=== PATIENT | male | born 1945 | race African-American/Black ===

== ENCOUNTER 2016-12-07 08:31 | Inpatient (IN) | payer MEDICARE ==
[2016-12-07] MEDS ORDERED: NS 0.9% 1000 ML* 1,000 ML IV SCH ×2 (08:45→11:45)
[2016-12-07 08:55] LABS: Hematocrit 43 % (42-52); Mean Corpuscular HGB Conc 32 g/dl (31-36); Mean Corpuscular Hemoglobin 29 pg (27-31); Mean Corpuscular Volume 88 fL (80-94); Mean Platelet Volume 9 um3 (7.4-10.4); Red Blood Count 4.91 10^6/ul (4.0-5.4); Red Cell Distribution Width 16 % (10.5-15); White Blood Count 11.8 10^3/ul (3.5-10.8)
[2016-12-07 09:03] LABS: Add Diff/Slide Review? Slide Review Added; Comments Flag Yes
[2016-12-07 09:13] LABS: Troponin I 0.03 ng/mL (<0.04)
[2016-12-07 09:15] LABS: ALT 171 U/L (7-52); AST 78 U/L (13-39); Albumin 3.6 g/dL (3.2-5.2); Anion Gap 7 mmol/L (2-11); B Type Natriuretic Peptide 39 pg/mL; Blood Urea Nitrogen 41 mg/dL (6-24); CO2 Carbon Dioxide 25 mmol/L (22-32); Calcium 10.5 mg/dL (8.6-10.3); Chloride 121 mmol/L (101-111); Creatine Kinase 606 U/L (10-223); EGFR African American 81.2 (>60); EGFR Non-African American 63.1 (>60); Globulin 4.2 g/dL (2-4); Glucose 166 mg/dL (70-100); Lipase < 10 U/L (11.0-82.0); Magnesium 2.5 mg/dL (1.9-2.7); Potassium 3.7 mmol/L (3.5-5.0); Sodium 153 mmol/L (133-145); Total Protein 7.8 g/dL (6.4-8.9)
--- NOTE | 2016-12-07 09:16 | RAD ---
INDICATION: Altered mental status. COMPARISON: Comparison is made with a prior CT of the brain from March 15, 2016. TECHNIQUE: Contiguous axial sections of the brain were obtained from the skull base to the vertex without contrast. FINDINGS: The ventricles, cisterns and sulci are enlarged consistent with diffuse atrophy. There are multiple focal areas of decreased density in the subcortical and periventricular white matter suggestive of severe chronic small vessel ischemic changes. There is a more focal area of decreased density in the left caudate nucleus most consistent with an old lacunar infarct, unchanged. There is no evidence for hemorrhage. There is an expansile mass present within the left maxillary sinus which is partially visualized on this study. There is mild mucosal thickening within the left ethmoid air cells. The visualized portion of the paranasal sinuses and mastoid air cells otherwise appear unremarkable. IMPRESSION: 1. NO EVIDENCE FOR GROSS ACUTE INFARCT, MASS EFFECT OR HEMORRHAGE. 2. ATROPHY AND SEVERE CHRONIC SMALL VESSEL ISCHEMIC CHANGES, UNCHANGED. 3. SMALL LACUNAR INFARCT, UNCHANGED. 4. EXPANSILE MASS IN THE LEFT MAXILLARY SINUS PARTIALLY VISUALIZED ON THIS STUDY.
--- NOTE | 2016-12-07 09:18 | RAD ---
INDICATION: Altered mental status, weakness. Lives alone. History unclear. COMPARISON: March 03, 2014 TECHNIQUE: Multidetector CT images foramen magnum to lung apices without contrast. Multiplanar reformation. REPORT: Negative for vertebral body or posterior element fracture. Negative for facet subluxation at any level. Negative for paravertebral hematoma. Multilevel mild degenerative spondylosis with predominant anterior vertebral endplate osteophytosis. Mild dorsal disc osteophyte complexes from C2-C3 through C6-C7. At C2-C3 and C3-C4 there is mild resulting impression on the ventral margin of the thecal sac consistent with mild acquired central canal stenosis. IMPRESSION: Negative for traumatic cervical spine injury.
[2016-12-07 09:22] LABS: Acetaminophen < 15 mcg/mL; Alcohol < 10 mg/dL (<10)
[2016-12-07] MEDS ORDERED: cefTRIAXone(*) 1 GM in NS 0.9% 50 ML* 50 ML IVPB ONE (09:32)
--- NOTE | 2016-12-07 09:32 | RAD ---
INDICATION: Altered mental status, facial swelling. Strokelike symptoms. Unclear history. COMPARISON: March 15, 2016 CT. TECHNIQUE: Multidetector CT base of the skull through mandible without contrast. Multiplanar reformation. REPORT: The LEFT mandibular ramus and condylar portion/TMJ joint are incompletely included in the [id number] limiting assessment. The visualized mandible is intact. Normal bilateral TMJ alignment. 6.4 cm AP by 5.8 cm transverse by 6.1 cm cephalocaudal heterogeneous density soft tissue mass centered at the RIGHT maxillary sinus with expansion of the sinus and osteolysis at both the medial, lateral, and inferior sinus narayanan with extension to the oropharyngeal mucosal space, nasal cavity, and laterally with mass impression on the overlying muscles of mastication facial expression. The mass demonstrates interval enlargement and further osteolysis of the anterior, medial, lateral, and inferior narayanan of the LEFT maxillary sinus as well as the base of the maxilla. The remaining paranasal sinuses are grossly clear. No acute traumatic facial fracture evident. No lymphadenopathy evident within the [id number]. No soft tissue hematoma evident. IMPRESSION: 1. No evidence for acute maxillofacial traumatic injury. 2. Interval growth of large mass lesion centered at the LEFT maxillary sinus with surrounding osteolysis of the maxillary sinus narayanan and base of the maxilla as described. Given the aggressive features and interval growth tissue sampling suggested to assess for malignancy if not previously performed.
[2016-12-07 09:33] LABS: TSH (Thyroid Stimulating Horm) 0.76 mcIU/mL (0.34-5.60)
--- NOTE | 2016-12-07 09:50 | RAD ---
Indication: Altered mental status. Strokelike symptoms. Comparison: August 17, 2016 Technique: Sitting AP chest 0905 hours Report: Mild retrocardiac LEFT lower lobe consolidation is new compared with the prior exam. The lungs and pleural spaces are otherwise clear. Rarefaction of the pulmonary markings favoring emphysema. The heart, pulmonary vasculature, and mediastinal contours are unremarkable. IMPRESSION: Consolidation at the LEFT lung base is concerning for potential pneumonia. Correlate with clinical assessment.
[2016-12-07 10:20] LABS: Alkaline Phosphatase 68 U/L (34-104)
--- NOTE | 2016-12-07 10:36 | ED ---
Raúl, DoctorRaquel, scribed for Kaden Padilla MD on 12/07/16 at 0855 . Neurological HPI - HPI Summary HPI Summary: LEVEL 5 CAVEAT secondary to AMS and pt being minimally responsive. This 71 y/o male arrives to [facility] via ambulance for stroke-like symptoms. Pt was last seen at his baseline about 1-2 days ago. Pt was found this morning minimally responsive. He is unable to answer any questions or follow commands at time of initial evaluation. PMHx is significant for CVA, HLD, and DM type II. He is known to be nonverbal at his baseline. - History of Current Complaint Chief Complaint: EDAltMentalStatus Stated Complaint: STROKE-LIKE SYMPTOMS Time Seen by Provider: 12/07/16 08:35 Hx Obtained From: EMS, Medical Records Hx From Patient Unobtainable Due To: Altered Mental Status - Level 5 Caveat Onset/Duration: Still Present Current Severity: Moderate Seizure Severity: Moderate Character: Responsiveness Aggravating: Nothing Alleviating: Nothing Associated Signs and Symptoms: Positive: AMS - Additional Pertinent History Primary Care Physician: ROBERTO - Allergy/Home Medications Allergies/Adverse Reactions: Allergies Allergy/AdvReac Type Severity Reaction Status Date / Time No Known Allergies Allergy Verified 05/15/16 16:01 PMH/Surg Hx/FS Hx/Imm Hx Endocrine/Hematology History: Reports: Hx Diabetes - DM II Denies: Hx Anticoagulant Therapy, Hx Thyroid Disease Cardiovascular History: Reports: Hx Hypertension Denies: Hx Pacemaker/ICD Respiratory History: Denies: Hx Asthma, Hx Chronic Obstructive Pulmonary Disease (COPD) History: Denies: Hx Renal Disease Sensory History: Denies: Hx Deafness, Hx Hearing Aid, Hx Hearing Problem Neurological History: Denies: Hx Dementia, Hx Seizures Psychiatric History: Denies: Hx Eating Disorder, Hx Panic Disorder, Hx of Violent Episodes Against Others, Hx Substance Abuse Infectious Disease History: Denies: Hx Hepatitis, Hx Human Immunodeficiency Virus (HIV) - Family History Known Family History: Positive: Unknown - LEVEL 5 CAVEAT secondary to AMS - Social History Occupation: Retired Alcohol Use: None Hx Substance Use: No Substance Use Type: Reports: None Hx Tobacco Use: Yes Smoking Status (MU): Light Every Day Tobacco Smoker Type: Cigarettes Amount Used/How Often: 1 a day Length of Time of Smoking/Using Tobacco: 30 Have You Smoked in the Last Year: Yes Review of Systems - ROS Summary Review of Systems Summary: ROS limited due to Level 5 Caveat Neurological: Other - Positive for AMS. Minimally responsive All Other Systems Reviewed And Are Negative: No Physical Exam Triage Information Reviewed: Yes Vital Signs On Initial Exam: Initial Vitals BP 133/90 12/07/16 08:46 Vital Signs Reviewed: Yes Skin: Positive: Warm, Skin Color Reflects Adequate Perfusion, Dry Eyes: Positive: EOMI - pupils minimally reactive, ASHLEY - pupils minimally reactive ENT: Positive: Normal ENT inspection Neck: Positive: Supple, Nontender Respiratory/Lung Sounds: Positive: Clear to Auscultation, Breath Sounds Present Cardiovascular: Positive: IRR, Tachycardia Abdomen Description: Positive: Nontender, Soft Bowel Sounds: Positive: Present Musculoskeletal: Negative: Strength/ROM Intact - unable to move legs or right arm Neurological: Positive: Other - Somewhat able to control movement of LUE arm.. Negative: Sensory/Motor Intact - Patient does not move either leg or right arm, minimally responsive Psychiatric: Positive: Other - Patient minimally responsive, Patient Uncooperative for Exam Diagnostics - Vital Signs Vital Signs Temp Pulse Resp BP Pulse Ox 12/07/16 10:00 110 19 100 12/07/16 09:30 115 22 99 12/07/16 09:10 116 20 99 12/07/16 08:49 98.8 F 88 22 133/90 97 12/07/16 08:47 117 21 92 12/07/16 08:46 133/90 - Laboratory Lab Results: Lab Results 12/07/16 12/07/16 12/07/16 Range/Units 08:45 08:45 08:45 WBC 11.8 H (3.5-10.8) 10^3/ul RBC 4.91 (4.0-5.4) 10^6/ul Hgb 14.0 (14.0-18.0) g/dl Hct 43 (42-52) % MCV 88 (80-94) fL MCH 29 (27-31) pg MCHC 32 (31-36) g/dl RDW 16 H (10.5-15) % Plt Count 267 (150-450) 10^3/ul MPV 9 (7.4-10.4) um3 Neut % (Auto) 86.3 H (38-83) % Lymph % (Auto) 6.1 L (25-47) % [place] % (Auto) 7.1 (1-9) % Eos % (Auto) 0.1 (0-6) % Baso % (Auto) 0.4 (0-2) % Absolute Neuts (auto) 10.2 H (1.5-7.7) 10^3/ul Absolute Lymphs (auto) 0.7 L (1.0-4.8) 10^3/ul Absolute Monos (auto) 0.8 (0-0.8) 10^3/ul Absolute Eos (auto) 0 (0-0.6) 10^3/ul Absolute Basos (auto) 0 (0-0.2) 10^3/ul Absolute Nucleated RBC 0 10^3/ul Nucleated RBC % 0 INR (Anticoag Therapy) 1.18 H (0.89-1.11) APTT 29.5 (26.0-36.3) seconds Sodium 153 H (133-145) mmol/L Potassium 3.7 (3.5-5.0) mmol/L Chloride 121 H (101-111) mmol/L Carbon Dioxide 25 (22-32) mmol/L Anion Gap 7 (2-11) mmol/L BUN 41 H (6-24) mg/dL Creatinine 1.14 (0.67-1.17) mg/dL Est GFR ( Amer) 81.2 (>60) Est GFR (Non-Af Amer) 63.1 (>60) BUN/Creatinine Ratio 36.0 H (8-20) Glucose 166 H (70-100) mg/dL Lactic Acid (0.5-2.0) mmol/L Calcium 10.5 H (8.6-10.3) mg/dL Magnesium 2.5 (1.9-2.7) mg/dL Total Bilirubin 0.70 (0.2-1.0) mg/dL AST 78 H (13-39) U/L ALT 171 H (7-52) U/L Alkaline Phosphatase 68 (34-104) U/L Ammonia Total Creatine Kinase 606 H (10-223) U/L CK-MB (CK-2) 2.1 (0.6-6.3) ng/mL Troponin I 0.03 (<0.04) ng/mL C-Reactive Protein 15.70 H (< 5.00) mg/L B-Natriuretic Peptide ( - 100) pg/mL Total Protein 7.8 (6.4-8.9) g/dL Albumin 3.6 (3.2-5.2) g/dL Globulin 4.2 H (2-4) g/dL Albumin/Globulin Ratio 0.9 L (1-3) Lipase < 10 L (11.0-82.0) U/L TSH 0.76 (0.34-5.60) mcIU/mL Acetaminophen < 15 mcg/mL Serum Alcohol < 10 (<10) mg/dL 12/07/16 12/07/16 Range/Units 08:45 08:45 WBC (3.5-10.8) 10^3/ul RBC (4.0-5.4) 10^6/ul Hgb (14.0-18.0) g/dl Hct (42-52) % MCV (80-94) fL MCH (27-31) pg MCHC (31-36) g/dl RDW (10.5-15) % Plt Count (150-450) 10^3/ul MPV (7.4-10.4) um3 Neut % (Auto) (38-83) % Lymph % (Auto) (25-47) % [place] % (Auto) (1-9) % Eos % (Auto) (0-6) % Baso % (Auto) (0-2) % Absolute Neuts (auto) (1.5-7.7) 10^3/ul Absolute Lymphs (auto) (1.0-4.8) 10^3/ul Absolute Monos (auto) (0-0.8) 10^3/ul Absolute Eos (auto) (0-0.6) 10^3/ul Absolute Basos (auto) (0-0.2) 10^3/ul Absolute Nucleated RBC 10^3/ul Nucleated RBC % INR (Anticoag Therapy) (0.89-1.11) APTT (26.0-36.3) seconds Sodium (133-145) mmol/L Potassium (3.5-5.0) mmol/L Chloride (101-111) mmol/L Carbon Dioxide (22-32) mmol/L Anion Gap (2-11) mmol/L BUN (6-24) mg/dL Creatinine (0.67-1.17) mg/dL Est GFR ( Amer) (>60) Est GFR (Non-Af Amer) (>60) BUN/Creatinine Ratio (8-20) Glucose (70-100) mg/dL Lactic Acid 1.7 (0.5-2.0) mmol/L Calcium (8.6-10.3) mg/dL Magnesium (1.9-2.7) mg/dL Total Bilirubin (0.2-1.0) mg/dL AST (13-39) U/L ALT (7-52) U/L Alkaline Phosphatase (34-104) U/L Ammonia Pending Total Creatine Kinase (10-223) U/L CK-MB (CK-2) (0.6-6.3) ng/mL Troponin I (<0.04) ng/mL C-Reactive Protein (< 5.00) mg/L B-Natriuretic Peptide 39 ( - 100) pg/mL Total Protein (6.4-8.9) g/dL Albumin (3.2-5.2) g/dL Globulin (2-4) g/dL Albumin/Globulin Ratio (1-3) Lipase (11.0-82.0) U/L TSH (0.34-5.60) mcIU/mL Acetaminophen mcg/mL Serum Alcohol (<10) mg/dL Result Diagrams: 12/07/16 08:45 12/07/16 08:45 Lab Statement: Any lab studies that have been ordered have been reviewed, and results considered in the medical decision making process. - Radiology Chest X-Ray Radiology Interpretation Completed By: Radiologist - IMPRESSION: Consolidation at the LEFT lung base is concerning for potential pneumonia. Correlate with clinical assessment. - CT Maxillofacial CT CT Interpretation Completed By: Radiologist - IMPRESSION: 1. No evidence for acute maxillofacial traumatic injury. 2. Interval growth of large mass lesion centered at the LEFT maxillary sinus with surrounding osteolysis of the maxillary sinus narayanan and base of the maxilla as described. Given the aggressive features and interval growth tissue sampling suggested to assess for malignancy if not previously performed. Cervical Spine CT CT Interpretation Completed By: Radiologist - IMPRESSION: Negative for traumatic cervical spine injury. Brain CT CT Interpretation Completed By: Radiologist - IMPRESSION: 1. NO EVIDENCE FOR GROSS ACUTE INFARCT, MASS EFFECT OR HEMORRHAGE. 2. ATROPHY AND SEVERE CHRONIC SMALL VESSEL ISCHEMIC CHANGES, UNCHANGED. 3. SMALL LACUNAR INFARCT, UNCHANGED. 4. EXPANSILE MASS IN THE LEFT MAXILLARY SINUS PARTIALLY VISUALIZED ON THIS STUDY. Course/Dx - Course Assessment/Plan: ADMIT HOSPITALIST STABLE. - Diagnoses Provider Diagnoses: Altered mental state, Weakness - Physician Notifications Discussed Care of Patient With: 09:41 - Discussed patient care with Dr. Chavira ( hospitalist). Dr. Chavira agrees to admit him. Discharge - Discharge Plan Condition: Stable Disposition: ADMITTED TO [facility] Referrals: Destiney Can MD [Primary Care Provider] - The documentation as recorded by the Doctor mendoza Tahera accurately reflects the service I personally performed and the decisions made by me, Kaden Padilla MD.
[2016-12-07] MEDS ORDERED: Acetaminophen TAB* 325 MG PO PRN (11:36)
[2016-12-07] MEDS ORDERED: Dextrose 50% Syringe 50 ML* 25 GM/50 ML SYRINGE IV PUSH PRN (11:36)
[2016-12-07] MEDS ORDERED: Ondansetron INJ* 2 MG/ML VIAL IV PRN (11:36)
[2016-12-07 11:48] LABS: Ammonia 57 mol/L (16-53)
[2016-12-07] MEDS: NS 0.9% 1000 ML* 2,000 ML IV ONE ×2 (11:58→12:52)
--- NOTE | 2016-12-07 12:42 | RAD ---
Indication: RIGHT hip through knee pain without preceding injury. Comparison: No relevant prior exams available on the [facility] [place] PACS. Technique: AP pelvis and AP and crosstable lateral views RIGHT hip. AP and crosstable lateral views RIGHT femur. AP and crosstable lateral views RIGHT knee. Report: The RIGHT hip is normally located. No fracture RIGHT proximal femur or pelvis or pelvic joint diastases. Mild superolateral joint space narrowing and osteophytosis at the RIGHT hip. Negative for fracture of the femur or about the knee. Minimal osteophytosis at the knee. Trace suprapatellar joint effusion. Negative for fracture or malalignment at the knee. Diffuse vascular calcifications. Unremarkable soft tissue contours. IMPRESSION: 1. No radiographic evidence for RIGHT hip fracture. As x-rays may be negative with nondisplaced hip fracture if there is persistent clinical concern MRI or in setting of contraindication to MRI or limitation in emergent access to MRI CT would be suggested. 2. Negative for diaphyseal fracture of the RIGHT femur or fracture about the knee. 3. Mild hip and knee osteoarthritis. 4. Peripheral vascular disease.
--- NOTE | 2016-12-07 12:42 | RAD ---
Indication: RIGHT hip through knee pain without preceding injury. Comparison: No relevant prior exams available on the [facility] [place] PACS. Technique: AP pelvis and AP and crosstable lateral views RIGHT hip. AP and crosstable lateral views RIGHT femur. AP and crosstable lateral views RIGHT knee. Report: The RIGHT hip is normally located. No fracture RIGHT proximal femur or pelvis or pelvic joint diastases. Mild superolateral joint space narrowing and osteophytosis at the RIGHT hip. Negative for fracture of the femur or about the knee. Minimal osteophytosis at the knee. Trace suprapatellar joint effusion. Negative for fracture or malalignment at the knee. Diffuse vascular calcifications. Unremarkable soft tissue contours. IMPRESSION: 1. No radiographic evidence for RIGHT hip fracture. As x-rays may be negative with nondisplaced hip fracture if there is persistent clinical concern MRI or in setting of contraindication to MRI or limitation in emergent access to MRI CT would be suggested. 2. Negative for diaphyseal fracture of the RIGHT femur or fracture about the knee. 3. Mild hip and knee osteoarthritis. 4. Peripheral vascular disease.
--- NOTE | 2016-12-07 12:42 | RAD ---
Indication: RIGHT hip through knee pain without preceding injury. Comparison: No relevant prior exams available on the [facility] [place] PACS. Technique: AP pelvis and AP and crosstable lateral views RIGHT hip. AP and crosstable lateral views RIGHT femur. AP and crosstable lateral views RIGHT knee. Report: The RIGHT hip is normally located. No fracture RIGHT proximal femur or pelvis or pelvic joint diastases. Mild superolateral joint space narrowing and osteophytosis at the RIGHT hip. Negative for fracture of the femur or about the knee. Minimal osteophytosis at the knee. Trace suprapatellar joint effusion. Negative for fracture or malalignment at the knee. Diffuse vascular calcifications. Unremarkable soft tissue contours. IMPRESSION: 1. No radiographic evidence for RIGHT hip fracture. As x-rays may be negative with nondisplaced hip fracture if there is persistent clinical concern MRI or in setting of contraindication to MRI or limitation in emergent access to MRI CT would be suggested. 2. Negative for diaphyseal fracture of the RIGHT femur or fracture about the knee. 3. Mild hip and knee osteoarthritis. 4. Peripheral vascular disease.
[2016-12-07] MEDS: cefTRIAXone VIAL(*) 1,000 MG in NS 0.9% 50 ML* 50 ML IVPB SCH (12:53)
[2016-12-07] MEDS: Azithromycin IV(*) 500 MG in NS 0.9% 250 ML* 250 ML IVPB SCH (14:44)
[2016-12-07] MEDS: Aspirin Low Dose CHEW TAB* 81 MG PO SCH (14:46)
--- NOTE | 2016-12-07 14:46 | HP ---
HISTORY AND PHYSICAL: DATE OF ADMISSION: 12/07/16 PRIMARY CARE PROVIDER: Dr. Can. ATTENDING PHYSICIAN WHILE IN THE HOSPITAL: Edgar Chavira MD * (report dictated by Phillip Burton NP). CHIEF COMPLAINT: 1. Weakness. 2. Altered mental status. HISTORY OF PRESENT ILLNESS: I would like to preface this report by stating that the patient has a significant amount of altered mental status. He does not give much history and there is no family member present, but I did touch base with the patient's significant other and the ER physician in charge in the patient's care. The patient carries a history of stroke according to the , with residual left- sided weakness, diabetes, hypertension and hyperlipidemia. He comes in today, he was found by his aide or by the it is unsure, he was not acting himself, he was weak. He apparently was sick on Wednesday and the ambulance was called by the . It was felt that the reason he was not acting himself on Wednesday as his sugars were low and the patient did not come into the ER. The patient has not really been eating or drinking at his baseline over the weekend. The states that he has been coughing and having , in her words, a junky cough for the last couple days. There has been no sick contacts, and she also states that she has noticed the patient has a new open area on his sacrum, a bed sore she states. The patient was brought to the hospital today because he was weak, he was not acting himself, he was essentially nonverbal, and so the called 911 and he was brought in. There was report by Dr. Padilla that the patient was found on the floor, but I asked the if the patient was found on the floor, and she states no, so it is unclear where he was actually found. She states he was in his hospital bed and he had not fallen or had any trauma but the patient is complaining of having right knee pain, particularly with movement. There has been no reported fevers and the denied him having any vomiting or diarrhea or any abdominal discomfort, and the patient currently is denying having any chest pain and he states he does not feel short of breath. There was concern when he came in, it was noted that he appeared to be profoundly dehydrated and he was tachycardic and there was concern for a new left lower lobe infiltrate, so the hospitalist service was asked to evaluate for admission. PAST MEDICAL HISTORY: According to the includes: 1. Diabetes. 2. Hypertension. 3. Hyperlipidemia. 4. CVA. PAST SURGICAL HISTORY: Denied. HOME MEDICATIONS: According to Domitila, I am going to try and get a list if possible, includes: 1. Metformin 500 mg twice a day. 2. Potassium 10 mEq daily. 3. MiraLAX 17 g daily. 4. Lopressor 50 mg p.o. b.i.d. 5. Cozaar 50 mg daily. 6. Tylenol 650 mg p.o. every 4 hours as needed. ALLERGIES TO MEDICATIONS: Include no known drug allergies. FAMILY HISTORY: Unable to be obtained at this point. SOCIAL HISTORY: According to the he does not smoke, he does not drink alcohol. Surrogate decision maker is his girlfriend or , Domitila. REVIEW OF SYSTEMS: There is no documented fever. No significant weight change. There was no double vision. There is no ear discharge. There is no rhinorrhea. There was no sore throat. The patient does admit to having cough. He denies feeling short of breath currently. He denies having any chest pain. There was no nausea, no vomiting. There was no report of dysuria, frequency or any loss of consciousness. Review of 14 systems completed, all others negative. PHYSICAL EXAMINATION GENERAL: At this time, Mr. Ramirez is a 71-year-old male patient. He appears to be chronically ill. He is sitting in the ER stretcher. He does not appear to be in any acute distress. He is awake, he is alert to himself only. He does appear to be cachetic. VITAL SIGNS: There is reporting here of blood pressure of 64/42, but I repeated and it was 110/60. His pulse is 118, respirations 20. O2 sat, there was a reported one here of 64%, but while in the room with him and he was on 2 L , it is at 100%, so I am unclear of the validity of that low reading. His temperature was 99.2, which was repeated in the room. HEENT: Head is atraumatic, normocephalic. Eyes: Sclerae anicteric. Throat: Oral mucosa appears to be dry. No oropharyngeal erythema. LUNGS: He had crackles in left base. Equal diaphragmatic expansion. HEART: Sounds S1, S2. He is tachycardic. ABDOMEN: Soft, flat, nontender. Bowel sounds present. EXTREMITIES: Pulses were 2+ throughout. He has difficulty moving the left side , but according to the this is baseline. He is able to move the right extremity with 3/5 strength. NEUROLOGIC: He does awake and he follows simple commands. Left side the business services administrator is weak, and the left lower extremity was weak, but again this appears to be at baseline per the . His speech was clear. He is confused to time and to place. SKIN: He has a pressure sore noted to the sacrum. LABORATORY DATA: The labs today revealed WBC 11.8, RBC of 4.91, hemoglobin of 14.0, hematocrit of 43, and platelet count of 267. The INR was 1.18, PTT was 29.5 and sodium was 153, the potassium is 3.7, chloride 121, bicarb was 25. BUN 41, creatinine 1.14, glucose was 166, lactic was 1.7, calcium 10.5, total bilirubin 0.7, AST 7, ALT 171. His ammonia was 57. CK was 606, CK-MB was 2.1, troponin 0.03. His albumin was 3.6. Toxicology was negative. IMAGING: He had multiple imaging in the ER starting out with a chest x-ray. My impression is he does appear to have an infiltrate in that left lower lobe. Radiology read it as consolidation in the left lung base concerning for potential pneumonia. Clinical assessment: He had a brain CT obtained today as well, which shows no evidence of gross acute infarct, mass effect or hemorrhage , atrophy and severe chronic small vessel ischemic changes, unchanged small left lacunar infarct, expansile mass in the left maxillary sinus partially visualized in the study. There was a CT of the cervical spine, which showed negative for traumatic cervical spine injury. There was a maxillofacial CT, which revealed no evidence for acute maxillofacial traumatic injury. He had interval growth of a large mass lesion centered at the left maxillary sinus with surrounding osteolysis of the maxillary sinus wall and base of the maxilla as described, given the aggressive features an internal growth tissue sampling, should be performed. He did have an EKG obtained today as well, shows a sinus tachycardia with PAC's. No ST elevations or T-wave inversions were noted. It is reviewed to a previous EKG, it appears to be similar. Old medical records were reviewed. He had an echo in August 2016, which showed an EF of greater than 65%. ASSESSMENT AND PLAN: Mr. Ramirez is a 71-year-old male patient who comes into the ER today with complaints of weakness, altered mental status and on evaluation found that he appears to have pneumonia. He will be admitted under inpatient status for: 1. Weakness, altered mental status: I suspect that this is probably related to an infection versus pneumonia, but I do think we need to get blood cultures, urine, flu swab, Legionella antigen and strep pneumo antigen. For the time being, I am going to put him on ceftriaxone and Rocephin. We will try to get a sputum culture if possible. The patient does appear to be profoundly dehydrated , so I am going to give him 2 L of normal saline, then saline at 125 an hour and see if this helps him and we will continue to follow him, but I think the underlying source of the weakness and altered mental status is probably just pneumonia. 2. Left maxillary mass. The patient had seen Dr. Cesar in the past. The patient was to follow up in [facility] for the mass, which he never had done. 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 I did touch base with Dr. Cesar who has seen the patient. It is felt that the extensive type of surgery that he would need to excise this mass, the patient would not be able to tolerate given his overall medical status and frankly I agree with Dr. Cesar, so at this point he can be followed up outpatient and most likely he is going to be supportive care and possibly palliative care, as this mass is most likely going to erode further at this point. Again, I did touch base with Dr. Cesar who is familiar with the case. 3. Diabetes. He will be on a lispro sliding scale. 4. Hypertension. I am going to continue the beta-rajinder but hold his diuretic , the hydrochlorothiazide. 5. Hypernatremia, probably secondary to dehydration. We are going to repeat his BMP later. 6. Elevated CK, again probably secondary to the fact that the patient was possibly found on the floor. We will trend these and hydrate the patient. 7. Hyperlipidemia. He is not on a statin. 8. History of cerebrovascular accident. Continue secondary prevention. 9. Again dehydration, 2 L normal saline and saline at 125 cc an hour. 10. DVT prophylaxis. He will be placed on heparin subcu. 11. Pressure ulcer. I placed a wound care consult. 12. Fluids, electrolytes and nutrition. He can have a regular diet. 13. Code status: He is full code. We will need to discuss this with his when she is available. TIME SPENT: On admission is 70 minutes, greater than half the time was spent face- to-face with the patient obtaining my history and physical, other half the time spent going over the plan of care with the patient and implementing the plan of care. I did discuss the plan of care my attending, Dr. Chavira; he is in agreement. PHILLIP BURTON NP CC: Dr. Can* [id number]/[facility] #: [id number] ATUL
[2016-12-07] MEDS: Metoprolol Tartrate TAB* 50 mg PO SCH ×2 (14:47→21:36)
[2016-12-07] MEDS: Heparin VIAL(*) 5000 UNITS/ML VIAL (FIVE THOUSAND) SUBCUT SCH ×2 (14:50→21:35)
[2016-12-07 15:28] LABS: BUN/Creatinine Ratio 33.3 (8-20); Calcium 9.5 mg/dL (8.6-10.3); EGFR African American 89.3 (>60); EGFR Non-African American 69.4 (>60)
[2016-12-07] MEDS: Insulin LISPRO* 1 UNITS UNIT SUBCUT SCH ×2 (16:44→21:35)
[2016-12-07] MEDS: D5W 1/2 NS 1000 ML BAG* 1,000 ML IV SCH (17:32)
[2016-12-07 20:12] LABS: BUN/Creatinine Ratio 34.4 (8-20); Calcium 9.2 mg/dL (8.6-10.3); EGFR African American 102.7 (>60); EGFR Non-African American 79.9 (>60); Potassium 3.8 mmol/L (3.5-5.0)
[2016-12-08 03:17] LABS: BUN/Creatinine Ratio 34.5 (8-20); Calcium 9.3 mg/dL (8.6-10.3); EGFR African American 115.5 (>60); EGFR Non-African American 89.8 (>60); Potassium 3.9 mmol/L (3.5-5.0)
[2016-12-08] MEDS: D5W 1/2 NS 1000 ML BAG* 1,000 ML IV SCH (03:25)
[2016-12-08] MEDS: Heparin VIAL(*) 5000 UNITS/ML VIAL (FIVE THOUSAND) SUBCUT SCH ×3 (05:46→20:58)
[2016-12-08 06:03] LABS: Hematocrit 36 % (42-52); Hemoglobin 11.5 g/dl (14.0-18.0); Mean Corpuscular HGB Conc 32 g/dl (31-36); Mean Corpuscular Hemoglobin 28 pg (27-31); Mean Corpuscular Volume 89 fL (80-94); Mean Platelet Volume 9 um3 (7.4-10.4); Red Blood Count 4.08 10^6/ul (4.0-5.4); Red Cell Distribution Width 17 % (10.5-15); White Blood Count 9.6 10^3/ul (3.5-10.8)
[2016-12-08 06:15] LABS: Albumin 2.8 g/dL (3.2-5.2); BUN/Creatinine Ratio 35.4 (8-20); Calcium 9.1 mg/dL (8.6-10.3); Direct Bilirubin 0.1 mg/dL (0.03-0.18); EGFR Non-African American 96.4 (>60); Globulin 3.3 g/dL (2-4); Indirect Bilirubin 0.3 mg/dL (0.3-1.0); Potassium 3.7 mmol/L (3.5-5.0); Total Bilirubin 0.4 mg/dL (0.2-1.0); Total Protein 6.1 g/dL (6.4-8.9)
[2016-12-08] MEDS ORDERED: D5W 1000 ML BAG* 1,000 ML IV SCH (09:00)
[2016-12-08] MEDS: Insulin LISPRO* 1 UNITS UNIT SUBCUT SCH ×3 (10:25→18:10)
[2016-12-08] MEDS: Aspirin Low Dose CHEW TAB* 81 MG PO SCH (10:26)
[2016-12-08] MEDS: Metoprolol Tartrate TAB* 50 mg PO SCH ×2 (10:26→20:58)
[2016-12-08] MEDS: cefTRIAXone VIAL(*) 1,000 MG in NS 0.9% 50 ML* 50 ML IVPB SCH (12:05)
[2016-12-08] MEDS: Azithromycin IV(*) 500 MG in NS 0.9% 250 ML* 250 ML IVPB SCH (13:51)
[2016-12-08 15:46] LABS: BUN/Creatinine Ratio 28.1 (8-20); Calcium 8.7 mg/dL (8.6-10.3); EGFR African American 108.1 (>60); Potassium 3.4 mmol/L (3.5-5.0)
[2016-12-08 16:25] LABS: Urine Bacteria Absent (Absent); Urine Bilirubin Negative (Negative); Urine Glucose Negative (Negative); Urine Nitrite Negative (Negative)
--- NOTE | 2016-12-08 16:38 | PN ---
Subjective Date of Service: 12/08/16 Interval History: HOSPITALIST PROGRESS NOTE Patient seen and examined at bedside. He is awake, follows me with his eyes, but did not talk to me. Family History: Unchanged from Admission Social History: Unchanged from Admission Past Medical History: Unchanged from Admission Objective Active Medications: Acetaminophen (Tylenol Tab*) 650 mg PO Q4H PRN PRN Reason: FEVER/PAIN Aspirin (Aspirin Low Dose Tab*) 81 mg PO DAILY [facility] Last Admin: 12/08/16 10:26 Dose: 81 mg Dextrose (D50w Syringe 50 Ml*) 12.5 gm IV PUSH .FOR FS < 60 - SS PRN PRN Reason: FS < 60 Heparin Sodium (Porcine) (Heparin Vial(*)) 5,000 units SUBCUT Q8HR [facility] Last Admin: 12/08/16 14:43 Dose: 5,000 units Ceftriaxone Sodium 1,000 mg/ (Sodium Chloride) 50 mls @ 200 mls/hr IVPB Q24H [facility] Last Admin: 12/08/16 12:05 Dose: 200 mls/hr Azithromycin 500 mg/ Sodium (Chloride) 250 mls @ 250 mls/hr IVPB Q24H [facility] Last Admin: 12/08/16 13:51 Dose: 250 mls/hr Potassium Chloride (Potassium Chloride 10 Meq/50 Ml Ivpremix*) 10 meq in 50 mls @ 50 mls/hr IV Q1H [facility] Stop: 12/08/16 19:59 Dextrose (D5w 1000 Ml Bag*) 1,000 mls @ 75 mls/hr IV PER RATE [facility] Insulin Human Lispro (Humalog*) 0 units SUBCUT AC [facility] PRN Reason: Protocol Last Admin: 12/08/16 12:05 Dose: 1 units Metoprolol Tartrate (Lopressor Tab*) 50 mg PO BID [facility] Last Admin: 12/08/16 10:26 Dose: 50 mg Ondansetron HCl (Zofran Inj*) 4 mg IV Q6H PRN PRN Reason: NAUSEA Vital Signs 12/08/16 12/08/16 12/08/16 08:00 09:17 11:36 Temperature 98.2 F Pulse Rate 66 Respiratory 16 16 Rate Blood Pressure 93/63 (mmHg) O2 Sat by Pulse 96 100 Oximetry Oxygen Devices in Use Now: Nasal Cannula Appearance: Elderly male sitting up in bed in [facility]. Eyes: No Scleral Icterus Ears/Nose/Mouth/Throat: Mucous Membranes Moist Neck: Trachea Midline Respiratory: Symmetrical Chest Expansion and Respiratory Effort, - - BS+ bilaterally with crackles in the left base Cardiovascular: RRR - Normal S1 and S2 Abdominal: NL Sounds; No Tenderness; No Distention Extremities: No Edema Neurological: - - Alert and awake, doesn't follow commands Lines/Tubes/Other Access: Clean, Dry and Intact Peripheral IV Nutrition: Taking PO's Result Diagrams: 12/08/16 05:12 12/08/16 15:20 Assess/Plan/Problems-Billing Assessment: Mr. Ramirez is a 71yo M with PMH of type 2 DM, HTN, HLD, CVA, left maxilla mass who presented to ED with weakness and altered MS, found to be dehydrated and hypernatremic. - Patient Problems (1) Altered mental status Comment: - He is more awake today. - Suspect secondary to dehydration and hypernatremia. (2) Hypernatremia Comment: - Likely secondary to poor PO intake associated with pneumonia. - Continue D5w IV and monitor Na. (3) Pneumonia Comment: - Although he has no cough or dyspnea, CxR showed consolidation in the left lung base and pneumonia could explain poor PO intake causing dehydration with hypernatremia and altered MS. - Cultures show no growth so far and Influenza was negative. - Check Legionella and pneumococcal Ag. - Continue Ceftriaxone and Zithromax. (4) Urinary retention Comment: - Place Ortiz catheter. 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 - Patient has known pleomoprhic adenoma and admitting provider discussed findings with ENT (Dr. Cesar) - patient was supposed to f/u in [facility], but didn 't. Will d/w family as patient may be a candidate for Palliative care. (6) Diabetes Comment: - Continue Lispro SS. (7) HTN (hypertension) Comment: - BP is on the softer side - continue Metoprolol with holding parameters. (8) Pressure ulcer Comment: - Right buttock pressure ulcer, present on admission, unstageable at this time. - Wound care input appreciated. (9) DVT prophylaxis Comment: - SQ heparin. Status and Disposition: Inpatient.
[2016-12-08] MEDS: KCL 10 MEQ/50 ML IVPREMIX* 10 MEQ/50 ML BAG IV SCH ×3 (17:26→20:35)
[2016-12-08] MEDS: D5W 1000 ML BAG* 1,000 ML IV SCH (19:38)
[2016-12-08 22:58] LABS: BUN/Creatinine Ratio 23.6 (8-20); Calcium 8.4 mg/dL (8.6-10.3); EGFR African American 108.1 (>60); Potassium 4.1 mmol/L (3.5-5.0)
[2016-12-09] MEDS: D5W 1000 ML BAG* 1,000 ML IV SCH (01:50)
[2016-12-09] MEDS: Heparin VIAL(*) 5000 UNITS/ML VIAL (FIVE THOUSAND) SUBCUT SCH ×3 (05:16→21:55)
[2016-12-09 06:01] LABS: BUN/Creatinine Ratio 25.3 (8-20); Calcium 8.4 mg/dL (8.6-10.3); EGFR Non-African American 96.4 (>60); Potassium 4.1 mmol/L (3.5-5.0)
[2016-12-09] MEDS: Metoprolol Tartrate TAB* 50 mg PO SCH ×2 (08:41→21:55)
[2016-12-09] MEDS: Insulin LISPRO* 1 UNITS UNIT SUBCUT SCH ×3 (08:42→16:58)
[2016-12-09] MEDS: Aspirin Low Dose CHEW TAB* 81 MG PO SCH (08:42)
[2016-12-09] MEDS: cefTRIAXone VIAL(*) 1,000 MG in NS 0.9% 50 ML* 50 ML IVPB SCH (11:26)
[2016-12-09] MEDS: Azithromycin IV(*) 500 MG in NS 0.9% 250 ML* 250 ML IVPB SCH (12:14)
--- NOTE | 2016-12-09 14:16 | PN ---
Subjective Date of Service: 12/09/16 Interval History: HOSPITALIST PROGRESS NOTE Patient seen and examined at bedside. He is more awake today, denies pain. Tolerating diet well with good appetite. Family History: Unchanged from Admission Social History: Unchanged from Admission Past Medical History: Unchanged from Admission Objective Active Medications: Acetaminophen (Tylenol Tab*) 650 mg PO Q4H PRN PRN Reason: FEVER/PAIN Last Admin: 12/08/16 17:25 Dose: 650 mg Aspirin (Aspirin Low Dose Tab*) 81 mg PO DAILY [facility] Last Admin: 12/09/16 08:42 Dose: 81 mg Dextrose (D50w Syringe 50 Ml*) 12.5 gm IV PUSH .FOR FS < 60 - SS PRN PRN Reason: FS < 60 Heparin Sodium (Porcine) (Heparin Vial(*)) 5,000 units SUBCUT Q8HR [facility] Last Admin: 12/09/16 05:16 Dose: 5,000 units Ceftriaxone Sodium 1,000 mg/ (Sodium Chloride) 50 mls @ 200 mls/hr IVPB Q24H [facility] Last Admin: 12/09/16 11:26 Dose: 200 mls/hr Azithromycin 500 mg/ Sodium (Chloride) 250 mls @ 250 mls/hr IVPB Q24H [facility] Last Admin: 12/09/16 12:14 Dose: 250 mls/hr Dextrose (D5w 1000 Ml Bag*) 1,000 mls @ 75 mls/hr IV PER RATE [facility] Last Admin: 12/09/16 01:50 Dose: 75 mls/hr Insulin Human Lispro (Humalog*) 0 units SUBCUT AC [facility] PRN Reason: Protocol Last Admin: 12/09/16 12:13 Dose: 2 units Metoprolol Tartrate (Lopressor Tab*) 50 mg PO BID [facility] Last Admin: 12/09/16 08:41 Dose: 50 mg Ondansetron HCl (Zofran Inj*) 4 mg IV Q6H PRN PRN Reason: NAUSEA Vital Signs 12/09/16 11:44 Temperature 98.8 F Pulse Rate 87 Respiratory 20 Rate Blood Pressure 100/54 (mmHg) O2 Sat by Pulse 100 Oximetry Oxygen Devices in Use Now: Nasal Cannula Appearance: Elderly male lying in bed in NAD. Eyes: No Scleral Icterus Ears/Nose/Mouth/Throat: Mucous Membranes Moist Neck: Trachea Midline Respiratory: Symmetrical Chest Expansion and Respiratory Effort, Clear to Auscultation Cardiovascular: RRR - Normal S1 and S2 Abdominal: NL Sounds; No Tenderness; No Distention Extremities: No Edema Neurological: - - Alert and awake, oriented to self, but didn't follow commands Lines/Tubes/Other Access: Clean, Dry and Intact Peripheral IV Nutrition: Taking PO's Result Diagrams: 12/08/16 05:12 12/09/16 05:15 Assess/Plan/Problems-Billing Assessment: Mr. Ramirez is a 71yo M with PMH of type 2 DM, HTN, HLD, CVA, left maxilla mass who presented to ED with weakness and altered MS, found to be dehydrated and hypernatremic. - Patient Problems (1) Altered mental status Comment: - He is more awake today. - Suspect secondary to dehydration and hypernatremia. - Talked to his SO - she thinks his MS is close to his baseline. (2) Hypernatremia Comment: - Likely secondary to poor PO intake associated with pneumonia. - Sodium has normalized and he has good PO intake. - Will d/c/ IVF. (3) Pneumonia Comment: - Although he has no cough or dyspnea, CxR showed consolidation in the left lung base and pneumonia could explain poor PO intake causing dehydration with hypernatremia and altered MS. - Cultures show no growth so far and Influenza was negative. - Legionella and pneumococcal Ag are negative. - Continue Ceftriaxone and Zithromax. (4) Urinary retention Comment: - Place Ortiz catheter. 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 - Patient has known pleomoprhic adenoma and admitting provider discussed findings with ENT (Dr. Cesar) - patient was supposed to f/u in [facility], but didn 't. - D/w SO - plan is to take patient to [place] for evaluation. He actually had an appt this week and missed it because he was admitted. (6) Diabetes Comment: - Continue Lispro SS. (7) HTN (hypertension) Comment: - BP is on the softer side - continue Metoprolol with holding parameters. (8) Pressure ulcer Comment: - Right buttock pressure ulcer, present on admission, unstageable at this time. - Wound care input appreciated. (9) DVT prophylaxis Comment: - SQ heparin. (10) Physical deconditioning Comment: - PT input appreciated - patient may require Scott lift for transfers now. - As per SO, he was able to transfer with her assistance, but spent most of this time in a chair. She is not interested in placement for rehab as she didn' t feel he made any progress at [facility]. She is willing to work with PT and learn how to use a Scott. Status and Disposition: Inpatient.
[2016-12-10] MEDS: Heparin VIAL(*) 5000 UNITS/ML VIAL (FIVE THOUSAND) SUBCUT SCH ×4 (05:38→20:42)
[2016-12-10] MEDS: Insulin LISPRO* 1 UNITS UNIT SUBCUT SCH ×3 (07:43→16:32)
[2016-12-10] MEDS: Metoprolol Tartrate TAB* 50 mg PO SCH ×2 (08:26→20:42)
[2016-12-10] MEDS: Aspirin Low Dose CHEW TAB* 81 MG PO SCH (08:26)
[2016-12-10] MEDS: cefTRIAXone VIAL(*) 1,000 MG in NS 0.9% 50 ML* 50 ML IVPB SCH (11:32)
[2016-12-10] MEDS: Azithromycin IV(*) 500 MG in NS 0.9% 250 ML* 250 ML IVPB SCH (12:07)
--- NOTE | 2016-12-10 15:39 | PN ---
Subjective Date of Service: 12/10/16 Interval History: HOSPITALIST PROGRESS NOTE Patient seen and examined at bedside. Offers no complaints at this time. As per SO, very close to his baseline. Family History: Unchanged from Admission Social History: Unchanged from Admission Past Medical History: Unchanged from Admission Objective Active Medications: Acetaminophen (Tylenol Tab*) 650 mg PO Q4H PRN PRN Reason: FEVER/PAIN Last Admin: 12/08/16 17:25 Dose: 650 mg Aspirin (Aspirin Low Dose Tab*) 81 mg PO DAILY [facility] Last Admin: 12/10/16 08:26 Dose: 81 mg Azithromycin (Zithromax Tab*) 250 mg PO DAILY [facility] Stop: 12/11/16 09:01 Dextrose (D50w Syringe 50 Ml*) 12.5 gm IV PUSH .FOR FS < 60 - SS PRN PRN Reason: FS < 60 Heparin Sodium (Porcine) (Heparin Vial(*)) 5,000 units SUBCUT Q8HR [facility] Last Admin: 12/10/16 14:22 Dose: 5,000 units Ceftriaxone Sodium 1,000 mg/ (Sodium Chloride) 50 mls @ 200 mls/hr IVPB Q24H [facility] Last Admin: 12/10/16 11:32 Dose: 200 mls/hr Insulin Human Lispro (Humalog*) 0 units SUBCUT AC [facility] PRN Reason: Protocol Last Admin: 12/10/16 12:07 Dose: 1 units Metoprolol Tartrate (Lopressor Tab*) 50 mg PO BID [facility] Last Admin: 12/10/16 08:26 Dose: 50 mg Ondansetron HCl (Zofran Inj*) 4 mg IV Q6H PRN PRN Reason: NAUSEA Vital Signs 12/10/16 12/10/16 08:07 14:16 Temperature 98.7 F Pulse Rate 81 Respiratory 24 Rate Blood Pressure 120/75 (mmHg) O2 Sat by Pulse 98 100 Oximetry Oxygen Devices in Use Now: Nasal Cannula Appearance: Elderly male lying in bed in NAD. Eyes: No Scleral Icterus, - - Gaze deivation to the left, unchanged from before Ears/Nose/Mouth/Throat: Mucous Membranes Moist Neck: Trachea Midline Respiratory: Symmetrical Chest Expansion and Respiratory Effort, Clear to Auscultation Cardiovascular: RRR - Normal S1 and S2 Abdominal: NL Sounds; No Tenderness; No Distention Neurological: - - Alert and awake Lines/Tubes/Other Access: Clean, Dry and Intact Peripheral IV Nutrition: Taking PO's Result Diagrams: 12/08/16 05:12 12/09/16 05:15 Assess/Plan/Problems-Billing Assessment: Mr. Ramirez is a 71yo M with PMH of type 2 DM, HTN, HLD, CVA, left maxilla mass who presented to ED with weakness and altered MS, found to be dehydrated and hypernatremic. - Patient Problems (1) Altered mental status Comment: - He is more awake today. - Suspect secondary to dehydration and hypernatremia. - Talked to his SO - she thinks his MS is close to his baseline. (2) Hypernatremia Comment: - Likely secondary to poor PO intake associated with pneumonia. - Sodium has normalized and he has good PO intake. (3) Pneumonia Comment: - Although he has no cough or dyspnea, CxR showed consolidation in the left lung base and pneumonia could explain poor PO intake causing dehydration with hypernatremia and altered MS. - Cultures show no growth so far and Influenza was negative. - Legionella and pneumococcal Ag are negative. - Continue Ceftriaxone and Zithromax. (4) Urinary retention Comment: - Will d/c Ortiz catheter and try spontaneous void. 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 - Patient has known pleomoprhic adenoma and admitting provider discussed findings with ENT (Dr. Cesar) - patient was supposed to f/u in [facility], but didn 't. - D/w SO - plan is to take patient to [place] for evaluation. He actually had an appt this week and missed it because he was admitted. (6) Diabetes Comment: - Continue Lispro SS. (7) HTN (hypertension) Comment: - BP is on the softer side - continue Metoprolol with holding parameters. (8) Pressure ulcer Comment: - Right buttock pressure ulcer, present on admission, unstageable at this time. - Wound care input appreciated. (9) DVT prophylaxis Comment: - SQ heparin. (10) Physical deconditioning Comment: - PT input appreciated - patient may require Scott lift for transfers now. - As per SO, he was able to transfer with her assistance, but spent most of this time in a chair. She is not interested in placement for rehab as she didn' t feel he made any progress at [facility]. She is willing to work with PT and learn how to use a Scott. Status and Disposition: Inpatient.
[2016-12-11] MEDS: Heparin VIAL(*) 5000 UNITS/ML VIAL (FIVE THOUSAND) SUBCUT SCH ×3 (05:36→21:09)
[2016-12-11] MEDS: Insulin LISPRO* 1 UNITS UNIT SUBCUT SCH ×3 (08:45→17:22)
[2016-12-11] MEDS: Aspirin Low Dose CHEW TAB* 81 MG PO SCH (08:52)
[2016-12-11] MEDS: Metoprolol Tartrate TAB* 50 mg PO SCH ×2 (08:52→21:09)
[2016-12-11] MEDS ORDERED: Azithromycin TAB* 250 MG PO ONE (09:00)
[2016-12-11] MEDS: cefTRIAXone VIAL(*) 1,000 MG in NS 0.9% 50 ML* 50 ML IVPB SCH (12:03)
--- NOTE | 2016-12-11 14:17 | PN ---
Subjective Date of Service: 12/11/16 Interval History: pt is not very interactive. Able to answer "I don't know " when asked where his is. Family History: Unchanged from Admission Social History: Unchanged from Admission Past Medical History: Unchanged from Admission Objective Active Medications: Acetaminophen (Tylenol Tab*) 650 mg PO Q4H PRN PRN Reason: FEVER/PAIN Last Admin: 12/08/16 17:25 Dose: 650 mg Aspirin (Aspirin Low Dose Tab*) 81 mg PO DAILY [facility] Last Admin: 12/11/16 08:52 Dose: 81 mg Dextrose (D50w Syringe 50 Ml*) 12.5 gm IV PUSH .FOR FS < 60 - SS PRN PRN Reason: FS < 60 Heparin Sodium (Porcine) (Heparin Vial(*)) 5,000 units SUBCUT Q8HR [facility] Last Admin: 12/11/16 05:36 Dose: 5,000 units Ceftriaxone Sodium 1,000 mg/ (Sodium Chloride) 50 mls @ 200 mls/hr IVPB Q24H [facility] Last Admin: 12/11/16 12:03 Dose: 200 mls/hr Insulin Human Lispro (Humalog*) 0 units SUBCUT AC [facility] PRN Reason: Protocol Last Admin: 12/11/16 12:02 Dose: 2 unit Metoprolol Tartrate (Lopressor Tab*) 50 mg PO BID [facility] Last Admin: 12/11/16 08:52 Dose: 50 mg Ondansetron HCl (Zofran Inj*) 4 mg IV Q6H PRN PRN Reason: NAUSEA Vital Signs 12/10/16 12/10/16 12/10/16 14:16 20:00 20:19 Temperature 98.7 F Pulse Rate 81 100 Respiratory 24 19 Rate Blood Pressure 120/75 153/97 (mmHg) O2 Sat by Pulse 100 Oximetry 12/11/16 12/11/16 12/11/16 00:11 04:38 07:46 Temperature 99.0 F Pulse Rate 77 Respiratory 16 20 Rate Blood Pressure 128/83 (mmHg) O2 Sat by Pulse 100 94 Oximetry 12/11/16 07:51 Temperature 97.0 F Pulse Rate 93 Respiratory 16 Rate Blood Pressure 130/83 (mmHg) O2 Sat by Pulse 100 Oximetry Oxygen Devices in Use Now: None Appearance: 71 yo M in nAd, disoriented, limited verbalization, poor eye contact Eyes: No Scleral Icterus, PERRLA Ears/Nose/Mouth/Throat: NL Teeth, Lips, Gums, Mucous Membranes Moist Neck: NL Appearance and Movements; NL JVP, Trachea Midline Respiratory: Symmetrical Chest Expansion and Respiratory Effort, Clear to Auscultation Cardiovascular: NL Sounds; No Murmurs; No JVD, RRR Abdominal: NL Sounds; No Tenderness; No Distention Lymphatic: No Cervical Adenopathy Extremities: No Edema - R buttock/sacral decub stage 3 healing at 5 x 1 cm, left hip ruptured blister with exposed subcu tissue at 2 cm in diam -stage 2 decub, No Clubbing, Cyanosis Neurological: - - generalized weakness, minimally verbal Result Diagrams: 12/08/16 05:12 12/09/16 05:15 Additional Lab and Data: Lab Results 12/07/16 12/07/16 12/07/16 Range/Units 08:45 08:45 08:45 WBC 11.8 H (3.5-10.8) 10^3/ul RBC 4.91 (4.0-5.4) 10^6/ul Hgb 14.0 (14.0-18.0) g/dl Hct 43 (42-52) % MCV 88 (80-94) fL MCH 29 (27-31) pg MCHC 32 (31-36) g/dl RDW 16 H (10.5-15) % Plt Count 267 (150-450) 10^3/ul MPV 9 (7.4-10.4) um3 Neut % (Auto) 86.3 H (38-83) % Lymph % (Auto) 6.1 L (25-47) % [place] % (Auto) 7.1 (1-9) % Eos % (Auto) 0.1 (0-6) % Baso % (Auto) 0.4 (0-2) % Absolute Neuts (auto) 10.2 H (1.5-7.7) 10^3/ul Absolute Lymphs (auto) 0.7 L (1.0-4.8) 10^3/ul Absolute Monos (auto) 0.8 (0-0.8) 10^3/ul Absolute Eos (auto) 0 (0-0.6) 10^3/ul Absolute Basos (auto) 0 (0-0.2) 10^3/ul Absolute Nucleated RBC 0 10^3/ul Nucleated RBC % 0 INR (Anticoag Therapy) 1.18 H (0.89-1.11) APTT 29.5 (26.0-36.3) seconds Sodium 153 H (133-145) mmol/L Potassium 3.7 (3.5-5.0) mmol/L Chloride 121 H (101-111) mmol/L Carbon Dioxide 25 (22-32) mmol/L Anion Gap 7 (2-11) mmol/L BUN 41 H (6-24) mg/dL Creatinine 1.14 (0.67-1.17) mg/dL Est GFR ( Amer) 81.2 (>60) Est GFR (Non-Af Amer) 63.1 (>60) BUN/Creatinine Ratio 36.0 H (8-20) Glucose 166 H (70-100) mg/dL Lactic Acid (0.5-2.0) mmol/L Calcium 10.5 H (8.6-10.3) mg/dL Magnesium 2.5 (1.9-2.7) mg/dL Total Bilirubin 0.70 (0.2-1.0) mg/dL AST 78 H (13-39) U/L ALT 171 H (7-52) U/L Alkaline Phosphatase 68 (34-104) U/L Ammonia Total Creatine Kinase 606 H (10-223) U/L CK-MB (CK-2) 2.1 (0.6-6.3) ng/mL Troponin I 0.03 (<0.04) ng/mL C-Reactive Protein 15.70 H (< 5.00) mg/L B-Natriuretic Peptide ( - 100) pg/mL Total Protein 7.8 (6.4-8.9) g/dL Albumin 3.6 (3.2-5.2) g/dL Globulin 4.2 H (2-4) g/dL Albumin/Globulin Ratio 0.9 L (1-3) Lipase < 10 L (11.0-82.0) U/L TSH 0.76 (0.34-5.60) mcIU/mL Acetaminophen < 15 mcg/mL Serum Alcohol < 10 (<10) mg/dL 12/07/16 12/07/16 Range/Units 08:45 08:45 WBC (3.5-10.8) 10^3/ul RBC (4.0-5.4) 10^6/ul Hgb (14.0-18.0) g/dl Hct (42-52) % MCV (80-94) fL MCH (27-31) pg MCHC (31-36) g/dl RDW (10.5-15) % Plt Count (150-450) 10^3/ul MPV (7.4-10.4) um3 Neut % (Auto) (38-83) % Lymph % (Auto) (25-47) % [place] % (Auto) (1-9) % Eos % (Auto) (0-6) % Baso % (Auto) (0-2) % Absolute Neuts (auto) (1.5-7.7) 10^3/ul Absolute Lymphs (auto) (1.0-4.8) 10^3/ul Absolute Monos (auto) (0-0.8) 10^3/ul Absolute Eos (auto) (0-0.6) 10^3/ul Absolute Basos (auto) (0-0.2) 10^3/ul Absolute Nucleated RBC 10^3/ul Nucleated RBC % INR (Anticoag Therapy) (0.89-1.11) APTT (26.0-36.3) seconds Sodium (133-145) mmol/L Potassium (3.5-5.0) mmol/L Chloride (101-111) mmol/L Carbon Dioxide (22-32) mmol/L Anion Gap (2-11) mmol/L BUN (6-24) mg/dL Creatinine (0.67-1.17) mg/dL Est GFR ( Amer) (>60) Est GFR (Non-Af Amer) (>60) BUN/Creatinine Ratio (8-20) Glucose (70-100) mg/dL Lactic Acid 1.7 (0.5-2.0) mmol/L Calcium (8.6-10.3) mg/dL Magnesium (1.9-2.7) mg/dL Total Bilirubin (0.2-1.0) mg/dL AST (13-39) U/L ALT (7-52) U/L Alkaline Phosphatase (34-104) U/L Ammonia Pending Total Creatine Kinase (10-223) U/L CK-MB (CK-2) (0.6-6.3) ng/mL Troponin I (<0.04) ng/mL C-Reactive Protein (< 5.00) mg/L B-Natriuretic Peptide 39 ( - 100) pg/mL Total Protein (6.4-8.9) g/dL Albumin (3.2-5.2) g/dL Globulin (2-4) g/dL Albumin/Globulin Ratio (1-3) Lipase (11.0-82.0) U/L TSH (0.34-5.60) mcIU/mL Acetaminophen mcg/mL Serum Alcohol (<10) mg/dL Microbiology and Other Data: Microbiology 12/07/16 14:40 Aerobic Blood Culture - Preliminary Blood Venous No Growth Day 1 Anaerobic Blood Culture - Preliminary No Growth Day 1 12/07/16 14:40 Aerobic Blood Culture - Preliminary Blood Venous No Growth Day 1 Anaerobic Blood Culture - Preliminary No Growth Day 1 12/07/16 12:59 Influenza Types A,B Antigen ([facility]ANCE) - Final Nasal Specimen received for Influenza A/B Molecular testing Assess/Plan/Problems-Billing Assessment: Mr. Ramirez is a 71yo M with PMH of type 2 DM, HTN, HLD, CVA, left maxilla mass who presented to ED with weakness and altered MS, found to be dehydrated and hypernatremic. - Patient Problems (1) Altered mental status Comment: - Suspect secondary to dehydration and hypernatremia. -disoriented, not very interactive - according to SO - she thinks his MS is close to his baseline. (2) Hypernatremia Comment: - Likely secondary to poor PO intake associated with pneumonia. - Sodium has normalized (3) Pneumonia Comment: - Although he has no cough or dyspnea, CxR showed consolidation in the left lung base and pneumonia could explain poor PO intake causing dehydration with hypernatremia and altered MS. - Cultures show no growth so far and Influenza was negative. - Legionella and pneumococcal Ag are negative. - Continue Ceftriaxone and Zithromax. 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 - Patient has known pleomoprhic adenoma and admitting provider discussed findings with ENT (Dr. Cesar) - patient was supposed to f/u in [facility], but didn 't. - D/w SO - plan is to take patient to [place] for evaluation. He actually had an appt this week and missed it because he was admitted. (6) Pressure ulcer Comment: - Right buttock pressure ulcer, present on admission stage 3 - Wound care input appreciated cont Mepilex dressings. (7) Diabetes Comment: - Continue Lispro SS. (8) HTN (hypertension) Comment: - controlled, continue Metoprolol with holding parameters. (9) DVT prophylaxis Comment: - SQ heparin. (10) Physical deconditioning Comment: - PT input appreciated - patient may require Scott lift for transfers now. - As per SO, he was able to transfer with her assistance, but spent most of this time in a chair. She is not interested in placement for rehab as she didn' t feel he made any progress at [facility]. Plan for SO to learn how to use a Scott today. Status and Disposition: Inpatient.
[2016-12-12] MEDS: Heparin VIAL(*) 5000 UNITS/ML VIAL (FIVE THOUSAND) SUBCUT SCH ×3 (05:41→22:26)
[2016-12-12 06:50] LABS: BUN/Creatinine Ratio 18.4 (8-20); Calcium 9.4 mg/dL (8.6-10.3); EGFR African American 129.7 (>60); EGFR Non-African American 100.8 (>60)
[2016-12-12 07:08] LABS: Potassium 4.2 mmol/L (3.5-5.0)
[2016-12-12] MEDS: Aspirin Low Dose CHEW TAB* 81 MG PO SCH (09:53)
[2016-12-12] MEDS: Metoprolol Tartrate TAB* 50 mg PO SCH ×2 (09:53→22:26)
[2016-12-12] MEDS: Insulin LISPRO* 1 UNITS UNIT SUBCUT SCH ×3 (09:54→17:18)
[2016-12-12] MEDS: cefTRIAXone VIAL(*) 1,000 MG in NS 0.9% 50 ML* 50 ML IVPB SCH (12:02)
--- NOTE | 2016-12-12 15:28 | PN ---
Subjective Date of Service: 12/12/16 Interval History: HOSPITALIST PROGRESS NOTE Patient seen and examined at bedside. He offers no complaints. Family History: Unchanged from Admission Social History: Unchanged from Admission Past Medical History: Unchanged from Admission Objective Active Medications: Acetaminophen (Tylenol Tab*) 650 mg PO Q4H PRN PRN Reason: FEVER/PAIN Last Admin: 12/08/16 17:25 Dose: 650 mg Aspirin (Aspirin Low Dose Tab*) 81 mg PO DAILY [facility] Last Admin: 12/12/16 09:53 Dose: 81 mg Dextrose (D50w Syringe 50 Ml*) 12.5 gm IV PUSH .FOR FS < 60 - SS PRN PRN Reason: FS < 60 Heparin Sodium (Porcine) (Heparin Vial(*)) 5,000 units SUBCUT Q8HR [facility] Last Admin: 12/12/16 14:20 Dose: 5,000 units Ceftriaxone Sodium 1,000 mg/ (Sodium Chloride) 50 mls @ 200 mls/hr IVPB Q24H [facility] Last Admin: 12/12/16 12:02 Dose: 200 mls/hr Insulin Human Lispro (Humalog*) 0 units SUBCUT AC [facility] PRN Reason: Protocol Last Admin: 12/12/16 12:02 Dose: 2 unit Metoprolol Tartrate (Lopressor Tab*) 50 mg PO BID [facility] Last Admin: 12/12/16 09:53 Dose: 50 mg Ondansetron HCl (Zofran Inj*) 4 mg IV Q6H PRN PRN Reason: NAUSEA Vital Signs 12/12/16 12/12/16 08:00 09:07 Temperature 98.8 F Pulse Rate 102 Respiratory 18 18 Rate Blood Pressure 154/96 (mmHg) O2 Sat by Pulse 100 Oximetry Oxygen Devices in Use Now: None Appearance: Elderly male lying in bed in [employer]. Eyes: No Scleral Icterus Ears/Nose/Mouth/Throat: Mucous Membranes Moist Neck: Trachea Midline Respiratory: Symmetrical Chest Expansion and Respiratory Effort, Clear to Auscultation Cardiovascular: RRR - Normal S1 and S2 Abdominal: NL Sounds; No Tenderness; No Distention Skin: - - Unstageable pressure ulcer on the right buttock and 1cm skin tear on the left Neurological: - - AAOx1 (self), Lines/Tubes/Other Access: Clean, Dry and Intact Peripheral IV Nutrition: Taking PO's Result Diagrams: 12/08/16 05:12 12/12/16 06:14 Assess/Plan/Problems-Billing Assessment: Mr. Ramirez is a 71yo M with PMH of type 2 DM, HTN, HLD, CVA, left maxilla mass who presented to ED with weakness and altered MS, found to be dehydrated and hypernatremic. - Patient Problems (1) Altered mental status Comment: - Suspect secondary to dehydration and hypernatremia. - According to SO his MS is close to his baseline. (2) Hypernatremia Comment: - Likely secondary to poor PO intake associated with pneumonia. - Sodium has normalized. (3) Pneumonia Comment: - Although he has no cough or dyspnea, CxR showed consolidation in the left lung base and pneumonia could explain poor PO intake causing dehydration with hypernatremia and altered MS. - Cultures show no growth so far and Influenza was negative. - Legionella and pneumococcal Ag are negative. - Completed Zithromax and change Ceftriaxone to PO. (4) Urinary retention Comment: - Failed spontaneous void on 12/10/16. - Continue Ortiz. 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 - Patient has known pleomoprhic adenoma and admitting provider discussed findings with ENT (Dr. Cesar) - patient was supposed to f/u in [facility], but didn 't. - D/w SO - plan is to take patient to [place] for evaluation. He actually had an appt this week and missed it because he was admitted. (6) Diabetes Comment: - Continue Lispro SS. (7) HTN (hypertension) Comment: - controlled, continue Metoprolol with holding parameters. (8) Pressure ulcer Comment: - Right buttock pressure ulcer unstageable. - Wound care input appreciated cont Mepilex dressings. (9) DVT prophylaxis Comment: - SQ heparin. (10) Physical deconditioning Comment: - PT input appreciated - patient may require Scott lift for transfers now. - As per SO, he was able to transfer with her assistance, but spent most of this time in a chair. She is not interested in placement for rehab as she didn' t feel he made any progress at [facility]. SO has learned how to use a Scott. - Anticipate d/c 12/14/16 when all materials will be delivered to her home. Status and Disposition: Inpatient.
[2016-12-12] MEDS: ceFUROXime TAB(*) 250 MG PO SCH ×2 (17:18→22:26)
[2016-12-13] MEDS: Heparin VIAL(*) 5000 UNITS/ML VIAL (FIVE THOUSAND) SUBCUT SCH ×3 (06:37→20:56)
[2016-12-13] MEDS: Insulin LISPRO* 1 UNITS UNIT SUBCUT SCH ×3 (07:25→16:56)
[2016-12-13] MEDS: Aspirin Low Dose CHEW TAB* 81 MG PO SCH (07:30)
[2016-12-13] MEDS: Metoprolol Tartrate TAB* 50 mg PO SCH ×2 (07:30→20:55)
[2016-12-13] MEDS: ceFUROXime TAB(*) 250 MG PO SCH ×2 (07:30→20:56)
--- NOTE | 2016-12-13 14:55 | PN ---
Subjective Date of Service: 12/13/16 Interval History: HOSPITALIST PROGRESS NOTE Patient seen and examined at bedside. He offers no complaints. Family History: Unchanged from Admission Social History: Unchanged from Admission Past Medical History: Unchanged from Admission Objective Active Medications: Acetaminophen (Tylenol Tab*) 650 mg PO Q4H PRN PRN Reason: FEVER/PAIN Last Admin: 12/08/16 17:25 Dose: 650 mg Aspirin (Aspirin Low Dose Tab*) 81 mg PO DAILY [facility] Last Admin: 12/13/16 07:30 Dose: 81 mg Cefuroxime Axetil (Ceftin Tab(*)) 250 mg PO BID [facility] Last Admin: 12/13/16 07:30 Dose: 250 mg Dextrose (D50w Syringe 50 Ml*) 12.5 gm IV PUSH .FOR FS < 60 - SS PRN PRN Reason: FS < 60 Heparin Sodium (Porcine) (Heparin Vial(*)) 5,000 units SUBCUT Q8HR [facility] Last Admin: 12/13/16 12:06 Dose: 5,000 units Insulin Human Lispro (Humalog*) 0 units SUBCUT AC [facility] PRN Reason: Protocol Last Admin: 12/13/16 12:06 Dose: 1 unit Metoprolol Tartrate (Lopressor Tab*) 50 mg PO BID [facility] Last Admin: 12/13/16 07:30 Dose: 50 mg Ondansetron HCl (Zofran Inj*) 4 mg IV Q6H PRN PRN Reason: NAUSEA Vital Signs 12/12/16 12/13/16 12/13/16 23:48 09:07 09:27 Temperature 98.5 F Pulse Rate 92 66 Respiratory 16 20 20 Rate Blood Pressure 125/66 (mmHg) O2 Sat by Pulse 99 100 Oximetry Oxygen Devices in Use Now: None Appearance: Elderly male lying in bed in [employer]. Eyes: No Scleral Icterus Ears/Nose/Mouth/Throat: Mucous Membranes Moist Neck: Trachea Midline Respiratory: Symmetrical Chest Expansion and Respiratory Effort, Clear to Auscultation Cardiovascular: RRR - Normal S1 and S2 Abdominal: NL Sounds; No Tenderness; No Distention Neurological: - - AAOx1 (self), Lines/Tubes/Other Access: Clean, Dry and Intact Peripheral IV Nutrition: Taking PO's Result Diagrams: 12/08/16 05:12 12/12/16 06:14 Assess/Plan/Problems-Billing Assessment: Mr. Ramirez is a 71yo M with PMH of type 2 DM, HTN, HLD, CVA, left maxilla mass who presented to ED with weakness and altered MS, found to be dehydrated and hypernatremic. - Patient Problems (1) Altered mental status Comment: - Suspect secondary to dehydration and hypernatremia. - Back to baseline. (2) Hypernatremia Comment: - Likely secondary to poor PO intake associated with pneumonia. - Sodium has normalized. (3) Pneumonia Comment: - Although he has no cough or dyspnea, CxR showed consolidation in the left lung base and pneumonia could explain poor PO intake causing dehydration with hypernatremia and altered MS. - Cultures show no growth so far and Influenza was negative. - Legionella and pneumococcal Ag are negative. - Completed Zithromax and change Ceftriaxone to PO. (4) Urinary retention Comment: - Failed spontaneous void on 12/10/16. - Continue Ortiz. - Check renal and bladder US as it will be very difficult for him to have it as outpatient. 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 - Patient has known pleomoprhic adenoma and admitting provider discussed findings with ENT (Dr. Cesar) - [facility] but [facility] '[facility]. - D/w SO - plan is to take patient to [place] for evaluation. He actually had an appt this week and missed it because he was admitted. (6) Diabetes Comment: - Continue Lispro SS. (7) HTN (hypertension) Comment: - controlled, continue Metoprolol with holding parameters. (8) Pressure ulcer Comment: - Right buttock pressure ulcer unstageable. - Wound care input appreciated cont Mepilex dressings. (9) DVT prophylaxis Comment: - SQ heparin. (10) Physical deconditioning Comment: - PT input appreciated - patient may require Scott lift for transfers now. - As per SO, he was able to transfer with her assistance, but spent most of this time in a chair. She is not interested in placement for rehab as she didn' t feel he made any progress at [facility]. SO has learned how to use a Scott and take care of Ortiz. - Anticipate d/c 12/14/16 when all materials will be delivered to her home. Status and Disposition: Inpatient.
[2016-12-14] MEDS: Heparin VIAL(*) 5000 UNITS/ML VIAL (FIVE THOUSAND) SUBCUT SCH ×2 (05:52→13:17)
[2016-12-14] MEDS: Metoprolol Tartrate TAB* 50 mg PO SCH (08:13)
[2016-12-14] MEDS: Aspirin Low Dose CHEW TAB* 81 MG PO SCH (08:13)
[2016-12-14] MEDS: Insulin LISPRO* 1 UNITS UNIT SUBCUT SCH ×3 (08:13→17:14)
[2016-12-14] MEDS: ceFUROXime TAB(*) 250 MG PO SCH (08:13)
--- NOTE | 2016-12-14 10:34 | RAD ---
INDICATION: Urinary retention COMPARISON: None TECHNIQUE: Real-time ultrasound examination of the left kidney and urinary bladder including grayscale and Doppler color flow analysis. FINDINGS: The left kidney is normal in size and echogenicity. There are no hypervascular renal masses. There are no renal calculi or hydronephrosis identified. A benign-appearing 1 cm cyst is noted at the mid-level left kidney. The narayanan of the urinary bladder are smooth. A urinary Ortiz balloon catheter is noted in the lumen of the bladder. Normal ureteral jets are identified bilaterally. IMPRESSION: Normal ultrasound of the left kidney and urinary bladder.
--- NOTE | 2016-12-14 15:19 | RAD ---
Indication: Urinary retention, location of left kidney. CT of the abdomen and pelvis was performed without oral or IV contrast administration. Coronal and sagittal reconstructed images were obtained. Lung bases demonstrate some scarring and atelectasis in left base. Heart demonstrates no pericardial effusion. Liver is normal in size. There is a low density lesion in the dome of the right lobe of liver measuring up to 9 mm. This is of uncertain etiology. Correlation with ultrasound is helpful. No other focal lesions are identified. No intrahepatic ductal dilatation is noted. The gallbladder demonstrates no calcified gallstones. No pericholecystic fluid or wall thickening is identified. The spleen is normal in size. The pancreas demonstrates no mass or pancreatic duct dilatation. The common duct is not dilated. The gallbladder demonstrates no calcified gallstones. No pericholecystic fluid or wall thickening is identified. No adrenal masses are noted. Bilateral adrenal hyperplasia is noted. The kidneys demonstrates no hydronephrosis. Atherosclerotic aorta is noted. No retroperitoneal lymphadenopathy is noted. CT of the pelvis demonstrates urinary bladder to be partially collapsed. Diffuse wall thickening with a catheter is in place. No other masses or fluid collections are identified. The left kidney is normal in location. There is bilateral adrenal hyperplasia is noted. IMPRESSION: There is a low density lesion in the dome of the right lobe of liver. This is of uncertain etiology and may represent a hemangioma. Correlation with ultrasound may BE helpful. The left kidney is normal in size and location. It may have been obscured by overlying gas. Atherosclerotic aorta is noted.
[2016-12-14 16:29] VITALS: BP 138/89
--- NOTE | 2016-12-15 12:14 | DS ---
DISCHARGE SUMMARY: DATE OF ADMISSION: 12/07/16 DATE OF DISCHARGE: 12/14/16 PRIMARY CARE PROVIDER: Dr. Can. DISCHARGE DIAGNOSES: 1. Altered mental status secondary to dehydration and severe hypernatremia. 2. Community-acquired pneumonia. 3. Urinary retention, likely secondary to neurogenic bladder. 4. Unstageable right buttock pressure ulcer, present on admission. 5. Mild leukocytosis. 6. Transaminitis. SECONDARY DIAGNOSES: 1. Type 2 diabetes. 2. Hypertension. 3. History of hyperlipidemia. 4. History of cerebrovascular accident. 5. Left maxillary sinus pleomorphic adenoma. MEDICATION LIST: 1. Metformin 500 mg p.o. b.i.d. 2. Potassium chloride 10 mEq p.o. daily. 3. Metoprolol tartrate 50 mg p.o. b.i.d. 4. Losartan 50 mg p.o. daily. 5. MiraLAX 17 g p.o. b.i.d. 6. Acetaminophen 650 mg p.o. q.4 hours p.r.n. pain or fever. 7. Cefuroxime 250 mg p.o. b.i.d. for 2 more days. HOSPITAL COURSE: Mr. Ramirez is a 71-year-old male with a past medical history as stated above who was brought into the emergency room on 12/17/16 by his significant other with complaints of altered mental status. She states that he was not acting himself. He was not really eating or drinking and also had a moist cough. For more details about his presentation, I refer you to his history and physical. In the emergency room, his chest x-ray showed a consolidation at the left lung base concerning for potential pneumonia. CT of the brain without contrast showed no evidence for gross acute infarct, mass effect or hemorrhage. There was a mass in the left maxillary sinus that was partially visualized on this study. A maxillofacial CT was performed and it showed interval growth of the large mass lesion centered to the left maxillary sinus with surrounding osteolysis of the maxillary sinus narayanan and base of the maxilla. Given the aggressive feature, the interval growth tissue sampling suggested to assess for malignancy. This was compared to his prior CT from March 2016. Right femur, hip and knee x-ray showed no radiographic evidence of right hip fracture, negative for diaphyseal fracture of the right femur or fracture above the knee, mild hip and knee osteoarthritis and peripheral vascular disease. The patient was also found to be dehydrated with severe hypernatremia with sodium of 155. Impression was that his altered mental status was secondary to dehydration, severe hypernatremia and pneumonia in the setting of poor oral intake. The patient was admitted to the medical floor, he was started on antibiotics and IV hydration. One bottle of his blood cultures grew Corynebacterium, likely a contaminant. Urine showed no growth. Legionella and pneumococcal antigens were negative as well as influenza. With hydration and antibiotics, the patient had significant improvement and was felt to be close to his baseline. After his prior discharge to [facility], the patient had been discharged to [facility] for rehabilitation but his significant other was under the impression that he made no progress, so she took him home. She states that at baseline he was able to transfer with her assist from bed towards chair where he would spend most of the day. She was not sure how he developed the pressure ulcer, but she was aware that it was present. The patient was found to be deconditioned and at this point he required a Scott lift for transfer. His significant other was very clear that she would not pursue SNF placement for rehab and her intention was to take him home with services. She received teaching about the Scott lift and she is able to use it. They received a referral for visiting nurses and hopefully he will be able to have PT and OT at home. She also received education regarding his pressure ulcer and a pressure relief mattress was already delivered to her home together with Scott. Although his significant other appears to be competent to care for him, I believe this is going to be a difficult situation and the patient was referred to the adult protective services to make sure that his condition at home does not decline. On admission, the patient was found to have urinary retention. He is almost nonverbal and it was very difficult to know from his significant other if he was able to urinate at home or not. He had a Ortiz catheter placed and failed a trial of spontaneous void. As it would be really difficult to have an urological workup as outpatient, we decided to do an abdomen and bladder ultrasound in the hospital, and his right kidney was visualized, but the left kidney was not, although bilateral normal ureteral jets were seen. For that reason, a CT of the abdomen and pelvis was performed without contrast and it showed a low density lesion in the dome of the right lobe of the liver of uncertain etiology but it may represent a hemangioma. Correlation with ultrasound may be helpful. The left kidney was seen in normal size and location on the CT, but it may have been obscured by overlying gas on the ultrasound. His prostate was not enlarged and I discussed the case and the CT with Urology (Dr. Aparicio). He agrees that with this patient's condition, he would be a poor candidate for a cystoscopy, so his recommendation at this time is to continue chronic Ortiz that will be changed by visiting nurses. He agrees that the most likely etiology of his urinary retention is neurogenic bladder that could be associated with his diabetes or with his neurological issues. On admission, the patient was noted to have transaminitis and this was felt to be secondary to his infection. As reported, the CT showed a liver lesion suggestive of hemangioma. His LFTs should be followed as outpatient but if they do not trend down further, a liver workup should be performed. The patient is medically stable for discharge at this time and he will follow up with Dr. Can on 12/17/16 at 11:30 a.m. I also discussed the maxillary findings with his significant other. She is aware of his diagnosis and actually he had an appointment scheduled at [place] for further evaluation on the day of admission. She understands that the patient should follow up at [place] as soon as possible, as the tumor continues to grow. She is not interested in palliative care at this time and her intention is to pursue aggressive therapy at [facility]. PHYSICAL EXAMINATION: Vital Signs: Temperature 98.8, heart rate is 96, respiratory rate is 18, oxygen saturation is 100% on room air, blood pressure is 138/89. General: The patient is an elderly male, lying in bed, in no acute distress. CVS: Normal S1 and S2. Regular rate and rhythm. Chest: Breath sounds bilaterally with no added sounds, decreased in the left base. Abdomen: Soft. Bowel sounds present. Extremities: No edema. Neuro: The patient is alert and awake, oriented to self only with left hemiparesis. DIET: Regular diet to try and encourage better oral intake at home. He did well with a normal consistency and thin liquids with no episodes of choking or cough, I believe aspiration was not an issue. ACTIVITY: As tolerated. DISPOSITION: To home with services including VNS and APS. STATUS DURING THE HOSPITAL: Inpatient. Please keep in mind that this is a summarized version of this patient's prolonged and complex hospital stay. If you need more information, please feel free to call me at [phone] or please obtain the full medical records. TIME SPENT: Approximately 50 minutes was spent to complete this discharge. CC: Dr. Can* [id number]/CPS #: [id number]
== END 2016-12-14 18:25 | disposition home health service (06) | DRG 640 ==
LOC: ED 08:31 → MEDTELE 09:42 → MED 12-11 23:17
PROVIDERS: ADMIT Internal Medicine; ATTEND Internal Medicine
PROC: 0T9B70Z Drainage of Bladder with Drainage Device, Via Natural or Artificial Opening (ICD-10-PCS; principal; 2016-12-09)
DX: E87.0 Hyperosmolality and hypernatremia (principal); J18.9 Pneumonia, unspecified organism; E86.0 Dehydration; L89.310 Pressure ulcer of right buttock, unstageable; E11.51 Type 2 diabetes mellitus with diabetic peripheral angiopathy without gangrene; E11.69 Type 2 diabetes mellitus with other specified complication; I69.354 Hemiplegia and hemiparesis following cerebral infarction affecting left non-dominant side; D72.829 Elevated white blood cell count, unspecified; I10 Essential (primary) hypertension; N31.9 Neuromuscular dysfunction of bladder, unspecified; E78.5 Hyperlipidemia, unspecified; D18.03 Hemangioma of intra-abdominal structures; F17.210 Nicotine dependence, cigarettes, uncomplicated; M89.58 Osteolysis, other site; D14.0 Benign neoplasm of middle ear, nasal cavity and accessory sinuses; M16.11 Unilateral primary osteoarthritis, right hip; M17.11 Unilateral primary osteoarthritis, right knee; Z79.84 Long term (current) use of oral hypoglycemic drugs
CPT/HCPCS: 36415; 70450; 70486; 71010; 72125; 74176; 76770; 80048; 80053; 80076; 80320; 80329; 81003; 81015; 82140; 82550; 82553; 83605; 83690; 83735; 83880; 84443; 84484; 85025; 85610; 85730; 86140; 87040; 87077; 87086; 87205; 87502; 87899; 93005; 94760; A9270-GY; G0480; J0456; J0696; J1644; J3480

== ENCOUNTER 2017-01-22 12:20 | Inpatient (IN) | payer MEDICARE ==
[2017-01-22 13:58] LABS: Hematocrit 40 % (42-52); Hemoglobin 12.6 g/dl (14.0-18.0); Mean Corpuscular HGB Conc 32 g/dl (31-36); Mean Corpuscular Hemoglobin 28 pg (27-31); Mean Corpuscular Volume 88 fL (80-94); Mean Platelet Volume 9 um3 (7.4-10.4); Red Blood Count 4.54 10^6/ul (4.0-5.4); Red Cell Distribution Width 17 % (10.5-15); White Blood Count 17.4 10^3/ul (3.5-10.8)
[2017-01-22 14:07] LABS: Albumin 2.7 g/dL (3.2-5.2); BUN/Creatinine Ratio 29.9 (8-20); Calcium 9.6 mg/dL (8.6-10.3); EGFR African American 49.8 (>60); EGFR Non-African American 38.8 (>60); Globulin 4.4 g/dL (2-4); Potassium 4.6 mmol/L (3.5-5.0); Total Bilirubin 0.4 mg/dL (0.2-1.0); Total Protein 7.1 g/dL (6.4-8.9)
[2017-01-22 14:11] LABS: Troponin I 0.2 ng/mL (<0.04)
--- NOTE | 2017-01-22 14:12 | RAD ---
HISTORY: Hypotension COMPARISONS: December 07, 2016 VIEWS:1: Single frontal portable view of the chest at 1:50 PM FINDINGS: LINES AND TUBES: None. CARDIOMEDIASTINAL SILHOUETTE: The cardiomediastinal silhouette is normal for portable technique. PLEURA: The costophrenic angles are sharp. No pleural abnormalities are noted. LUNG PARENCHYMA: There is linear opacification of the left lung base ABDOMEN: The upper abdomen is clear. There is no subphrenic gas. BONES AND SOFT TISSUES: No bone or soft tissue abnormalities are noted. IMPRESSION: LINEAR ATELECTASIS OF THE LEFT LOWER LUNG
[2017-01-22] MEDS: NS 0.9% 1000 ML* 3,000 ML IV ONE (14:19)
[2017-01-22] MEDS ORDERED: Piperac/Tazob 3.375 gm in NS* 3.375 GM/100 ML BAG IVPB ONE (14:39)
[2017-01-22] MEDS ORDERED: Vancomycin(*) 1,250 MG in NS 0.9% 250 ML* 250 ML IVPB ONE (15:20)
[2017-01-22 15:22] LABS: Urine Bacteria 1+ (Absent); Urine Bilirubin Negative (Negative); Urine Glucose Negative (Negative); Urine Nitrite Negative (Negative)
[2017-01-22] MEDS ORDERED: Vancomycin per Pharmacy* NOTE FOLLOW UP PRN (15:36)
[2017-01-22] MEDS ORDERED: Acetaminophen TAB* 325 MG PO PRN (15:38)
[2017-01-22] MEDS ORDERED: Dextrose 50% Syringe 50 ML* 25 GM/50 ML SYRINGE IV PUSH PRN (15:39)
[2017-01-22] MEDS ORDERED: Aspirin EC TAB* 325 MG PO ONE (15:54)
--- NOTE | 2017-01-22 16:37 | RAD ---
INDICATION: Facial droop COMPARISON: CT brain December 07, 2016; maxillofacial CT December 07, 2016 TECHNIQUE: Noncontrast axial source images were acquired from the skull base to the vertex. FINDINGS: Ventricles/sulci: There is cortical atrophy with compensatory dilatation of the CSF spaces. Brain parenchyma: There is extensive periventricular and subcortical white matter change compatible with chronic ischemia. Intracranial hemorrhage:None. Extra-axial spaces: There are no abnormal extra axial fluid collections or evidence of extra-axial mass. Calvarium: There is no calvarial fracture or other calvarial abnormality. Scalp: There is no evidence of scalp or extracalvarial soft tissue abnormality. Paranasal sinuses/mastoid: There is again an expansile mass in left maxillary antrum. This is imaged only in part but on the caudal most images is probably increase in size. This mass has been described previously. Other: None. IMPRESSION: CORTICAL ATROPHY WITH CHRONIC MICROVASCULAR ISCHEMIC CHANGES. NO ACUTE FINDINGS. EXPANSILE LEFT MAXILLARY ANTRAL MASS REQUIRES CORRELATION WITH CLINICAL HISTORY AND HISTOLOGY IF PRIOR CT HAS BEEN PERFORMED.
[2017-01-22] MEDS: Insulin LISPRO* 1 UNITS UNIT SUBCUT SCH (18:15)
[2017-01-22] MEDS: D5W 1000 ML BAG* 1,000 ML IV SCH (18:16)
[2017-01-22] MEDS: Heparin VIAL(*) 5000 UNITS/ML VIAL (FIVE THOUSAND) SUBCUT SCH (22:32)
[2017-01-22] MEDS: Cefepime(*) 1 GM in NS 0.9% 50 ML* 50 ML IVPB SCH (22:32)
--- NOTE | 2017-01-22 23:05 | HP ---
HISTORY AND PHYSICAL: DATE OF ADMISSION: 01/22/17 PRIMARY CARE PHYSICIAN: Destiney Can MD CHIEF COMPLAINT: Worsening lethargy and weakness. HISTORY OF PRESENT ILLNESS: The patient is not able to give adequate history. History is obtained t hrough the patient's significant other, Domitila Wright, as well as from the chart, and medical staff . Mr. Ramirez is a 71-year-old man with a past medical history of hypertension, hyperlipidemia, CVA, d iabetes, neurogenic bladder with chronic Ortiz, and expanding maxillary tumor, who was recently admi tted to the hospital in December, who presents with worsening weakness and mental status. As per the carrie santos's significant other, he had been doing fairly well at home after the last admission. She say s that he is not particularly active at home and does not talk much. They use a Scott lift to trans sharon the patient from bed to the chair. He is not ambulatory. Domitila states that visiting nurse stephanie e out on Wednesday and said "it looked like he had another stroke," but stated to keep him at home a nd then she came back today and felt that he was weaker and seemed more dehydrated and was worried a bout the wounds on his back, so she told them to bring the patient into the hospital. The patient a pparently was eating and drinking okay up until last night when he did not have much dinner. Domitila states she noted decreased urine output. His catheter was last changed on 01/04/17. The patient h ad similar presentation previously and there was some concern about the patient's safety or inabilit y to apparently take care of the patient at home at that time, although she felt that she could. 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 PAST SURGICAL HISTORY: Unremarkable. MEDICATIONS: 1. Metoprolol tartrate 50 mg by mouth 2 times daily. 2. Losartan 50 mg by mouth daily. 3. Tylenol 650 mg by mouth every 4 hours as needed for pain. 4. Metformin 500 mg by mouth 2 times daily. 5. Potassium chloride 10 mEq by mouth daily. 6. MiraLAX 17 g by mouth 2 times daily. ALLERGIES: No known drug allergies. FAMILY HISTORY: Unable to obtain. SOCIAL HISTORY: The patient does not smoke or drink any alcohol. Surrogate decision maker is his joaquin lowerylfriendDomitila. REVIEW OF SYSTEMS: Unable to obtain. PHYSICAL EXAMINATION GENERAL: The patient is an elderly, frail-appearing man lying in bed, in no appare nt distress; however, he is lethargic, slow to answer questions if at all. VITAL SIGNS: Temperature 98.6, heart rate of 113, respiratory rate of 20, O2 saturation 100% on cielo m air, and initial blood pressure was low at 77/43; however, responded to IV fluids, subsequently wa s 106/59. HEENT: Pupils equal, round, and reactive to light and accommodation. Anicteric sclerae. Dry mucou s membranes. Tongue has a thick white coat on it. No cervical adenopathy. LUNGS: Clear to auscultation bilaterally. No wheezes, rales, or rhonchi. CARDIOVASCULAR: Regular rate and rhythm. S1 and S2 present. No murmurs, gallops, or rubs. ABDOMEN: Soft, nontender, and nondistended. Bowel sounds positive. EXTREMITIES: Skin is dry. No edema. NEUROLOGIC: The patient is alert, makes good eye contact, and able to follow directions. May have slight left-sided facial droop. Do not appreciate significant difference in strength on either side , although it is difficult to get the patient to follow those commands. SKIN: The patient has an unstageable ulcer on the right buttocks that was cultured. This has been longstanding. He also has some additional more superficial ulcers on the buttocks as well as one wi th necrotic center. The patient has multiple necrotic ulcers on the left foot that are also unstage able. DIAGNOSTIC STUDIES/LAB DATA: White blood cell count of 17.4, hematocrit of 40, and platelets of 32 1. INR of 1.30. Sodium of 150, potassium 4.6, chloride of 117, BUN of 52, creatinine 1.74, and glu cose of 192. ALT 118, AST 39, and alk phos 95. Troponin 0.20. UA of 3+ blood, 2+ leuk esterase, 3+ wbc's, 3+ rbc's, and 1+ bacteria. EKG personally reviewed show sinus tachycardia. Chest x-ray shows no acute disease, some atelectasi s. ASSESSMENT AND PLAN: Increasing lethargy, acute kidney injury, urinary tract infection verus wound infection, and elevated troponin in a 71-year-old man with a past medical history of hypertension, h yperlipidemia, cerebrovascular accident, diabetes, neurogenic bladder with chronic Ortiz, and maxill shorty tumor. 1. Sepsis secondary to urinary tract infection versus wound infection: Wound was cultured by Dr. Serge christopher. The patient also was noted to have urinary retention and a large amount of urine output when his Ortiz catheter was changed. We will start the patient on broad-spectrum antibiotics with vanco mycin and cefepime. We will follow culture data. The patient also got blood cultures and lactic ac id pending at this time. We will place a wound care consult. 2. Hypernatremia: Maybe the source of the patient's worsening lethargy. The patient received aggr essive IV fluids in the emergency department. We will continue on D5 water for now and trend his BM Ps. 3. Acute kidney injury: Possible sign of dehydration. The patient's creatinine of 1.74, the basel ine has been around 0.7. Again, he is receiving aggressive fluid resuscitation. We will follow thi s in the morning. There may also be some obstructive affect from Ortiz dislodgement. As above with replacement of Ortiz, the patient had good urine output. If not improving tomorrow, can consider r enal ultrasound. 4. Weakness: Difficult to assess the patient as he is not following commands well. I will order a CT of the head as this was not ordered yet. I will start the patient on aspirin. Of note, though the patient's significant other did not notice that he had particular weakness on side or the other and did not feel that his chronic symptoms from his cerebrovascular disease were changed much. 5. Hypertension: We will hold his home medications for now. 6. Troponin elevation: Likely due to demand mediated from sepsis. We will continue to trend tropo nins for now. No reports of any chest pain. 7. Diabetes: I will hold his home metformin. Continue the patient on insulin sliding scale. 8. DVT prophylaxis: Heparin subcu. 9. Disposition: Seems that the patient may not be safe at home. I will order a social work consul t. The patient was reportedly in the [facility] in the past; however, his significant other ended up taking him home from there. He maybe appropriate for palliative consult, but I do not think that Zaira antoine is prepared for that at this time. She continues to want to push forward with the patient's m axillary tumor resection and which she states they have an upcoming appointment at [facility] for . 10. Code status: The patient is a full code. TIME SPENT: Total time spent on this admission 55 minutes with over half the time spent face-to-fac e with the patient counseling and coordinating care. [id number]/CPS #: [id number]
[2017-01-23] MEDS: Vancomycin(*) 750 MG in NS 0.9% 250 ML* 250 ML IVPB SCH ×3 (00:35→17:08)
[2017-01-23] MEDS: D5W 1000 ML BAG* 1,000 ML IV SCH (04:38)
[2017-01-23] MEDS: Heparin VIAL(*) 5000 UNITS/ML VIAL (FIVE THOUSAND) SUBCUT SCH ×3 (05:30→23:16)
[2017-01-23 07:46] LABS: Hematocrit 30 % (42-52); Hemoglobin 9.3 g/dl (14.0-18.0); Mean Corpuscular HGB Conc 31 g/dl (31-36); Mean Corpuscular Hemoglobin 27 pg (27-31); Mean Corpuscular Volume 89 fL (80-94); Mean Platelet Volume 9 um3 (7.4-10.4); Red Blood Count 3.38 10^6/ul (4.0-5.4); Red Cell Distribution Width 17 % (10.5-15); White Blood Count 13.3 10^3/ul (3.5-10.8)
[2017-01-23] MEDS ORDERED: NS 0.9% 250 ML* 250 ML ONE ×2 (08:25→17:03)
[2017-01-23] MEDS: Aspirin Low Dose CHEW TAB* 81 MG PO SCH (08:30)
[2017-01-23 08:35] LABS: BUN/Creatinine Ratio 38.5 (8-20); Calcium 8.6 mg/dL (8.6-10.3)
[2017-01-23] MEDS: Insulin LISPRO* 1 UNITS UNIT SUBCUT SCH ×3 (08:38→17:09)
[2017-01-23] MEDS: Cefepime(*) 1 GM in NS 0.9% 50 ML* 50 ML IVPB SCH ×2 (11:48→23:39)
[2017-01-23] MEDS: metroNIDAZOLE IV 500 MG/100ML* 500 MG/100 ML BAG IVPB SCH ×2 (12:43→19:15)
[2017-01-23 15:15] LABS: BUN/Creatinine Ratio 41.3 (8-20); Calcium 8.3 mg/dL (8.6-10.3); EGFR African American 122.2 (>60); Potassium 3.2 mmol/L (3.5-5.0)
--- NOTE | 2017-01-23 16:52 | PN ---
Subjective Date of Service: 01/23/17 Interval History: HOSPITALIST PROGRESS NOTE Patient seen and examined at bedside. Opens eyes and helped us turn him in bed, but non-verbal. Family History: Unchanged from Admission Social History: Unchanged from Admission Past Medical History: Unchanged from Admission Objective Active Medications: Acetaminophen (Tylenol Tab*) 650 mg PO Q4H PRN PRN Reason: TEMP GREATER THAN 101.5 F Aspirin (Aspirin Low Dose Tab*) 81 mg PO DAILY [facility] Last Admin: 01/23/17 08:30 Dose: 81 mg Dextrose (D50w Syringe 50 Ml*) 12.5 gm IV PUSH .FOR FS < 60 - SS PRN PRN Reason: FS < 60 Heparin Sodium (Porcine) (Heparin Vial(*)) 5,000 units SUBCUT Q8HR [facility] Last Admin: 01/23/17 14:07 Dose: 5,000 units Cefepime HCl 1 gm/ Sodium (Chloride) 50 mls @ 100 mls/hr IVPB Q12H [facility] Last Admin: 01/23/17 11:48 Dose: 100 mls/hr Vancomycin HCl 750 mg/ Sodium (Chloride) 250 mls @ 166.667 mls/hr IVPB Q8H [facility] Last Admin: 01/23/17 08:29 Dose: 166.667 mls/hr Dextrose (D5w 1000 Ml Bag*) 1,000 mls @ 100 mls/hr IV PER RATE [facility] Last Admin: 01/23/17 04:38 Dose: 100 mls/hr Metronidazole/Sodium Chloride (Flagyl 500 Mg Ivpb*) 500 mg in 100 mls @ 100 mls /hr IVPB Q8H [facility] Last Admin: 01/23/17 12:43 Dose: 100 mls/hr Lactated Ringer's (Lactated Ringers 1000 Ml Bag*) 1,000 mls @ 0 mls/hr IV WIDE OPEN [facility] PRN Reason: Wide Open Stop: 01/23/17 23:59 Last Admin: 01/23/17 12:41 Dose: 999 mls/hr Insulin Human Lispro (Humalog*) 0 - 10 units SUBCUT AC [facility] PRN Reason: Protocol Last Admin: 01/23/17 12:40 Dose: 4 units Pharmacy Consult (Vancomycin Per Pharmacy*) 1 note FOLLOW UP . PRN PRN Reason: PER PROTOCOL Pharmacy Profile Note (Vancomycin Trough Check) 1 note FOLLOW UP 0730 ONE Stop: 01/24/17 07:31 Vital Signs 01/23/17 01/23/17 01/23/17 07:48 08:00 12:15 Temperature 99.0 F 98.7 F Pulse Rate 107 104 Respiratory 22 18 20 Rate Blood Pressure 97/63 86/57 (mmHg) O2 Sat by Pulse 97 92 100 Oximetry 01/23/17 14:12 Temperature Pulse Rate 109 Respiratory Rate Blood Pressure 95/56 (mmHg) O2 Sat by Pulse 98 Oximetry Oxygen Devices in Use Now: Nasal Cannula Appearance: Elderly male lying in bed in NAD. Eyes: No Scleral Icterus Ears/Nose/Mouth/Throat: - - Dry MM Neck: Trachea Midline Respiratory: Symmetrical Chest Expansion and Respiratory Effort, Clear to Auscultation Cardiovascular: RRR - Normal S1 and S2 Abdominal: NL Sounds; No Tenderness; No Distention Skin: - - Stage 2 decubitus on right hip, unstageable decubitus on left and 2 unstageable ones on sacral are, one with dry eschar and another with foul smelling purulent discharge Neurological: - - Opens eyes, non-verbal Lines/Tubes/Other Access: Clean, Dry and Intact Peripheral IV Result Diagrams: 01/23/17 07:27 01/23/17 14:50 Assess/Plan/Problems-Billing Assessment: Mr. Ramirez is a 71yo M with PMH of type 2 DM, HTN, HLD, CVA, left maxilla mass who presented to ED with weakness and altered MS, found to be dehydrated and hypernatremic. - Patient Problems (1) Sepsis Comment: - Patient met sepsis criteria on admission with leukocytosis and tachycardia. - Sources are sacral decubitus infection and UTI. (2) Decubitus ulcer Comment: - Much worse than on his prior admission. - Surgery consult requested for debridment. - Continue Vancomycin and Cefepime, add Metronidazole. (3) UTI (urinary tract infection) Comment: - Patient was diagnosed with urinary retention on his prior admission, likely secondary to neurogenic bladder and he was discharged with a Ortiz. - Unclear when Ortiz was removed or changed. - UA is abnormal - follow cultures. - Continue broad spectrum abx. (4) Hypernatremia Comment: - Similar to his prior admission. (5) Troponin level elevated Comment: - Suspect demand ischemia in the setting of sepsis. (6) BHAVIK (acute kidney injury) Comment: - Secondary to dehydration - resolved. (7) Diabetes Comment: - Continue Lispro SS. (8) DVT prophylaxis Comment: - SQ heparin. (9) Full code status (10) Discharge planning issues Comment: - I suspect this patient is not safe to return home. He was discharge home to the care of his SO on 12/14/16. Recommendation at that time was to d/c to SNF, but SO was adamant she would be able to care for him at home. - He returns a month later with similar presentation of dehydration, hypernatremia, sepsis, with significant worsening of his decubiti. ED notes describe strong odor of urine and unkempt appearance. - SW consult requested. - I believe discharge home this time should not be an option. Status and Disposition: Inpatient.
[2017-01-23 20:55] LABS: BUN/Creatinine Ratio 43.5 (8-20); Calcium 8.3 mg/dL (8.6-10.3); EGFR Non-African American 127.5 (>60); Potassium 3.7 mmol/L (3.5-5.0)
--- NOTE | 2017-01-23 22:03 | CONS ---
CONSULTATION REPORT: DATE OF CONSULT: 01/23/17 REFERRING PROVIDER: Kylah Story MD, from the hospitalist service. LOCATION: The patient was seen in bed 436 on the medical floor. REASON FOR CONSULTATION: Sacral decubiti. HISTORY OF PRESENT ILLNESS: Mr. Dar Ramirez is a 71-year-old gentleman with multiple medical issues. He was not able to give an adequate history and this was obtained from the chart and the primary care provider here at the hospital. He has a history of hypertension, hyperlipidemia, CVA, diabetes, neurogenic bladder with chronic Ortiz, expanding maxillary tumor who presented with worsening weakness and worsening mental status. The patient's significant other states he had been doing well at home, but he has become weaker. He seemed to be dehydrated. He was admitted, felt to have a component of possible urosepsis. He was also noted to have a significant odor from a sacral decubiti and surgical consultation was obtained. PAST MEDICAL HISTORY: 1. Hypertension. 2. Hyperlipidemia. 3. CVA. 4. Diabetes. 5. Neurogenic bladder. 6. Expanding maxillary mass, apparent malignancy. PAST SURGICAL HISTORY: None. MEDICATIONS: Include: 1. Metoprolol. 2. Losartan. 3. Tylenol. 4. Metformin. 5. Potassium. 6. MiraLAX. ALLERGIES: He has no known drug allergies. FAMILY HISTORY: Unable to obtain. SOCIAL HISTORY: Currently, the patient does not smoke or drink alcohol. His girlfriend, Domitila, is the surrogate decision maker. REVIEW OF SYSTEMS: Unable to be obtained at the bedside. PHYSICAL EXAM: In general, the patient is an elderly, frail-appearing - [place] man lying to the right in bed. He is in no apparent distress. He is lethargic, does not answer questions, but does have his eyes open. Skin Exam: The patient has an unstageable ulcer over the left hip trochanter with some dry eschar. No evidence of fluctuance, redness, or odor. Over the sacrum and the sacroiliac joint area are two separate open areas that communicate subcutaneously. There is some necrotic tissue which I debrided at the bedside. There was no obvious bone exposed, but it is very little tissue here. There is no undrained abscess or pus. On the right trochanter is also an eschar with an unstageable ulcer without evidence of abscess, cellulitis, or fluctuance. IMPRESSION: Sacral and lower back pressure ulcers. These are stage 4. No obvious bone exposed. However, this is down to the fascia and there was some necrotic tissue and odor. No undrained pus. Wounds today were packed with moist 4x4, Kerlix, covered with a dry dressing. We will keep Mepilex on both trochanters where I do not believe debridement is necessary. Plan will be to continue with IV antibiotics.We will debride and pack the wound and I will talk with his significant other. I suspect that there is little chance that we will be able to achieve healing of this ulcer but will pursue the usual wound care management and consider a VAC placement. Thank you very much for this consultation. [id number]/[facility] #: [id number] ATUL
[2017-01-24] MEDS: Vancomycin(*) 750 MG in NS 0.9% 250 ML* 250 ML IVPB SCH ×3 (00:53→16:56)
[2017-01-24] MEDS: metroNIDAZOLE IV 500 MG/100ML* 500 MG/100 ML BAG IVPB SCH ×3 (03:01→18:31)
[2017-01-24 05:55] LABS: Hematocrit 27 % (42-52); Hemoglobin 8.7 g/dl (14.0-18.0); Mean Corpuscular HGB Conc 33 g/dl (31-36); Mean Corpuscular Hemoglobin 28 pg (27-31); Mean Corpuscular Volume 87 fL (80-94); Mean Platelet Volume 8 um3 (7.4-10.4); Red Blood Count 3.09 10^6/ul (4.0-5.4); Red Cell Distribution Width 16 % (10.5-15)
[2017-01-24] MEDS: Heparin VIAL(*) 5000 UNITS/ML VIAL (FIVE THOUSAND) SUBCUT SCH ×3 (05:55→22:22)
[2017-01-24 06:14] LABS: C Reactive Protein 39.43 mg/L (< 5.00); Calcium 8.1 mg/dL (8.6-10.3); EGFR African American 192.3 (>60); EGFR Non-African American 149.6 (>60)
[2017-01-24 06:19] LABS: Vancomycin Trough 16.3 mcg/mL
[2017-01-24] MEDS ORDERED: Vancomycin Trough Check NOTE FOLLOW UP ONE (07:30)
[2017-01-24 08:17] LABS: Erythrocyte Sed Rate 91 mm/Hr (0-40)
[2017-01-24] MEDS: Aspirin Low Dose CHEW TAB* 81 MG PO SCH (09:00)
[2017-01-24] MEDS ORDERED: NS 0.9% 250 ML* 250 ML ONE (09:01)
[2017-01-24] MEDS: Insulin LISPRO* 1 UNITS UNIT SUBCUT SCH ×3 (09:19→17:52)
[2017-01-24] MEDS: Cefepime(*) 1 GM in NS 0.9% 50 ML* 50 ML IVPB SCH ×2 (10:31→22:23)
[2017-01-24 11:52] LABS: Calcium 8.1 mg/dL (8.6-10.3); EGFR African American 170.3 (>60); EGFR Non-African American 132.4 (>60); Potassium 4.1 mmol/L (3.5-5.0)
--- NOTE | 2017-01-24 16:04 | PN ---
Subjective Date of Service: 01/24/17 Interval History: HOSPITALIST PROGRESS NOTE Patient seen and examined at bedside. Non-verbal. Family History: Unchanged from Admission Social History: Unchanged from Admission Past Medical History: Unchanged from Admission Objective Active Medications: Acetaminophen (Tylenol Tab*) 650 mg PO Q4H PRN PRN Reason: TEMP GREATER THAN 101.5 F Aspirin (Aspirin Low Dose Tab*) 81 mg PO DAILY [facility] Last Admin: 01/24/17 09:00 Dose: 81 mg Dextrose (D50w Syringe 50 Ml*) 12.5 gm IV PUSH .FOR FS < 60 - SS PRN PRN Reason: FS < 60 Heparin Sodium (Porcine) (Heparin Vial(*)) 5,000 units SUBCUT Q8HR [facility] Last Admin: 01/24/17 13:38 Dose: 5,000 units Cefepime HCl 1 gm/ Sodium (Chloride) 50 mls @ 100 mls/hr IVPB Q12H [facility] Last Admin: 01/24/17 10:31 Dose: 100 mls/hr Vancomycin HCl 750 mg/ Sodium (Chloride) 250 mls @ 166.667 mls/hr IVPB Q8H [facility] Last Admin: 01/24/17 09:03 Dose: 166.667 mls/hr Metronidazole/Sodium Chloride (Flagyl 500 Mg Ivpb*) 500 mg in 100 mls @ 100 mls /hr IVPB Q8H [facility] Last Admin: 01/24/17 10:50 Dose: 100 mls/hr Potassium Chloride 40 meq/ (Lactated Ringer's) 1,020 mls @ 100 mls/hr IVPB Q10H [facility] Last Admin: 01/24/17 04:55 Dose: 100 mls/hr Insulin Human Lispro (Humalog*) 0 - 10 units SUBCUT AC [facility] PRN Reason: Protocol Last Admin: 01/24/17 13:12 Dose: 2 units Pharmacy Consult (Vancomycin Per Pharmacy*) 1 note FOLLOW UP . PRN PRN Reason: PER PROTOCOL Pharmacy Profile Note (Vancomycin Trough Check) 1 note FOLLOW UP 0730 ONE Stop: 01/26/17 07:31 Vital Signs 01/24/17 01/24/17 01/24/17 04:15 07:28 08:00 Temperature 99.4 F 99.9 F Pulse Rate 100 Respiratory 20 16 Rate Blood Pressure 101/61 102/69 (mmHg) O2 Sat by Pulse 100 100 Oximetry 04/23/17 11:55 Temperature 98.7 F Pulse Rate 110 Respiratory 24 Rate Blood Pressure 105/71 (mmHg) O2 Sat by Pulse Oximetry Oxygen Devices in Use Now: Nasal Cannula Appearance: Elderly male lying in bed in NAD. Eyes: No Scleral Icterus Ears/Nose/Mouth/Throat: Mucous Membranes Moist Neck: Trachea Midline Respiratory: Symmetrical Chest Expansion and Respiratory Effort, Clear to Auscultation Cardiovascular: RRR - Normal S1 and S2 Abdominal: NL Sounds; No Tenderness; No Distention Extremities: - - Very dry skin. Right heel discoloration Skin: - - Stage 4 sacral decubitus with packing in place, 2 others sacral deubiti unstageable. Stage 2 decubitus on left hip and unstageable on the right Neurological: - - Alert and awake, eyes opens, follows commands Lines/Tubes/Other Access: Clean, Dry and Intact Peripheral IV Nutrition: Taking PO's Result Diagrams: 01/24/17 05:45 01/24/17 11:31 Assess/Plan/Problems-Billing Assessment: Mr. Ramirez is a 71yo M with PMH of type 2 DM, HTN, HLD, CVA, left maxilla mass who presented to ED with weakness and altered MS, found to be dehydrated and hypernatremic. - Patient Problems (1) Severe sepsis Comment: - Patient met sepsis criteria on admission with leukocytosis and tachycardia, and also had BHAVIK. - Sources are sacral decubitus infection and UTI. (2) Decubitus ulcer Comment: - Much worse than on his prior admission. - Surgery consult appreciated. - Continue Vancomycin, Cefepime, and Metronidazole. (3) Bacteroides fragilis infection Comment: - Blood culture growing B. fragilis. - Continue Metronidazole and repeat blood cultures. - ID consult. (4) UTI (urinary tract infection) Comment: - Patient was diagnosed with urinary retention on his prior admission, likely secondary to neurogenic bladder and he was discharged with a Ortiz. - Unclear when Ortiz was removed or changed. - Culture growing enterococcus. - Continue broad spectrum abx. (5) Hypernatremia Comment: - Similar to his prior admission. - Resolved. (6) Troponin level elevated Comment: - Suspect demand ischemia in the setting of sepsis. (7) BHAVIK (acute kidney injury) Comment: - Secondary to dehydration - resolved. (8) Diabetes Comment: - Continue Lispro SS. (9) DVT prophylaxis Comment: - SQ heparin. (10) Full code status (11) Discharge planning issues Comment: - I suspect this patient is not safe to return home. He was discharge home to the care of his SO on 12/14/16. Recommendation at that time was to d/c to SNF, but SO was adamant she would be able to care for him at home. - He returns a month later with similar presentation of dehydration, hypernatremia, sepsis, with significant worsening of his decubiti. ED notes describe strong odor of urine and unkempt appearance. - SW consult requested. - D/w his SO today - she is in agreement with SNF placement and chooses [facility]. Status and Disposition: Inpatient.
--- NOTE | 2017-01-24 17:07 | RAD ---
Indication: Sacral decubitus. CT of the abdomen and pelvis was performed without oral or IV contrast. Coronal and sagittal reconstructed images were obtained. Comparison is made with previous exam dated December 14, 2016. Lung bases demonstrate no pleural fluid, nodules or masses. Bibasilar atelectasis is noted. The heart is of normal size without evidence of pericardial effusion. Liver is normal in size. Low density lesion is noted in the right lobe of liver which is unchanged from December 14, 2016. No other focal lesions or intrahepatic ductal dilatation is noted. The gallbladder demonstrates no calcified gallstones. No pericholecystic fluid or wall thickening is identified. The pancreas demonstrates no mass or pancreatic ductal dilatation. The spleen is normal in size. Bilateral adrenal hyperplasia is noted. The kidneys demonstrate no definite obstructive uropathy. Aorta and inferior vena cava are unremarkable. Stool is present throughout the colon. CT of the pelvis demonstrates no retroperitoneal or pelvic lymphadenopathy. Mild wall thickening of the colon is noted of uncertain etiology. Ortiz catheter appears in place with a markedly thickened urinary bladder wall. The pelvis is otherwise unremarkable. Sacral decubitus is noted. The subcutaneous air and ulcer appears new since previous exam. Phlegmon extends to the left sacral segment. There may be some erosive changes of the posterior elements however this was present on previous exam of December 14, 2016 and is not significantly changed.. The sacroiliac joints and pelvis are unremarkable. IMPRESSION: MARKEDLY THICKENED URINARY BLADDER WALL IS A COLLAPSED URINARY BLADDER. THICKENED RECTAL WALL IS ALSO NOTED. RIGHT-SIDED SACRAL DECUBITUS WHICH EXTENDS TO THE LAST SACRAL SEGMENT WITH SUGGESTION OF SOME EROSION OF THE POSTERIOR ELEMENTS OF THE FINAL SACRAL SEGMENT AND THE POSSIBILITY OF OSTEOMYELITIS IS NOT EXCLUDED. ALTHOUGH THE SACRAL DECUBITUS IS NEW SINCE DECEMBER 14, 2016 EROSIVE CHANGES ARE NOT SIGNIFICANTLY CHANGED DECEMBER 14, 2016.
[2017-01-25] MEDS: Vancomycin(*) 750 MG in NS 0.9% 250 ML* 250 ML IVPB SCH ×3 (00:19→15:29)
[2017-01-25] MEDS: metroNIDAZOLE IV 500 MG/100ML* 500 MG/100 ML BAG IVPB SCH ×3 (02:54→19:23)
[2017-01-25] MEDS: Heparin VIAL(*) 5000 UNITS/ML VIAL (FIVE THOUSAND) SUBCUT SCH ×3 (05:14→22:17)
[2017-01-25 08:03] LABS: Hematocrit 27 % (42-52); Hemoglobin 8.7 g/dl (14.0-18.0); Mean Corpuscular HGB Conc 32 g/dl (31-36); Mean Corpuscular Hemoglobin 28 pg (27-31); Mean Corpuscular Volume 86 fL (80-94); Mean Platelet Volume 9 um3 (7.4-10.4); Red Blood Count 3.13 10^6/ul (4.0-5.4); Red Cell Distribution Width 16 % (10.5-15); White Blood Count 12.7 10^3/ul (3.5-10.8)
[2017-01-25] MEDS: Insulin LISPRO* 1 UNITS UNIT SUBCUT SCH ×3 (08:09→17:14)
[2017-01-25 08:13] LABS: BUN/Creatinine Ratio 28.3 (8-20); C Reactive Protein 39.34 mg/L (< 5.00); Calcium 8.3 mg/dL (8.6-10.3); EGFR African American 196.5 (>60); EGFR Non-African American 152.8 (>60); Potassium 4.5 mmol/L (3.5-5.0)
[2017-01-25] MEDS: Aspirin Low Dose CHEW TAB* 81 MG PO SCH (09:51)
[2017-01-25] MEDS: Cefepime(*) 1 GM in NS 0.9% 50 ML* 50 ML IVPB SCH (10:21)
--- NOTE | 2017-01-25 16:09 | PN ---
Subjective Date of Service: 01/25/17 Interval History: HOSPITALIST PROGRESS NOTE Patient seen and examined at bedside. Answers "yes" when asked if he's hungry, "no" when asked if he has pain. Family History: Unchanged from Admission Social History: Unchanged from Admission Past Medical History: Unchanged from Admission Objective Active Medications: Acetaminophen (Tylenol Tab*) 650 mg PO Q4H PRN PRN Reason: TEMP GREATER THAN 101.5 F Aspirin (Aspirin Low Dose Tab*) 81 mg PO DAILY [facility] Last Admin: 01/25/17 09:51 Dose: 81 mg Dextrose (D50w Syringe 50 Ml*) 12.5 gm IV PUSH .FOR FS < 60 - SS PRN PRN Reason: FS < 60 Heparin Sodium (Porcine) (Heparin Vial(*)) 5,000 units SUBCUT Q8HR [facility] Last Admin: 01/25/17 12:36 Dose: 5,000 units Vancomycin HCl 750 mg/ Sodium (Chloride) 250 mls @ 166.667 mls/hr IVPB Q8H [facility] Last Admin: 01/25/17 15:29 Dose: 166.667 mls/hr Metronidazole/Sodium Chloride (Flagyl 500 Mg Ivpb*) 500 mg in 100 mls @ 100 mls /hr IVPB Q8H [facility] Last Admin: 01/25/17 12:35 Dose: 100 mls/hr Potassium Chloride 40 meq/ (Lactated Ringer's) 1,020 mls @ 100 mls/hr IVPB Q10H [facility] Last Admin: 01/25/17 12:35 Dose: 100 mls/hr Ceftriaxone Sodium 2 gm/ (Sodium Chloride) 100 mls @ 200 mls/hr IVPB Q24H [facility] Last Admin: 01/25/17 14:08 Dose: 200 mls/hr Insulin Human Lispro (Humalog*) 0 - 10 units SUBCUT AC [facility] PRN Reason: Protocol Last Admin: 01/25/17 12:36 Dose: 1 units Pharmacy Consult (Vancomycin Per Pharmacy*) 1 note FOLLOW UP . PRN PRN Reason: PER PROTOCOL Pharmacy Profile Note (Vancomycin Trough Check) 1 note FOLLOW UP 0730 ONE Stop: 01/26/17 07:31 Vital Signs 01/25/17 01/25/17 01/25/17 04:24 07:45 08:00 Temperature 97.3 F 100.6 F Pulse Rate 100 107 Respiratory 20 18 18 Rate Blood Pressure 113/73 98/63 (mmHg) O2 Sat by Pulse 97 98 99 Oximetry 01/25/17 11:35 Temperature 100.1 F Pulse Rate 110 Respiratory 22 Rate Blood Pressure 115/70 (mmHg) O2 Sat by Pulse 99 Oximetry Oxygen Devices in Use Now: Nasal Cannula Appearance: Elderly male lying in bed in NAD. Eyes: No Scleral Icterus Ears/Nose/Mouth/Throat: Mucous Membranes Moist Neck: Trachea Midline Respiratory: Symmetrical Chest Expansion and Respiratory Effort, Clear to Auscultation Cardiovascular: RRR - Normal S1 and S2 Abdominal: NL Sounds; No Tenderness; No Distention Neurological: - - Alert and awake Lines/Tubes/Other Access: Clean, Dry and Intact Peripheral IV Nutrition: Taking PO's Result Diagrams: 01/25/17 07:40 01/25/17 07:40 Assess/Plan/Problems-Billing Assessment: Mr. Ramirez is a 71yo M with PMH of type 2 DM, HTN, HLD, CVA, left maxilla mass who presented to ED with weakness and altered MS, found to be dehydrated and hypernatremic. - Patient Problems (1) Severe sepsis Comment: - Patient met sepsis criteria on admission with leukocytosis and tachycardia, and also had BHAVIK. - Sources are sacral decubitus infection and UTI. (2) Decubitus ulcer Comment: - Much worse than on his prior admission. - Surgery consult appreciated. - Continue Vancomycin, Cefepime, and Metronidazole. - CT abd/pelvis reviewed - suspect underlying osteomyelitis. (3) Bacteroides fragilis infection Comment: - Blood culture growing B. fragilis. - Continue Metronidazole and repeat blood cultures. - ID consult. (4) UTI (urinary tract infection) Comment: - Patient was diagnosed with urinary retention on his prior admission, likely secondary to neurogenic bladder and he was discharged with a Ortiz. - Unclear when Ortiz was removed or changed. - Culture growing enterococcus. - Continue broad spectrum abx. (5) Hypernatremia Comment: - Similar to his prior admission. - Resolved. (6) Troponin level elevated Comment: - Suspect demand ischemia in the setting of sepsis. (7) BHAVIK (acute kidney injury) Comment: - Secondary to dehydration - resolved. (8) Diabetes Comment: - Continue Lispro SS. (9) DVT prophylaxis Comment: - SQ heparin. (10) Full code status (11) Discharge planning issues Comment: - I suspect this patient is not safe to return home. He was discharge home to the care of his SO on 12/14/16. Recommendation at that time was to d/c to SNF, but SO was adamant she would be able to care for him at home. - He returns a month later with similar presentation of dehydration, hypernatremia, sepsis, with significant worsening of his decubiti. ED notes describe strong odor of urine and unkempt appearance. - SW consult requested. - D/w his SO - she is in agreement with SNF placement and chooses [facility]. Status and Disposition: Inpatient.
--- NOTE | 2017-01-25 16:38 | PN ---
Progress Note - Progress Note Note: Surgery Progress: (patient seen w/ and examined by Dr. Dillon) S: medicine notes reviewed; on Vanco, Rocephin, and Flagyl O: Vital Signs - 8 hr 01/25/17 11:35 Temperature 100.1 F Pulse Rate 110 Respiratory 22 Rate Blood Pressure 115/70 (mmHg) O2 Sat by Pulse 99 Oximetry Sacral wound: two open areas w/ skin bridge (of undetermined viability); two add 'l areas of at least partial thickness necrosis to R side, but w/ intact eschar ; open wounds connect deep to skin bridge; right side wound undermines inferiorly ~ 8cm but w/o evidence of undrained collection; the remainder of the wound has more limited undermining; there are variable areas of necrotic tissue. These could use debridement. Wound repacked w/ NS-moist Kerlix. CT: likely osteomyelitis of sacrum ORDERED: MRSA/SA SSTI, Culture & Stain COMMENTS: Comment: right buttock wound Verbal to [id number] by [email or web address] at 1701 on 01/22/17. Results read back accurately. Procedure Result Reported Site MRSA/S. aureus SSTI PCR Final 01/22/17- 1700 ML Organism 1 MRSA POSITIVE Organism 2 S.AUREUS POSITIVE Wound/Misc Gram Stain Final 01/22/17- 1547 ML 4+ Neutrophils 4+ Gram Negative Bacilli 4+ Gram Positive Cocci 4+ Gram Positive Bacilli Wound/Misc Culture Final 01/24/17- 1338 ML Organism 1 ENTEROCOCCUS FAECALIS Quantity 2+ Organism 2 BACTEROIDES FRAGILIS Quantity 1+ Beta Lactamase Positive Organism 3 NORMAL ANIVAL Quantity 1+ 1. ENTEROCOCCUS FAECALIS M.I.C. RX Ampicillin <=2 S Penicillin 4 S Ciprofloxacin <=0.5 S Erythromycin >=8 R A/P: extensive sacral decubitus; Dr. Dillon spoke w/ his SO who gave consent for debridement of the wound which is planned for 01/26. Med mgmnt and abx per hosp/ID.
--- NOTE | 2017-01-25 20:46 | CONS ---
CONSULTATION REPORT: DATE OF CONSULT: 01/25/17 REQUESTING PHYSICIAN: Dr. Story. CONSULTING SERVICE: Infectious Disease. REASON FOR CONSULT: Sacral osteomyelitis. IMPRESSION: 1. Sacral decubitus ulcer, large, with exposed muscle and on imaging at least was adjacent to the distal sacrum with bony changes present taken together this is osteomyelitis. A wound specimen from the ulcer was PCR positive for MRSA, also grew bacteroides and enterococcus, and he has bacteroides in his blood. 2. Chronic indwelling Ortiz catheter which was obstructed, now growing enterococcus and staph simulans urinary tract infection. 3. History of stroke. 4. Neurogenic bladder and chronic Ortiz catheter. RECOMMENDATIONS: Continue vancomycin goal trough 10 to 15 and will change cefepime to ceftriaxone and will continue Flagyl 500 mg IV every 8 hours. Plan on an initial IV antibiotic course and likely transition to oral therapy eventually. He will need ongoing wound therapy as well. HISTORY OF PRESENT ILLNESS: This is a 71-year-old male with a stroke who is debilitated, cannot get out of bed. He also has a Ortiz catheter since his last admission about a month ago. He was being taken care of at home, and has developed a decubitus ulcer, and for that reason he was referred to the emergency room because of increasing drainage and odor from the wound. Blood cultures were taken on admission and 1 of 4 bottles was growing bacteroides, 1 of 4 has a gram-negative coccobacilli which is not yet speciated. He cannot provide any of the history which was obtained instead from review of the medical record and discussion with Dr. Story. Here he has had no fevers. He has been hemodynamically stable. He has been on vancomycin, cefepime, and Flagyl. His followup blood cultures are pending. A CT of the abdomen and pelvis showed sacral soft tissue defect and erosion of the posterior element of the sacral segment and possible osteomyelitis. The urinary bladder wall is thickened. He denies pain. PAST MEDICAL HISTORY: 1. Stroke. 2. Hypertension. 3. Hyperlipidemia. 4. Diabetes. 5. Neurogenic bladder. 6. Chronic Ortiz. 7. Maxillary mass. MEDICATIONS: 1. Tylenol. 2. Aspirin. 3. Heparin subcutaneous injections. 4. Cefepime 1 g every 12 hours. 5. Vancomycin 750 mg every 8 hours. 6. Flagyl 500 mg every 8 hours. ALLERGIES: No known drug allergies. FAMILY HISTORY: Unable to obtain. SOCIAL HISTORY: He has been living with his significant other. He has no travel or sick contacts. REVIEW OF SYSTEMS: Unobtainable given his mental status. PHYSICAL EXAM: Vital Signs: Temperature 36, heart rate 100, respiratory rate 20, blood pressure 113/70, and O2 sat 97% on room air. General: He is awake, answers some questions, did not follow commands. He does regard. Neurologic: Does not follow commands, but there is no lower extremity clonus bilaterally. HEENT: There is no conjunctival hemorrhage. Oropharynx: No lesions. Neck: Supple without nuchal rigidity. Lymph nodes: There is no cervical or supraclavicular lymphadenopathy. Heart: Regular rate and rhythm without murmurs, rubs, or gallops. Lungs: Clear to auscultation bilaterally. Abdomen is soft, nontender, and nondistended. Skin: There is no rash or splinter hemorrhages. Musculoskeletal: There is a large sacral decubitus defect with underlying fibrin and exposed muscle with foul odor. There is surrounding erythema. DIAGNOSTIC STUDIES/LAB DATA: Creatinine 0.5, CRP 40, white blood cell count 12 , hemoglobin 8, platelets 190. Please see impressions and recommendations outlined above which I have discussed with Dr. Story. Thanks for asking me to see Mr. Ramirez in consultation. [id number]/[facility] #: [id number]
[2017-01-26] MEDS: Vancomycin(*) 750 MG in NS 0.9% 250 ML* 250 ML IVPB SCH ×3 (00:14→21:31)
[2017-01-26] MEDS: metroNIDAZOLE IV 500 MG/100ML* 500 MG/100 ML BAG IVPB SCH ×3 (03:29→19:17)
[2017-01-26] MEDS: Heparin VIAL(*) 5000 UNITS/ML VIAL (FIVE THOUSAND) SUBCUT SCH ×3 (05:48→21:41)
[2017-01-26] MEDS ORDERED: Vancomycin Trough Check NOTE FOLLOW UP ONE ×2 (07:30→09:00)
[2017-01-26 07:40] LABS: Hematocrit 27 % (42-52); Hemoglobin 8.9 g/dl (14.0-18.0); Mean Corpuscular HGB Conc 33 g/dl (31-36); Mean Corpuscular Hemoglobin 28 pg (27-31); Mean Corpuscular Volume 86 fL (80-94); Mean Platelet Volume 9 um3 (7.4-10.4); Red Cell Distribution Width 16 % (10.5-15); White Blood Count 13.5 10^3/ul (3.5-10.8)
[2017-01-26 07:51] LABS: Albumin 2.1 g/dL (3.2-5.2); BUN/Creatinine Ratio 17.9 (8-20); C Reactive Protein 27.69 mg/L (< 5.00); Calcium 8.4 mg/dL (8.6-10.3); EGFR African American 184.4 (>60); EGFR Non-African American 143.4 (>60); Globulin 3.3 g/dL (2-4); Potassium 4.6 mmol/L (3.5-5.0); Total Bilirubin 0.3 mg/dL (0.2-1.0); Total Protein 5.4 g/dL (6.4-8.9)
[2017-01-26] MEDS: Insulin LISPRO* 1 UNITS UNIT SUBCUT SCH ×3 (07:54→17:08)
[2017-01-26 08:14] LABS: Add Diff/Slide Review? Slide Review Added; Comments Flag Yes
[2017-01-26 08:28] LABS: Vancomycin Trough 20.2 mcg/mL
[2017-01-26] MEDS: Aspirin Low Dose CHEW TAB* 81 MG PO SCH (09:01)
[2017-01-26] MEDS: NS 0.9% 1000 ML* 1,000 ML IV SCH (09:01)
[2017-01-26 11:59] LABS: Erythrocyte Sed Rate 105 mm/Hr (0-40)
--- NOTE | 2017-01-26 14:07 | PN ---
Subjective Date of Service: 01/26/17 Interval History: HOSPITALIST PROGRESS NOTE Patient seen and examined at bedside. Offers no complaints, tolerating diet. Family History: Unchanged from Admission Social History: Unchanged from Admission Past Medical History: Unchanged from Admission Objective Active Medications: Acetaminophen (Tylenol Tab*) 650 mg PO Q4H PRN PRN Reason: TEMP GREATER THAN 101.5 F Aspirin (Aspirin Low Dose Tab*) 81 mg PO DAILY [facility] Last Admin: 01/26/17 09:01 Dose: 81 mg Dextrose (D50w Syringe 50 Ml*) 12.5 gm IV PUSH .FOR FS < 60 - SS PRN PRN Reason: FS < 60 Heparin Sodium (Porcine) (Heparin Vial(*)) 5,000 units SUBCUT Q8HR [facility] Last Admin: 01/26/17 05:48 Dose: 5,000 units Metronidazole/Sodium Chloride (Flagyl 500 Mg Ivpb*) 500 mg in 100 mls @ 100 mls /hr IVPB Q8H [facility] Last Admin: 01/26/17 11:31 Dose: 100 mls/hr Ceftriaxone Sodium 2 gm/ (Sodium Chloride) 100 mls @ 200 mls/hr IVPB Q24H [facility] Last Admin: 01/26/17 12:51 Dose: 200 mls/hr Sodium Chloride (Ns 0.9% 1000 Ml*) 1,000 mls @ 100 mls/hr IV PER RATE [facility] Last Admin: 01/26/17 09:01 Dose: 100 mls/hr Vancomycin HCl 750 mg/ Sodium (Chloride) 250 mls @ 166.667 mls/hr IVPB Q12HR [facility] Insulin Human Lispro (Humalog*) 0 - 10 units SUBCUT AC [facility] PRN Reason: Protocol Last Admin: 01/26/17 12:04 Dose: 2 units Pharmacy Consult (Vancomycin Per Pharmacy*) 1 note FOLLOW UP . PRN PRN Reason: PER PROTOCOL Pharmacy Profile Note (Vancomycin Trough Check) 1 note FOLLOW UP 0900 ONE Stop: 01/29/17 09:01 Vital Signs 01/26/17 01/26/17 01/26/17 07:17 07:20 11:36 Temperature 98.9 F Pulse Rate 108 Respiratory 20 20 Rate Blood Pressure 121/79 (mmHg) O2 Sat by Pulse 92 85 92 Oximetry Oxygen Devices in Use Now: Nasal Cannula Appearance: Elderly male lying in bed in NAD. Eyes: No Scleral Icterus Ears/Nose/Mouth/Throat: Mucous Membranes Moist Neck: Trachea Midline Respiratory: Symmetrical Chest Expansion and Respiratory Effort, Clear to Auscultation Cardiovascular: RRR - Normal S1 and S2 Abdominal: NL Sounds; No Tenderness; No Distention Neurological: - - Alert and awake Lines/Tubes/Other Access: Clean, Dry and Intact Peripheral IV Nutrition: Taking PO's Result Diagrams: 01/26/17 07:14 01/26/17 07:28 Assess/Plan/Problems-Billing Assessment: Mr. Ramirez is a 71yo M with PMH of type 2 DM, HTN, HLD, CVA, left maxilla mass who presented to ED with weakness and altered MS, found to be dehydrated and hypernatremic. - Patient Problems (1) Severe sepsis Comment: - Patient met sepsis criteria on admission with leukocytosis and tachycardia, and also had BHAVIK. - Sources are sacral decubitus infection and UTI. (2) Decubitus ulcer Comment: - Much worse than on his prior admission. - Surgery consult appreciated. - Continue Vancomycin, Ceftriaxone, and Metronidazole. - CT abd/pelvis reviewed - suspect underlying osteomyelitis. (3) Bacteroides fragilis infection Comment: - Blood culture growing B. fragilis. - Continue Metronidazole and repeat blood cultures. - ID consult appreciated. (4) UTI (urinary tract infection) Comment: - Patient was diagnosed with urinary retention on his prior admission, likely secondary to neurogenic bladder and he was discharged with a Ortiz. - Unclear when Ortiz was changed. - Culture growing enterococcus. - Continue broad spectrum abx. (5) Troponin level elevated Comment: - Suspect demand ischemia in the setting of sepsis. (6) BHAVIK (acute kidney injury) Comment: - Secondary to dehydration - resolved. (7) Diabetes Comment: - Continue Lispro SS. (8) DVT prophylaxis Comment: - SQ heparin. (9) Full code status (10) Discharge planning issues Comment: - I suspect this patient is not safe to return home. He was discharge home to the care of his SO on 12/14/16. Recommendation at that time was to d/c to SNF, but SO was adamant she would be able to care for him at home. - He returns a month later with similar presentation of dehydration, hypernatremia, sepsis, with significant worsening of his decubiti. ED notes describe strong odor of urine and unkempt appearance. - SW consult requested. - D/w his SO - she is in agreement with SNF placement and chooses [facility]. Status and Disposition: Inpatient.
[2017-01-27] MEDS: NS 0.9% 1000 ML* 1,000 ML IV SCH ×2 (01:03→15:37)
[2017-01-27] MEDS: metroNIDAZOLE IV 500 MG/100ML* 500 MG/100 ML BAG IVPB SCH ×3 (02:56→19:15)
[2017-01-27] MEDS: Heparin VIAL(*) 5000 UNITS/ML VIAL (FIVE THOUSAND) SUBCUT SCH ×3 (06:12→21:03)
[2017-01-27] MEDS: Vancomycin(*) 750 MG in NS 0.9% 250 ML* 250 ML IVPB SCH ×2 (08:29→21:03)
[2017-01-27] MEDS: Insulin LISPRO* 1 UNITS UNIT SUBCUT SCH ×3 (08:29→17:25)
[2017-01-27] MEDS: Aspirin Low Dose CHEW TAB* 81 MG PO SCH (08:31)
--- NOTE | 2017-01-27 12:55 | SURGPN ---
Brief Operative Note - Surgery Procedures: Procedures OPERATIVE REPORT PRE-OP:Sacral Decubitus POST-OP: Same PROCEDURE: Debridement at bedside of sacral decubitus SURGEON: MD Wilma ANESTHESIA: None ASST: None IVF: none EBL:min SPECIMEN: none DRAIN: none WOUND CLASS: 4 COMPLICATIONS: none
--- NOTE | 2017-01-27 14:02 | PN ---
Subjective Date of Service: 01/27/17 Interval History: HOSPITALIST PROGRESS NOTE Patient seen and examined at bedside. Denies pain at this time. Family History: Unchanged from Admission Social History: Unchanged from Admission Past Medical History: Unchanged from Admission Objective Active Medications: Acetaminophen (Tylenol Tab*) 650 mg PO Q4H PRN PRN Reason: TEMP GREATER THAN 101.5 F Aspirin (Aspirin Low Dose Tab*) 81 mg PO DAILY [facility] Last Admin: 01/27/17 08:31 Dose: 81 mg Dextrose (D50w Syringe 50 Ml*) 12.5 gm IV PUSH .FOR FS < 60 - SS PRN PRN Reason: FS < 60 Heparin Sodium (Porcine) (Heparin Vial(*)) 5,000 units SUBCUT Q8HR [facility] Last Admin: 01/27/17 06:12 Dose: 5,000 units Metronidazole/Sodium Chloride (Flagyl 500 Mg Ivpb*) 500 mg in 100 mls @ 100 mls /hr IVPB Q8H [facility] Last Admin: 01/27/17 10:43 Dose: 100 mls/hr Ceftriaxone Sodium 2 gm/ (Sodium Chloride) 100 mls @ 200 mls/hr IVPB Q24H [facility] Last Admin: 01/27/17 12:21 Dose: 200 mls/hr Sodium Chloride (Ns 0.9% 1000 Ml*) 1,000 mls @ 100 mls/hr IV PER RATE [facility] Last Admin: 01/27/17 01:03 Dose: 100 mls/hr Vancomycin HCl 750 mg/ Sodium (Chloride) 250 mls @ 166.667 mls/hr IVPB Q12HR [facility] Last Admin: 01/27/17 08:29 Dose: 166.667 mls/hr Insulin Human Lispro (Humalog*) 0 - 10 units SUBCUT AC [facility] PRN Reason: Protocol Last Admin: 01/27/17 12:20 Dose: 2 units Pharmacy Consult (Vancomycin Per Pharmacy*) 1 note FOLLOW UP . PRN PRN Reason: PER PROTOCOL Pharmacy Profile Note (Vancomycin Trough Check) 1 note FOLLOW UP 0900 ONE Stop: 01/28/17 08:31 Vital Signs 01/26/17 01/26/17 01/26/17 15:36 15:52 20:00 Temperature 99.5 F Pulse Rate 104 Respiratory 20 20 Rate Blood Pressure 95/63 (mmHg) O2 Sat by Pulse 100 100 Oximetry 01/27/17 01/27/17 01/27/17 01:12 07:16 07:50 Temperature 98.9 F 99.0 F Pulse Rate 94 100 Respiratory 16 16 18 Rate Blood Pressure 113/74 103/72 (mmHg) O2 Sat by Pulse 98 100 100 Oximetry Oxygen Devices in Use Now: Nasal Cannula Appearance: Elderly male lying in bed in NAD. Eyes: No Scleral Icterus Ears/Nose/Mouth/Throat: Mucous Membranes Moist Neck: Trachea Midline Respiratory: Symmetrical Chest Expansion and Respiratory Effort, Clear to Auscultation Cardiovascular: RRR - Normal S1 and S2 Abdominal: NL Sounds; No Tenderness; No Distention Neurological: - - Alert and awake Lines/Tubes/Other Access: Clean, Dry and Intact Peripheral IV Nutrition: Taking PO's Result Diagrams: 01/26/17 07:14 01/26/17 07:28 Assess/Plan/Problems-Billing Assessment: Mr. Ramirez is a 71yo M with PMH of type 2 DM, HTN, HLD, CVA, left maxilla mass who presented to ED with weakness and altered MS, found to be dehydrated and hypernatremic. - Patient Problems (1) Severe sepsis Comment: - Patient met sepsis criteria on admission with leukocytosis and tachycardia, and also had BHAVIK. - Sources are sacral decubitus infection and UTI. (2) Decubitus ulcer Comment: - Much worse than on his prior admission. - Surgery consult appreciated. - Continue Vancomycin, Ceftriaxone, and Metronidazole. - CT abd/pelvis reviewed - suspect underlying osteomyelitis. - Surgery input appreciated - another bedside debridment performed. No plans to go to OR at this time. (3) Bacteroides fragilis infection Comment: - Blood culture growing B. fragilis. - Continue Metronidazole. Repeat blood cultures show no growth. - ID consult appreciated. (4) UTI (urinary tract infection) Comment: - Patient was diagnosed with urinary retention on his prior admission, likely secondary to neurogenic bladder and he was discharged with a Ortiz. - Unclear when Ortiz was changed. - Culture growing enterococcus. - Continue broad spectrum abx. (5) Troponin level elevated Comment: - Suspect demand ischemia in the setting of sepsis. (6) BHAVIK (acute kidney injury) Comment: - Secondary to dehydration - resolved. (7) Diabetes Comment: - Continue Lispro SS. (8) DVT prophylaxis Comment: - SQ heparin. (9) Full code status Status and Disposition: Inpatient. Plan is to discharge to [facility] when stable.
[2017-01-28] MEDS: metroNIDAZOLE IV 500 MG/100ML* 500 MG/100 ML BAG IVPB SCH ×3 (03:30→20:56)
--- NOTE | 2017-01-28 05:24 | OP ---
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 ANESTHESIA: None. PRE-OP DIAGNOSIS: Sacral decubiti. POST-OP DIAGNOSIS: Sacral decubiti. OPERATIVE PROCEDURE: Bedside debridement of sacral decubiti. ESTIMATED BLOOD LOSS: Minimal. SPECIMEN: None. WOUND CLASSIFICATION: 4. COMPLICATIONS: None. BRIEF HISTORY: Mr. Dar Ramirez is a 71-year-old gentleman with multiple medical issues who will be admitted to a nursing facility after he had been admitted with apparent urosepsis and noted to have a large sacral decubiti with drainage and concern for an infection. On exam, he had a rather large open decubiti extending down to bone and fascia at the midline with the skin bridge extending to the left with several ulcers overlying the sacroiliac prominence as well as the ischium; however, these were noted only to be dry eschar and unstageable. A CT scan of the pelvis was obtained, which should concern for probable osteomyelitis, but no other extension of the ulcers significantly inferiorly nor were there undrained abscesses. There is a skin bridge of the necrotic skin as well as underlying necrotic subcutaneous fat and needs to be debrided to improve on the wound care. The procedure was discussed with the patient's caregiver who is his healthcare proxy, Domitila, and consent was obtained. DESCRIPTION OF PROCEDURE: The patient was placed in the left lateral decubitus position at the bedside. Time-out verification was completed and the check list was marked off. This was signed. The skin bridge at the midline was excised sharply with minimal bleeding as this was dry, hard, and necrotic skin. There was some undermining of some necrotic fat, which was excised sharply using both scissors and a 15 blade knife. There appeared to be no extension inferiorly, but some undermining laterally to the right where there was necrotic skin overlying sacroiliac prominence, and this was excised to connect 2 of the tunnel. The areas of the necrotic fat and subcutaneous tissue were excised. Bleeding was controlled with pressure. The wound was then packed with a moist 4-inch Kerlix and covered with a dry occlusive dressing. The plan will be to start dressing care daily and follow up in the [facility]ound [facility] after the patient is discharged and for consideration of a VAC device. He has already been placed on antibiotics. [id number]/[facility] #: [id number] MTDD
[2017-01-28] MEDS: Heparin VIAL(*) 5000 UNITS/ML VIAL (FIVE THOUSAND) SUBCUT SCH ×3 (06:14→20:56)
[2017-01-28] MEDS: NS 0.9% 1000 ML* 1,000 ML IV SCH (06:47)
[2017-01-28 08:21] LABS: Hematocrit 27 % (42-52); Hemoglobin 8.7 g/dl (14.0-18.0); Mean Corpuscular HGB Conc 32 g/dl (31-36); Mean Corpuscular Hemoglobin 28 pg (27-31); Mean Corpuscular Volume 86 fL (80-94); Mean Platelet Volume 8 um3 (7.4-10.4); Red Blood Count 3.18 10^6/ul (4.0-5.4); Red Cell Distribution Width 16 % (10.5-15); White Blood Count 9.6 10^3/ul (3.5-10.8)
[2017-01-28] MEDS ORDERED: Vancomycin Trough Check NOTE FOLLOW UP ONE (08:30)
[2017-01-28 08:45] LABS: BUN/Creatinine Ratio 16.7 (8-20); C Reactive Protein 13.95 mg/L (< 5.00); Calcium 8.2 mg/dL (8.6-10.3); EGFR African American 192.3 (>60); EGFR Non-African American 149.6 (>60)
[2017-01-28] MEDS: Insulin LISPRO* 1 UNITS UNIT SUBCUT SCH ×3 (09:02→18:10)
[2017-01-28] MEDS: Aspirin Low Dose CHEW TAB* 81 MG PO SCH (09:02)
[2017-01-28 09:22] LABS: Erythrocyte Sed Rate 95 mm/Hr (0-40)
[2017-01-28] MEDS: Vancomycin(*) 750 MG in NS 0.9% 250 ML* 250 ML IVPB SCH ×2 (10:00→20:55)
--- NOTE | 2017-01-28 10:03 | PN ---
Progress Note - Progress Note SOAP: Subjective: DOS: 01/28/17 CC: decubitus ulcer HPI: 71 yo man with immobility now with large decubitus ulcer with foul drainage. Drainage has resolved with antibiotics and debridement. He denies pain but cannot otherwise participate in the history. RN notes no rash or diarrhea. Objective: [] Vital Signs Temp 37.3 C 01/27/17 23:15 Pulse 100 01/27/17 23:15 Resp 20 01/27/17 23:15 BP 99/60 01/27/17 23:15 Pulse Ox 100 01/27/17 23:15 Intake & Output 01/27/17 01/28/17 01/28/17 18:59 06:59 18:59 Intake Total 2340 1669 Output Total 1100 2300 Balance 1240 -631 Intake: IV Fluids 10 1204 ABX - CEFTRIAXONE 10 NS (0.9%) 1204 IVPB 860 465 ABX - CEFTRIAXONE 100 ABX - FLAGYL 100 215 ABX - VANCOMYCIN 250 250 NS (0.9%) 410 Oral 1470 0 Output: Urine 225 Ortiz 875 2300 Other: Date of Last Bowel 01/27/17 Movement # Bowel Movements 1 0 Estimated Stool Amount Medium Gen:awake, no distress Neuro: follows some commands, answers yes or no HEENT:PERRL, MMM Neck:Supple Heart:RRR no murmur Lungs:CTA BL Abd:+BS NTND soft Skin: no rash MSK: large soft tissue defect, sacral area with no surrounding erythema Laboratory Results - last 24 hr 01/27/17 01/27/17 01/28/17 11:25 16:35 07:53 WBC RBC Hgb Hct MCV MCH MCHC RDW Plt Count MPV Neut % (Auto) Lymph % (Auto) [place] % (Auto) Eos % (Auto) Baso % (Auto) Absolute Neuts (auto) Absolute Lymphs (auto) Absolute Monos (auto) Absolute Eos (auto) Absolute Basos (auto) Absolute Nucleated RBC Nucleated RBC % ESR Sodium Potassium Chloride Carbon Dioxide Anion Gap BUN Creatinine Est GFR ( Amer) Est GFR (Non-Af Amer) BUN/Creatinine Ratio Glucose POC Glucose (mg/dL) 152 H 137 H 144 H Calcium C-Reactive Protein Vancomycin Trough 01/28/17 01/28/17 01/28/17 08:09 08:09 08:09 WBC 9.6 RBC 3.18 L Hgb 8.7 L Hct 27 L MCV 86 MCH 28 MCHC 32 RDW 16 H Plt Count 263 MPV 8 Neut % (Auto) 79.8 Lymph % (Auto) 12.8 L [place] % (Auto) 5.8 Eos % (Auto) 1.3 Baso % (Auto) 0.3 Absolute Neuts (auto) 7.6 Absolute Lymphs (auto) 1.2 Absolute Monos (auto) 0.6 Absolute Eos (auto) 0.1 Absolute Basos (auto) 0 Absolute Nucleated RBC 0.01 Nucleated RBC % 0.1 ESR 95 H Sodium 140 Potassium 4.0 Chloride 108 Carbon Dioxide 28 Anion Gap 4 BUN 9 Creatinine 0.54 L Est GFR ( Amer) 192.3 Est GFR (Non-Af Amer) 149.6 BUN/Creatinine Ratio 16.7 Glucose 116 H POC Glucose (mg/dL) Calcium 8.2 L C-Reactive Protein 13.95 H Vancomycin Trough 11.7 Microbiology 01/22/17 19:50 Aerobic Blood Culture - Final Blood Venous No Growth Day 5 Anaerobic Blood Culture - Final Bacteroides Fragilis Blood Culture - Final 01/25/17 07:43 Aerobic Blood Culture - Preliminary Blood Venous No Growth Day 3 Anaerobic Blood Culture - Preliminary No Growth Day 3 Blood Culture - Final 01/25/17 07:39 Aerobic Blood Culture - Preliminary Blood Venous No Growth Day 3 Anaerobic Blood Culture - Preliminary No Growth Day 3 Blood Culture - Final 01/22/17 12:35 Aerobic Blood Culture - Final Blood Venous No Growth Day 5 Anaerobic Blood Culture - Final Eubacterium Species Blood Culture - Final Assessment: 1. 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 Immobility and low serum albumin 3. Insulin dependent diabetes 4. Fever, resolved, due to wound infection and resolved catheter related UTI Plan: 1. DC IV antibiotics, for discharge: flagyl 500 mg po bid x 2 weeks, doxycycline 100 mg po bid for [address] Dinh
--- NOTE | 2017-01-28 18:18 | PN ---
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 Very poor historian. C /o pain in his back decub when repositioned Family History: Unchanged from Admission Social History: Unchanged from Admission Past Medical History: Unchanged from Admission Objective Active Medications: Acetaminophen (Tylenol Tab*) 650 mg PO Q4H PRN PRN Reason: TEMP GREATER THAN 101.5 F Aspirin (Aspirin Low Dose Tab*) 81 mg PO DAILY [facility] 234 BEDS AT [facility] Last Admin: 01/28/17 09:02 Dose: 81 mg Dextrose (D50w Syringe 50 Ml*) 12.5 gm IV PUSH .FOR FS < 60 - SS PRN PRN Reason: FS < 60 Heparin Sodium (Porcine) (Heparin Vial(*)) 5,000 units SUBCUT Q8HR [facility] 234 BEDS AT THE [facility] Last Admin: 01/28/17 14:31 Dose: 5,000 units Metronidazole/Sodium Chloride (Flagyl 500 Mg Ivpb*) 500 mg in 100 mls @ 100 mls /hr IVPB Q8H [facility] 234 BEDS AT THE [facility] Last Admin: 01/28/17 12:32 Dose: 100 mls/hr Ceftriaxone Sodium 2 gm/ (Sodium Chloride) 100 mls @ 200 mls/hr IVPB Q24H [facility]S [facility]CLUDE 234 BEDS AT THE [facility] Last Admin: 01/28/17 12:32 Dose: 200 mls/hr Sodium Chloride (Ns 0.9% 1000 Ml*) 1,000 mls @ 100 mls/hr IV PER RATE [facility]CLUDE 234 BEDS AT THE [facility] Last Admin: 01/28/17 06:47 Dose: 100 mls/hr Vancomycin HCl 750 mg/ Sodium (Chloride) 250 mls @ 166.667 mls/hr IVPB Q12HR [facility]S [facility]CLUDE 234 BEDS AT THE [facility] Last Admin: 01/28/17 10:00 Dose: 166.667 mls/hr Insulin Human Lispro (Humalog*) 0 - 10 units SUBCUT AC [facility]S [facility]CLUDE 234 BEDS AT THE [facility] PRN Reason: Protocol Last Admin: 01/28/17 18:10 Dose: 2 units Pharmacy Consult (Vancomycin Per Pharmacy*) 1 note FOLLOW UP . PRN PRN Reason: PER PROTOCOL Vital Signs 01/27/17 01/27/17 01/28/17 20:00 23:15 07:36 Temperature 99.1 F Pulse Rate 100 117 Respiratory 18 20 Rate Blood Pressure 99/60 111/61 (mmHg) O2 Sat by Pulse 100 98 Oximetry 01/28/17 01/28/17 01/28/17 08:00 13:45 15:50 Temperature 98.2 F 98.5 F Pulse Rate 114 112 Respiratory 22 20 20 Rate Blood Pressure 114/86 114/73 (mmHg) O2 Sat by Pulse 98 100 100 Oximetry Oxygen Devices in Use Now: Nasal Cannula - 2 L Appearance: 71 yo M in nAd, oriented to location, self Eyes: No Scleral Icterus, PERRLA Ears/Nose/Mouth/Throat: NL Teeth, Lips, Gums, Mucous Membranes Moist Neck: NL Appearance and Movements; NL JVP, Trachea Midline Respiratory: Symmetrical Chest Expansion and Respiratory Effort, Clear to Auscultation Cardiovascular: NL Sounds; No Murmurs; No JVD, RRR Abdominal: NL Sounds; No Tenderness; No Distention, No Hepatosplenomegaly Lymphatic: No Cervical Adenopathy Extremities: No Clubbing, Cyanosis Skin: No Nodules or Sclerosis, - - extensive sacral decub at 12 cm in diam, 5 cm deep, unstageable. B/l hip decubs-unsteageable at 5 cm in diam each, covered with necrotic skin. Necrotic, black, foul smelling decubs on b/l heels and left foot-plantar aspect Result Diagrams: 01/28/17 08:09 01/28/17 08:09 Additional Lab and Data: Lab Results 01/22/17 01/22/17 01/22/17 Range/Units 12:35 12:35 12:35 WBC 17.4 H (3.5-10.8) 10^3/ul RBC 4.54 (4.0-5.4) 10^6/ul Hgb 12.6 L (14.0-18.0) g/dl Hct 40 L (42-52) % MCV 88 (80-94) fL MCH 28 (27-31) pg MCHC 32 (31-36) g/dl RDW 17 H (10.5-15) % Plt Count 321 (150-450) 10^3/ul MPV 9 (7.4-10.4) um3 Neut % (Auto) 88.8 H (38-83) % Lymph % (Auto) 7.5 L (25-47) % [place] % (Auto) 3.6 (1-9) % Eos % (Auto) 0 (0-6) % Baso % (Auto) 0.1 (0-2) % Absolute Neuts (auto) 15.4 H (1.5-7.7) 10^3/ul Absolute Lymphs (auto) 1.3 (1.0-4.8) 10^3/ul Absolute Monos (auto) 0.6 (0-0.8) 10^3/ul Absolute Eos (auto) 0 (0-0.6) 10^3/ul Absolute Basos (auto) 0 (0-0.2) 10^3/ul Absolute Nucleated RBC 0.03 10^3/ul Nucleated RBC % 0.2 INR (Anticoag Therapy) 1.30 H (0.89-1.11) APTT 29.6 (26.0-36.3) seconds Sodium 150 H (133-145) mmol/L Potassium 4.6 (3.5-5.0) mmol/L Chloride 117 H (101-111) mmol/L Carbon Dioxide 20 L (22-32) mmol/L Anion Gap 13 H (2-11) mmol/L BUN 52 H (6-24) mg/dL Creatinine 1.74 H (0.67-1.17) mg/dL Est GFR ( Amer) 49.8 (>60) Est GFR (Non-Af Amer) 38.8 (>60) BUN/Creatinine Ratio 29.9 H (8-20) Glucose 192 H (70-100) mg/dL Calcium 9.6 (8.6-10.3) mg/dL Total Bilirubin 0.40 (0.2-1.0) mg/dL AST 39 (13-39) U/L ALT 118 H (7-52) U/L Alkaline Phosphatase 95 (34-104) U/L Troponin I 0.20 H* (<0.04) ng/mL Total Protein 7.1 (6.4-8.9) g/dL Albumin 2.7 L (3.2-5.2) g/dL Globulin 4.4 H (2-4) g/dL Albumin/Globulin Ratio 0.6 L (1-3) Microbiology and Other Data: Microbiology 01/22/17 15:20 Skin and Soft Tissue MRSA/MSSA (PCR - Final Buttock Mrsa Positive S.aureus Positive Gram Stain - Final Wound Culture - Preliminary Bacteroides Fragilis Assess/Plan/Problems-Billing Assessment: Mr. Ramirez is a 71yo M with PMH of type 2 DM, HTN, HLD, CVA, left maxilla mass who presented to ED with weakness and altered MS, found to be dehydrated and hypernatremic. - Patient Problems (1) Severe sepsis Comment: - Patient met sepsis criteria on admission with leukocytosis and tachycardia, and also had BHAVIK. - Sources are sacral decubitus infection and UTI. (2) Decubitus ulcer Comment: - Much worse than on his prior admission. - Surgery consult appreciated.Dbrided by Dr. Dillon on 01/27/17 - Continue Vancomycin, Ceftriaxone, and Metronidazole. - CT abd/pelvis reviewed - suspect underlying osteomyelitis. - once discharged can go home on PO antibiotics. (3) Bacteroides fragilis infection Comment: - Blood culture growing B. fragilis. - Continue Metronidazole. Repeat blood cultures show no growth. - ID consult appreciated. (4) UTI (urinary tract infection) Comment: - Patient was diagnosed with urinary retention on his prior admission, likely secondary to neurogenic bladder and he was discharged with a Ortiz. - Unclear when Ortiz was changed. - Culture growing enterococcus. - Continue broad spectrum abx. (5) Troponin level elevated Comment: - Suspect demand ischemia in the setting of sepsis. (6) BHAVIK (acute kidney injury) Comment: - Secondary to dehydration - resolved. (7) Diabetes Comment: - Continue Lispro SS. (8) DVT prophylaxis Comment: - SQ heparin. (9) Full code status Comment: Palliative care consult ordered. Pt has a in [facility]. Spoke with daughter: Dr. Ramirez from [place]([phone]) who will come to [facility] tomorrow. KHARI asked to assist to determine HCP/surrogate. SO- Domitila made aware of hospice consult and agrees, but very anxious and almost histerical on the phone. Status and Disposition: Inpatient. Plan is to discharge to [facility] when surrogacy/palliative care consult completed
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
[2017-01-29] MEDS: metroNIDAZOLE IV 500 MG/100ML* 500 MG/100 ML BAG IVPB SCH ×2 (02:57→11:29)
[2017-01-29] MEDS: Heparin VIAL(*) 5000 UNITS/ML VIAL (FIVE THOUSAND) SUBCUT SCH ×3 (05:02→21:26)
[2017-01-29] MEDS: Aspirin Low Dose CHEW TAB* 81 MG PO SCH (08:42)
[2017-01-29] MEDS: Vancomycin(*) 750 MG in NS 0.9% 250 ML* 250 ML IVPB SCH (08:42)
[2017-01-29] MEDS: Insulin LISPRO* 1 UNITS UNIT SUBCUT SCH ×3 (08:42→17:46)
[2017-01-29 18:01] LABS: Folate 15.76 ng/mL (>3.99)
[2017-01-29] MEDS ORDERED: oxyCODONE/Acetamin 5/325 MG* TAB PO PRN (18:39)
[2017-01-29] MEDS: DOXYcycline CAP(*) 100 MG PO SCH (21:26)
[2017-01-29] MEDS: metroNIDAZOLE TAB* 250 MG PO SCH (21:27)
[2017-01-30] MEDS: Heparin VIAL(*) 5000 UNITS/ML VIAL (FIVE THOUSAND) SUBCUT SCH (05:40)
[2017-01-30] MEDS ORDERED: Ferrous Sulfate TAB* 325 MG PO SCH (09:00)
[2017-01-30] MEDS: Aspirin Low Dose CHEW TAB* 81 MG PO SCH (09:50)
[2017-01-30] MEDS: metroNIDAZOLE TAB* 250 MG PO SCH (09:50)
[2017-01-30] MEDS: DOXYcycline CAP(*) 100 MG PO SCH (09:50)
[2017-01-30] MEDS: Insulin LISPRO* 1 UNITS UNIT SUBCUT SCH (09:51)
[2017-01-30 12:01] VITALS: BP 122/71
--- NOTE | 2017-01-30 14:27 | DS ---
DISCHARGE SUMMARY: DATE OF ADMISSION: 01/22/17 DATE OF DISCHARGE: 01/30/17 DISPOSITION: [facility]. PRIMARY CARE PROVIDER: Destiney Can MD. DISCHARGE DIAGNOSES: 1. Severe sepsis with infected decubitus ulcer in the sacrum that was MRSA positive as well as Bacteroides fragilis UTI infection. 2. Acute kidney injury due to the above. 3. Hypernatremia due to dehydration. 4. Ortiz associated UTI with Bacteroides fragilis 5. Dehydration, resolved. 6. Malnutrition with prealbumin of 7 on 01/22/17 which is severe and chronic. 7. Sacral decubitus ulcer, status post debridement by Dr. Dillon during the hospital stay. 8. Mild elevated troponin level, likely due to demand ischemia in the setting of severe sepsis. 9. Anemia of chronic disease. SECONDARY DIAGNOSES: 1. Debility and deconditioning with underlying dementia. 2. Hypertension. 3. Hyperlipidemia. 4. Diabetes, type 2. 5. History of chronic Ortiz for urinary retention. This started in December 2015. 6. 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 Cesar. MEDICATIONS AT DISCHARGE: Include: 1. Doxycycline 100 mg p.o. b.i.d. for a total of 8 weeks, which is 56 days. 2. Metronidazole 500 mg b.i.d. p.o. for 14 days total. 3. Acetaminophen 650 mg every 6 hours p.r.n. 4. Ferrous sulfate 325 mg daily. 5. Insulin Lispro sliding scale. 6. MiraLax 17 g b.i.d., hold for loose stools. 7. Metformin 500 mg b.i.d. 8. Percocet 1 tablet every 4 hours p.r.n. LABORATORY DATA AND STUDIES PERFORMED DURING THE HOSPITAL STAY: Included: On 01/28/2017, white cell count of 9.6, hemoglobin of 8.7, hematocrit of 27, platelets of 263. Sodium was 140, potassium 4.0, chloride 108, carbon dioxide 28, BUN 9, creatinine 0.54. C-reactive protein of 13 on that day. Patient's folate level was 15 and vitamin B12 level was 1000. Prealbumin level of 7, iron level of 30, TIBC level of 130, percent iron saturation 23. ESR of 95 on 01/28/17. Urinalysis grossly normal with microbiology studies positive for Bacteroides fragilis. Wound culture from the buttock, positive for MRSA, Enterococcus faecalis, Bacteroides fragilis. Urine culture on 01/22/17 positive for Staphylococcus simulans and Enterococcus faecalis. Abdomen and pelvic CT of 01/24/17: Impression: "Markedly thickened urinary bladder wall with collapsed urinary bladder. Thickening of the wall was also noted. Right-sided sacral decubitus which extends to the last sacral segment with suggestion of erosion of the posterior elements of the spinal sacral segment and the possibility of osteomyelitis has been included, although the sacral decubitus , however are not significantly changed since December 2016. Brain CT on 01/22/17: Impression: "Cortical atrophy with chronic microvascular ischemic changes. No acute findings. Expansile left maxillary antral mass requires correlation with clinical etiology and history. A prior CT head not been performed." Chest x-ray obtained on 01/22/17. Impression "Linear atelectasis of the left lower lung." Patient's troponin peaked at admission to the level of 0.2. The patient's sodium level at admission was 150. The patient's creatinine at admission was 1.74. CONSULTATIONS DURING THE HOSPITAL STAY: Included, 1. Dr. Castro of Palliative Care. 2. Dr. Dasilva of Infectious Diseases. 3. Dr. Dillon, Surgery. HOSPITALIZATION COURSE: Dar Ramirez is a 71-year-old male with a history of chronic deconditioning and debilitation. Patient is not ambulatory and having been for several months. He was diagnosed with urinary retention and Ortiz was placed in December 2016. In December 2016, patient was in rehab and was admitted briefly. After his admission, his girlfriend decided to take him home. After the patient was home for approximately a month, came into the hospital with the girlfriend complaining the patient is not acting right. The patient was noted to be markedly hypernatremic and dehydrated with acute renal failure, marked leukocytosis. He was noted to have abnormal urinalysis and multiple decubitus including a large decubitus ulcer in the sacrum. Patient was diagnosed with severe sepsis and treated with broad-spectrum antibiotics. Wound cultures were positive for MRSA and other bacteria as mentioned above. His initial urine culture showed 2 bacteria, but after the Ortiz was exchanged, the remaining culture was positive for Bacteroides fragilis. Please note the patient's Ortiz was exchanged on 01/22/17 in the ID. Due to extensive sacral decubitus as well as bilateral feet wounds and hip wounds, Surgery was contacted and asked to see the patient for evaluation. On 01/27/17 Dr. Dillon performed a bedside debridement of the sacral wound. Wound dressings were recommended afterwards as per Dr. Dillon and were included in the discharge package. They include wet to dry 4 inch Kerlix gauze packing to entire ulcer daily, cover with 4 x 4 gauze and the Mepilex dressing. Mepilex dressing is also recommended to be placed daily to the remaining decubitus in patient's feet and bilateral hips. In regard to patient's UTI and MRA and sacral wound infection, Dr. Dasilva saw the patient in consultation. Patient was placed on broad-spectrum antibiotics and continued until the day prior to his discharge to halfway, at which point after Dr. Dasilva's recommendation, patient was placed on metronidazole and doxycycline. He is to continue metronidazole for 2 weeks and doxycycline for a total of [address] of the abdomen and pelvis and also of sacrum revealed mostly likely osteomyelitis, which at this point is chronic of the sacrum. The patient also diagnosed with catheter related UTI with Bacteroides fragilis as mentioned above. Patient was also diagnosed with anemia of chronic disease and placed iron supplement. He had acute kidney injury at admission due to severe sepsis that resolved after initial rehydration. Hyponatremia also resolved after initial rehydration. He was noted to be malnourished with prealbumin of 7 and Nutrition consult was ordered. He also was noted to have dysphagia and passed swallow eval for thin liquid diet and pureed diet, which was continued during this hospital stay. His troponin was mildly elevated, but he complained of no chest pain and it was most likely related to demand ischemia. From the records from 2013, the patient requested that his girlfriend be his surrogate. Nevertheless, after I spoke with patient's girlfriend during the hospital stay, I recommended Palliative Care consult. Patient's girlfriend apparently contacted the patient's family, which the attending physicians were not aware of. Patient has 2 daughters and 3 sons and they were up in [place]. In addition to that, his girlfriend, Domitila lives locally. After family discussion with the attending and social media specialist involvement, the Palliative care doctor, Dr. Castro involvement, the patient is continued to be full code. Nevertheless, patient' girlfriend, Domitila rescinded the rights to surrogacy and asked the family to "take care of it." At this point, the family will proceed with formal legal request for surrogacy and guardianship, but for the time being they are persons to notify about the patient's health issues and further legal matters. The two daughters who are to be persons of contact is Dr. Iman Ramirez who lives in [place], her phone number is [phone] and Gi Villegas from [place], [place], the phone number is [phone]. PHYSICAL EXAM AT THE TIME OF DISCHARGE: Blood pressure 111/63, heart rate of 88 and regular, respiratory rate of 20, oxygen saturation 91% on 2 L of oxygen nasal cannula, temperature 99.4. General: Patient is a pleasant 71-year-old male who has very limited understanding and very limited verbalization. He has trouble following simple commands. He responds yes to most of the questions and appears not to understand most of the questions. I suspect this is due to moderate to severe dementia. He is alert to his name. He is able to give me his daughters names. He does not know his age, but he is aware he is in the hospital. HEENT: Head is atraumatic, normocephalic. Eyes: Pupils are equal and reactive to light and accommodation. Mucosa moist. Neck: Supple. No JVD. No bruits bilaterally. Cardiovascular: Regular rate and rhythm. No murmur, no click. Respiratory: Clear to auscultation. Abdomen: Soft, nontender. Bowel sounds present in all 4 quadrants. Extremities: There is trace pedal edema bilaterally. Pulses are present 2+ bilaterally. There is no clubbing or cyanosis. Neuro Evaluation: The patient has no aphasia. Limited orientation as mentioned above. Upper extremities are symmetrically weak at 4/ 5. He has what appears to be mild flattening of the left nasolabial fold which is chronic. Bilateral lower extremities, patient is able to move his toes somewhat, but otherwise his motor strength is 3/5 bilateral legs. Skin: Extensive sacral decubitus of approximately 12 cm in diameter, 5 cm deep that had been packed. The decubitus is unstageable at this point. There are unstageable bilateral hip decubitus at 5 cm diameter each covered with slough. There is also some necrotic, black, foul smelling decubitus on bilateral heels and left foot plantar aspect. There are multiple decubitus there left foot as well as the right. There is also small pretibial decubitus on the left leg at approximately 1 cm deep at 1 cm. DISCHARGE INSTRUCTIONS: At discharge, patient is recommended to, 1. Repeat CMP, CRP, and CBCs drawn while on p.o. antibiotics. 2. Follow up with halfway physician in approximately 3 to 4 days. 3. Follow up with Dr. Dasilva in approximately 2 weeks. 4. Follow up with [facility] within the next week. 5. To have a scheduled new appointment with the Urology in regards to patient' s urinary retention and Ortiz catheter for the past month. Please note this is a short summary of the patient's long and complicated hospitalization. Please refer to further medical records for details. TIME SPENT: Approximately 60 minutes was spent on the patient's discharge. CC: Destiney Can MD; Murali Cesar MD/ENT; Narendra Dasilva MD/Infectious diseases; Alia Castro DO/Palliative care; Maninder Dillon MD/Surgery; [facility]; [facility]. [id number]/[facility] #: [id number] MTDD
== END 2017-01-30 12:10 | disposition home health service (06) | DRG 853 ==
LOC: ED 12:20 → MEDTELE 15:05
PROVIDERS: ADMIT Hospitalist; ATTEND Internal Medicine
PROC: 0T2BX0Z Change Drainage Device in Bladder, External Approach (ICD-10-PCS; 2017-01-22)
PROC: 0JB70ZZ Excision of Back Subcutaneous Tissue and Fascia, Open Approach (ICD-10-PCS; principal; 2017-01-27)
DX: A41.9 Sepsis, unspecified organism (principal); E43 Unspecified severe protein-calorie malnutrition; N17.9 Acute kidney failure, unspecified; L89.154 Pressure ulcer of sacral region, stage 4; E87.0 Hyperosmolality and hypernatremia; L89.624 Pressure ulcer of left heel, stage 4; L89.614 Pressure ulcer of right heel, stage 4; L89.212 Pressure ulcer of right hip, stage 2; I24.8 Other forms of acute ischemic heart disease; R13.10 Dysphagia, unspecified; D49.2 Neoplasm of unspecified behavior of bone, soft tissue, and skin; T83.511A Infection and inflammatory reaction due to indwelling urethral catheter, initial encounter; M46.28 Osteomyelitis of vertebra, sacral and sacrococcygeal region; N39.0 Urinary tract infection, site not specified; R65.20 Severe sepsis without septic shock; E78.5 Hyperlipidemia, unspecified; I10 Essential (primary) hypertension; N31.9 Neuromuscular dysfunction of bladder, unspecified; R54 Age-related physical debility; E11.622 Type 2 diabetes mellitus with other skin ulcer; E86.0 Dehydration; B95.2 Enterococcus as the cause of diseases classified elsewhere; E11.69 Type 2 diabetes mellitus with other specified complication; B95.62 Methicillin resistant Staphylococcus aureus infection as the cause of diseases classified elsewhere; B95.7 Other staphylococcus as the cause of diseases classified elsewhere; Y73.1 Therapeutic (nonsurgical) and rehabilitative gastroenterology and urology devices associated with adverse incidents; D63.8 Anemia in other chronic diseases classified elsewhere; L89.310 Pressure ulcer of right buttock, unstageable; L89.220 Pressure ulcer of left hip, unstageable; Z68.28 Body mass index [BMI] 28.0-28.9, adult; I69.920 Aphasia following unspecified cerebrovascular disease; Y92.9 Unspecified place or not applicable; Z79.4 Long term (current) use of insulin
CPT/HCPCS: 36415; 70450; 71010; 74176; 80048; 80053; 80202; 81003; 81015; 82607; 82746; 83540; 83550; 83605; 84134; 84484; 85025; 85610; 85652; 85730; 86140; 87040; 87070; 87076; 87077; 87086; 87181; 87185; 87186; 87205; 87640; 87641; 93005; A9270-GY; J0692; J0696; J1644; J2543; J3370; J3480

== ENCOUNTER 2017-02-04 16:37 | Inpatient (IN) | payer MEDICARE ==
[2017-02-04 17:31] LABS: Hematocrit 33 % (42-52); Hemoglobin 10.5 g/dl (14.0-18.0); Mean Corpuscular HGB Conc 32 g/dl (31-36); Mean Corpuscular Hemoglobin 28 pg (27-31); Mean Corpuscular Volume 88 fL (80-94); Mean Platelet Volume 7 um3 (7.4-10.4); Red Blood Count 3.75 10^6/ul (4.0-5.4); Red Cell Distribution Width 19 % (10.5-15); White Blood Count 10.7 10^3/ul (3.5-10.8)
--- NOTE | 2017-02-04 17:46 | RAD ---
HISTORY: Altered mental status COMPARISONS: January 22, 2017 VIEWS:1: Single frontal portable view of the chest at 5:30 PM FINDINGS: LINES AND TUBES: None. CARDIOMEDIASTINAL SILHOUETTE: The aorta is tortuous. The cardiomediastinal silhouette is otherwise normal for portable technique. PLEURA: The costophrenic angles are sharp. No pleural abnormalities are noted. LUNG PARENCHYMA: There is hyperinflation. ABDOMEN: The upper abdomen is clear. There is no subphrenic gas. BONES AND SOFT TISSUES: No bone or soft tissue abnormalities are noted. IMPRESSION: NO ACTIVE CARDIOPULMONARY DISEASE.
[2017-02-04 17:47] LABS: Albumin 2.9 g/dL (3.2-5.2); BUN/Creatinine Ratio 17.3 (8-20); Calcium 9.3 mg/dL (8.6-10.3); EGFR African American 131.7 (>60); EGFR Non-African American 102.4 (>60); Globulin 3.7 g/dL (2-4); Potassium 4.6 mmol/L (3.5-5.0); Total Bilirubin 0.3 mg/dL (0.2-1.0); Total Protein 6.6 g/dL (6.4-8.9)
[2017-02-04 17:49] LABS: Troponin I 0.01 ng/mL (<0.04)
[2017-02-04] MEDS ORDERED: NS 0.9% 1000 ML* 2,000 ML IV ONE (18:05)
[2017-02-04] MEDS ORDERED: cefTRIAXone(*) 1 GM in NS 0.9% 50 ML* 50 ML IVPB ONE (18:05)
[2017-02-04] MEDS ORDERED: Vancomycin(*) 1,000 MG in NS 0.9% 250 ML* 250 ML IVPB ONE (18:15)
[2017-02-04 18:23] LABS: Urine Bacteria Absent (Absent); Urine Bilirubin Negative (Negative); Urine Glucose Negative (Negative); Urine Nitrite Negative (Negative)
[2017-02-04] MEDS ORDERED: NS 0.9% 250 ML* 250 ML ONE (18:42)
[2017-02-04] MEDS ORDERED: Ondansetron INJ* 2 MG/ML VIAL IV PRN (18:51)
[2017-02-04] MEDS ORDERED: NS 0.9% 1000 ML* 1,000 ML IV ONE (18:51)
[2017-02-04] MEDS ORDERED: Dextrose 50% Syringe 50 ML* 25 GM/50 ML SYRINGE IV PUSH PRN (18:51)
[2017-02-04] MEDS: NS 0.9% 1000 ML* 1,000 ML IV SCH (22:14)
[2017-02-04] MEDS ORDERED: Vancomycin per Pharmacy* NOTE FOLLOW UP PRN (22:15)
--- NOTE | 2017-02-04 22:15 | HP ---
HISTORY AND PHYSICAL: DATE OF ADMISSION: 02/04/17 PRIMARY CARE PROVIDER: Mallorie Roth. ATTENDING PHYSICIAN WHILE IN THE HOSPITAL: Dr. Kylah Story * (report dictated by Phillip Burton NP). CHIEF COMPLAINT: Altered mental status. HISTORY OF PRESENT ILLNESS: I would preface this report by saying that the patient has a significant amount of underlying dementia. He is essentially nonverbal at baseline, most of the H and P is obtained from discussion with the nurses and review of [facility] staff notes. The patient re-presents today. He was recently just here for prolonged hospitalization for sepsis of unclear etiology, who was sent back to [facility] on p.o. antibiotics; however, it was noted that over the last 24 hours, the patient has progressive change in mental status. He has become more nonverbal. He was more lethargic and he was noted to have a fever. There was concern and he was sent to the hospital. He carries a history of chronic osteomyelitis with the deep sacral wound, history of hypertension, hyperlipidemia, CVA, diabetes, he has a neurogenic bladder, he has a maxillary mass that is quite extensive and is inoperable given his overall state of health. There have been no reports of vomiting or diarrhea. There have been no reports of any change in medications, but there was concern that he was becoming septic again because he was noted to be febrile, he was tachycardic, and he was sent to the emergency department today to be evaluated. PAST MEDICAL HISTORY: Significant for: 1. Hypertension. 2. Hyperlipidemia. 3. CVA. 4. Diabetes. 5. Neurogenic bladder. 6. Maxillary mass. PAST SURGICAL HISTORY: Unable to be obtained. MEDICATIONS: Home meds according to the list that we are able to obtain include : 1. Oxycodone 1 tablet p.o. four times a day as needed. 2. Flagyl 500 mg p.o. b.i.d. 3. Metformin 500 mg p.o. b.i.d. 4. MiraLAX 17 g p.o. daily. 5. Lispro 4 units subcu t.i.d. with meals. 6. Ferrous sulfate 325 p.o. daily. 7. Doxycycline 100 mg p.o. b.i.d. 8. Tylenol 650 mg p.o. every 4 hours as needed. ALLERGIES TO MEDICATIONS: Include no known drug allergies. FAMILY HISTORY: Unable to be obtained, currently with the patient. SOCIAL HISTORY: There are no reports of alcohol use or smoking. Surrogate decision making is his significant other, Domitila. He lives at the [facility]. REVIEW OF SYSTEMS: Unable to be obtained. PHYSICAL EXAMINATION GENERAL: At this time, Mr. Ramirez is a 71-year-old male patient. He is a chronically ill-appearing male patient. He does not appear to be in any acute distress. He is sitting in the ER stretcher. He is awake, but he is alert to himself only. VITAL SIGNS: Reveal blood pressure 104/64, pulse of 120, respirations 18, O2 sat 98%, temperature here was 98.4. There was a reported fever, but I do not see it documented in the reports. HEENT: Head is atraumatic, normocephalic. Eyes: Sclerae were anicteric and not pale. Pupils are equal and reactive to light. Throat: Oral mucosa appears to be moist. No oropharyngeal erythema. NECK: Supple. LUNGS: Clear to auscultation bilaterally. No wheezes, rales, or rhonchi. HEART: Sounds S1, S2. He is tachycardic. ABDOMEN: Soft, flat, nontender. Bowel sounds present. EXTREMITIES: Pulses 2+ throughout. He has no peripheral edema. NEUROLOGIC: He is essentially nonverbal. He will open his eyes, he will say yes to his name only. He has no gross obvious focal deficits. SKIN: He has multiple decubital ulcers. He has 2 unstageable ulcers on the bilateral heels. He has a rather large 2 sacral ulcers, one is stage IV and then has a second one on the right buttocks, which appears to be larger and appears to be possibly communicating with the other sacral wound as well. They are covered with Mepilex. There is no obvious discharge or drainage. DIAGNOSTIC STUDIES/LAB DATA: His labs today revealed WBC of 10.7, RBC of 3.75 , hemoglobin 10.5, hematocrit of 33, platelet count 416. INR 1.10, PTT of 33. Sodium 136, potassium is 4.6, chloride of 104, bicarb 24, BUN 13, creatinine 0.75, glucose 126, his lactate was 3.6, calcium 9.3. ALT 58, alk phos 105. Troponin 0. Urine showed 2+ leukocyte esterase, 2+ wbc's, 3+ rbc's. He had an EKG obtained today, which revealed to be sinus tachycardia, with a rate of 124. No ST elevation or T-wave inversions. It was reviewed to the EKG from January, it appears to be similar. He had a chest x-ray obtained today, which revealed no active cardiopulmonary disease. Old medical records were reviewed. ASSESSMENT AND PLAN: Mr. Ramirez is a 71-year-old male patient with multiple medical problems coming into the ER today with complaints of altered mental status. On evaluation, there was concern for sepsis as there was documented reported fever from [facility]. He will be admitted under inpatient status for: 1. Sepsis. Etiology is unclear, it certainly could be from his wound, it does not appear to be from his urine at this time, but I think at this point we will go ahead and put him on vanco, cefepime, and Flagyl. In addition to this, we will get a Wound Care consult. I also think that given his overall decline in health, Palliative Care consult is appropriate. We will go ahead and get this. We will give him 3 L of fluid upfront, panculture him, I will repeat the lactic acid after the 3 L to make sure it is trending down. If it is trending up, we may need to consider transfer to the ICU, but at this point, again we will follow this closely. He does not appear to be in septic shock at this point. 2. Hypertension. We will hold his meds as prescribed. 3. Hyperlipidemia. Continue his current medical regimen. 4. History of cerebrovascular accident. Continue with secondary prevention. 5. Diabetes. Continue with his lispro sliding scale. 6. Neurogenic bladder. He has a chronic catheter. 7. Maxillary mass. Follow with the primary. 8. DVT prophylaxis. He is high risk, he will be placed on heparin subcu. 9. Code status. Full code. 10. Fluids, electrolytes, and nutrition. He can have a consistent carb diet. TIME SPENT: On the admission approximately 70 minutes, greater than half the time was spent [id number] with the patient obtaining my history and physical; other half the time was spent going over the plan of care with the patient and implementing the plan of care. I did discuss the plan of care with my attending, Dr. Story; she is in agreement. PHILLIP BURTON NP CC: Mallorie Roth * [id number]/[facility] #: [id number] ATUL
[2017-02-04] MEDS: Cefepime(*) 2 GM in NS 0.9% 50 ML* 50 ML IVPB SCH (22:34)
[2017-02-04] MEDS: Heparin VIAL(*) 5000 UNITS/ML VIAL (FIVE THOUSAND) SUBCUT SCH (22:55)
[2017-02-04] MEDS: metroNIDAZOLE IV 500 MG/100ML* 500 MG/100 ML BAG IVPB SCH (23:43)
--- NOTE | 2017-02-04 23:45 | ED ---
Denice Olsen Anna, scribed for Kaden Padilla MD on 02/04/17 at 1753 . Altered Mental Status - HPI Summary HPI Summary: Patient is a 71 y/o male coming to [facility] presenting with AMS that began at 1600 this afternoon. Per the staff at his living facility, the patient was reported to have increased lethargy, rapid HR, and AMS. He was discharged from [facility] three days ago after sepsis of unknown origin. LEVEL 5 CAVEAT UNABLE TO OBTAIN FULL HISTORY DUE TO ALTERED MENTAL STATUS. Patient medications have been reviewed this visit. - History Of Current Complaint Chief Complaint: EDAltMentalStatus Stated Complaint: AMS Time Seen by Provider: 02/04/17 17:07 Hx Obtained From: Other: - Staff from [facility] Hx From Patient Unobtainable Due To: Altered Mental Status - LEVEL 5 CAVEAT UNABLE TO OBTAIN FULL HISTORY DUE TO ALTERED MENTAL STATUS. Onset/Duration: Unknown Character: Lethargy - Allergies/Home Medications Allergies/Adverse Reactions: Allergies Allergy/AdvReac Type Severity Reaction Status Date / Time No Known Allergies Allergy Verified 05/15/16 16:01 Home Medications: Home Medications Insulin Lispro [Humalog] 4 unit SC TID WITH MEALS 02/04/17 [History Confirmed ] Polyethylene Glycol 3350* [Miralax*] 17 gm PO DAILY 02/04/17 [History Confirmed 02/04/17] oxyCODONE/Acetamin 5/325 MG* [Percocet 5/325 TAB*] 1 tab PO QID PRN MDD 6 tabs 02/04/17 [History Confirmed 02/04/17] PMH/Surg Hx/FS Hx/Imm Hx Endocrine/Hematology History: Reports: Hx Diabetes Denies: Hx Anticoagulant Therapy, Hx Thyroid Disease Cardiovascular History: Reports: Hx Hypercholesterolemia, Hx Hypertension Denies: Hx Pacemaker/ICD Respiratory History: Denies: Hx Asthma, Hx Chronic Obstructive Pulmonary Disease (COPD) History: Reports: Other Problems/Disorders - chronic ocasio Denies: Hx Renal Disease Sensory History: Denies: Hx Contacts or Glasses, Hx Deafness, Hx Hearing Aid, Hx Hearing Problem Opthamlomology History: Denies: Hx Contacts or Glasses Neurological History: Denies: Hx Dementia, Hx Seizures Psychiatric History: Denies: Hx Eating Disorder, Hx Panic Disorder, Hx of Violent Episodes Against Others, Hx Substance Abuse - Cancer History Cancer Type, Location and Year: 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 Infectious Disease History: No Infectious Disease History: Denies: Hx Hepatitis, Hx Human Immunodeficiency Virus (HIV), Traveled Outside the [place] in Last 30 Days - Family History Known Family History: Positive: Unknown - LEVEL 5 CAVEAT secondary to AMS - Social History Lives: At [facility] Alcohol Use: None Hx Substance Use: No Substance Use Type: Reports: None Hx Tobacco Use: Yes Smoking Status (MU): Former Smoker Type: Cigarettes Amount Used/How Often: 1 a day Length of Time of Smoking/Using Tobacco: 30 Have You Smoked in the Last Year: Yes Review of Systems - ROS Summary Review of Systems Summary: LEVEL 5 CAVEAT UNABLE TO OBTAIN FULL HISTORY DUE TO ALTERED MENTAL STATUS. Constitutional: Other - lethargy Cardiovascular: Other - tachycardia Neurological: Other - AMS All Other Systems Reviewed And Are Negative: No Physical Exam Triage Information Reviewed: Yes Vital Signs On Initial Exam: Initial Vitals Temp Pulse Resp BP Pulse Ox 98.4 F 131 22 108/66 99 02/04/17 16:38 02/04/17 16:38 02/04/17 16:38 02/04/17 16:38 02/04/17 16:38 Vital Signs Reviewed: Yes Appearance: Positive: Well-Appearing, No Pain Distress Skin: Positive: Warm, Skin Color Reflects Adequate Perfusion, Dry Head/Face: Positive: Normal Head/Face Inspection Eyes: Positive: EOMI, Other: - Pupils 2mm ENT: Positive: Other - oral mucosa dry Neck: Positive: Supple, Nontender Respiratory/Lung Sounds: Positive: Breath Sounds Present, Rhonchi - on the left side Cardiovascular: Positive: Tachycardia Abdomen Description: Positive: Nontender, Soft Bowel Sounds: Positive: Present Musculoskeletal: Positive: Normal, Strength/ROM Intact Neurological: Positive: Normal, Sensory/Motor Intact Psychiatric: Positive: Affect/Mood Appropriate - Pat Coma Scale Coma Scale Total: 13 Diagnostics - Vital Signs Vital Signs Temp Pulse Resp BP Pulse Ox 02/04/17 17:22 97 02/04/17 17:00 20 104/74 02/04/17 16:49 131 20 97 02/04/17 16:47 103/71 02/04/17 16:39 98.4 F 130 22 108/66 98 02/04/17 16:38 98.4 F 131 22 108/66 99 - Laboratory Lab Results: Lab Results 02/04/17 02/04/17 02/04/17 Range/Units 17:18 17:18 17:18 WBC 10.7 (3.5-10.8) 10^3/ul RBC 3.75 L (4.0-5.4) 10^6/ul Hgb 10.5 L (14.0-18.0) g/dl Hct 33 L (42-52) % MCV 88 (80-94) fL MCH 28 (27-31) pg MCHC 32 (31-36) g/dl RDW 19 H (10.5-15) % Plt Count 416 (150-450) 10^3/ul MPV 7 L (7.4-10.4) um3 Neut % (Auto) 79.3 (38-83) % Lymph % (Auto) 13.4 L (25-47) % [place] % (Auto) 6.4 (1-9) % Eos % (Auto) 0.7 (0-6) % Baso % (Auto) 0.2 (0-2) % Absolute Neuts (auto) 8.5 H (1.5-7.7) 10^3/ul Absolute Lymphs (auto) 1.4 (1.0-4.8) 10^3/ul Absolute Monos (auto) 0.7 (0-0.8) 10^3/ul Absolute Eos (auto) 0.1 (0-0.6) 10^3/ul Absolute Basos (auto) 0 (0-0.2) 10^3/ul Absolute Nucleated RBC 0.01 10^3/ul Nucleated RBC % 0.1 INR (Anticoag Therapy) 1.10 (0.89-1.11) APTT 33.0 (26.0-36.3) seconds Sodium 136 (133-145) mmol/L Potassium 4.6 (3.5-5.0) mmol/L Chloride 104 (101-111) mmol/L Carbon Dioxide 24 (22-32) mmol/L Anion Gap 8 (2-11) mmol/L BUN 13 (6-24) mg/dL Creatinine 0.75 (0.67-1.17) mg/dL Est GFR ( Amer) 131.7 (>60) Est GFR (Non-Af Amer) 102.4 (>60) BUN/Creatinine Ratio 17.3 (8-20) Glucose 126 H (70-100) mg/dL Calcium 9.3 (8.6-10.3) mg/dL Total Bilirubin 0.30 (0.2-1.0) mg/dL AST 28 (13-39) U/L ALT 58 H (7-52) U/L Alkaline Phosphatase 105 H (34-104) U/L Troponin I 0.01 (<0.04) ng/mL Total Protein 6.6 (6.4-8.9) g/dL Albumin 2.9 L (3.2-5.2) g/dL Globulin 3.7 (2-4) g/dL Albumin/Globulin Ratio 0.8 L (1-3) Result Diagrams: 02/04/17 17:18 02/04/17 17:18 Lab Statement: Any lab studies that have been ordered have been reviewed, and results considered in the medical decision making process. - Radiology CXR Xray Interpretation: No Acute Changes Radiology Interpretation Completed By: Radiologist - IMPRESSION: NO ACTIVE CARDIOPULMONARY DISEASE. - EKG 1808 Cardiac Rate: Tachycardia - 124 bpm EKG Rhythm: Sinus Tachycardia ST Segment: Normal Ectopy: None Altered Mental Statu Course/Dx - Course Course Of Treatment: NO CRITICAL CARE TIME Assessment/Plan: ADMIT HOSPITALIST GUARDED - Diagnoses Discharge Diagnoses: Sepsis - Provider Notifications Discussed Care Of Patient With: Phillip Burton (Hospitalist SIDDHARTHA) at 1815. Agrees to accept patient for admission. Discharge - Discharge Plan Condition: Guarded Disposition: ADMITTED TO [facility] documentation as recorded by the Denice mendoza Anna accurately reflects the service I personally performed and the decisions made by , Kaden Padilla MD.
[2017-02-05] MEDS: Vancomycin(*) 750 MG in NS 0.9% 250 ML* 250 ML IVPB SCH ×4 (01:17→23:16)
[2017-02-05 02:16] LABS: Urine Bacteria Absent (Absent); Urine Bilirubin Negative (Negative); Urine Glucose Negative (Negative); Urine Nitrite Negative (Negative)
[2017-02-05] MEDS: metroNIDAZOLE IV 500 MG/100ML* 500 MG/100 ML BAG IVPB SCH ×3 (05:06→21:33)
[2017-02-05] MEDS: Heparin VIAL(*) 5000 UNITS/ML VIAL (FIVE THOUSAND) SUBCUT SCH ×3 (05:43→21:36)
[2017-02-05 05:47] LABS: Hematocrit 28 % (42-52); Hemoglobin 8.9 g/dl (14.0-18.0); Mean Corpuscular HGB Conc 33 g/dl (31-36); Mean Corpuscular Hemoglobin 29 pg (27-31); Mean Corpuscular Volume 88 fL (80-94); Mean Platelet Volume 8 um3 (7.4-10.4); Red Blood Count 3.12 10^6/ul (4.0-5.4); Red Cell Distribution Width 20 % (10.5-15); White Blood Count 8.2 10^3/ul (3.5-10.8)
[2017-02-05 06:01] LABS: Calcium 8.6 mg/dL (8.6-10.3); EGFR African American 170.3 (>60); EGFR Non-African American 132.4 (>60); Potassium 3.8 mmol/L (3.5-5.0)
[2017-02-05] MEDS: Ferrous Sulfate TAB* 325 MG PO SCH (08:05)
[2017-02-05] MEDS: Polyethylene Glycol 3350* 17 GM PACKET PO SCH (08:05)
[2017-02-05] MEDS: Insulin LISPRO* 1 UNITS UNIT SUBCUT SCH ×4 (08:11→17:32)
[2017-02-05] MEDS: Cefepime(*) 2 GM in NS 0.9% 50 ML* 50 ML IVPB SCH ×2 (10:27→20:25)
[2017-02-05] MEDS: NS 0.9% 1000 ML* 1,000 ML IV SCH (11:33)
--- NOTE | 2017-02-05 14:58 | PN ---
Subjective Date of Service: 02/05/17 Interval History: HOSPITALIST PROGRESS NOTE Patient seen and examined at bedside. Offers no complaints at this time. Family History: Unchanged from Admission Social History: Unchanged from Admission Past Medical History: Unchanged from Admission Objective Active Medications: Acetaminophen (Tylenol Tab*) 650 mg PO Q4H PRN PRN Reason: FEVER/PAIN Dextrose (D50w Syringe 50 Ml*) 12.5 gm IV PUSH .FOR FS < 60 - SS PRN PRN Reason: FS < 60 Ferrous Sulfate (Ferrous Sulfate Tab*) 325 mg PO DAILY [facility] Last Admin: 02/05/17 08:05 Dose: 325 mg Heparin Sodium (Porcine) (Heparin Vial(*)) 5,000 units SUBCUT Q8HR [facility] Last Admin: 02/05/17 13:43 Dose: 5,000 units Cefepime HCl 2 gm/ Sodium (Chloride) 50 mls @ 100 mls/hr IVPB Q12H [facility] Last Admin: 02/05/17 10:27 Dose: 100 mls/hr Sodium Chloride (Ns 0.9% 1000 Ml*) 1,000 mls @ 125 mls/hr IV PER RATE [facility] Stop: 02/06/17 02:59 Last Admin: 02/05/17 11:33 Dose: 125 mls/hr Vancomycin HCl 750 mg/ Sodium (Chloride) 250 mls @ 166.667 mls/hr IVPB Q8H [facility] PRN Reason: Protocol Last Admin: 02/05/17 08:05 Dose: 166.667 mls/hr Metronidazole/Sodium Chloride (Flagyl 500 Mg Ivpb*) 500 mg in 100 mls @ 100 mls /hr IVPB Q8H [facility] Last Admin: 02/05/17 13:43 Dose: 100 mls/hr Insulin Human Lispro (Humalog*) 0 units SUBCUT [facility] PRN Reason: Protocol Last Admin: 02/05/17 13:47 Dose: Not Given Ondansetron HCl (Zofran Inj*) 4 mg IV Q6H PRN PRN Reason: NAUSEA Pharmacy Consult (Vancomycin Per Pharmacy*) 1 note FOLLOW UP . PRN PRN Reason: PER PROTOCOL Pharmacy Profile Note (Vancomycin Trough Check) 1 note FOLLOW UP 1530 ONE Stop: 02/05/17 15:31 Polyethylene Glycol/Electrolytes (Miralax*) 17 gm PO DAILY [facility] Last Admin: 02/05/17 08:05 Dose: 17 gm Vital Signs 02/05/17 02/05/17 07:55 08:00 Temperature 98.2 F Pulse Rate 109 Respiratory 18 18 Rate Blood Pressure 145/63 (mmHg) O2 Sat by Pulse 100 100 Oximetry Oxygen Devices in Use Now: Nasal Cannula Appearance: Elderly male lying in bed in NAD. Eyes: No Scleral Icterus Ears/Nose/Mouth/Throat: Mucous Membranes Moist Neck: Trachea Midline Respiratory: Symmetrical Chest Expansion and Respiratory Effort, Clear to Auscultation Cardiovascular: NL Sounds; No Murmurs; No JVD, RRR Abdominal: NL Sounds; No Tenderness; No Distention Neurological: - - AAOx2 (self and place) Lines/Tubes/Other Access: Clean, Dry and Intact Peripheral IV Nutrition: Taking PO's Result Diagrams: 02/05/17 05:13 02/05/17 05:13 Assess/Plan/Problems-Billing Assessment: Mr. Ramirez is a 71yo M with PMH of type 2 DM, HTN, HLD, CVA, left maxilla mass, recent admission for severe sepsis, hypernatremia, decubitus infection with Bacteroides bacteremia, presents from [facility], with altered MS and fever. - Patient Problems (1) Sepsis Comment: - Met sepsis criteria on admission with fever and tachycardia. - Source is likely chronic ostemyelitis. CxR shows no infiltrate and UA is negative. (2) Chronic osteomyelitis Comment: - Continue Cefepime, Vanco, and Metronidazole. - Follow cultures. (3) Decubitus ulcer Comment: - Continue wet to dry dressing. - Wound consult requested. (4) HTN (hypertension) Comment: - Controlled off meds. (5) Diabetes Comment: - Continue Lispro SS. (6) DVT prophylaxis Comment: - SQ heparin. (7) Full code status Status and Disposition: Inpatient. Will contact HCP (daughter - Dorian [phone]) to discuss Palliative care/Hospice.
[2017-02-05] MEDS ORDERED: Vancomycin Trough Check NOTE FOLLOW UP ONE (15:30)
[2017-02-06] MEDS: metroNIDAZOLE IV 500 MG/100ML* 500 MG/100 ML BAG IVPB SCH ×3 (04:56→21:57)
[2017-02-06] MEDS: Heparin VIAL(*) 5000 UNITS/ML VIAL (FIVE THOUSAND) SUBCUT SCH ×3 (05:39→21:57)
[2017-02-06] MEDS: Vancomycin(*) 750 MG in NS 0.9% 250 ML* 250 ML IVPB SCH ×3 (07:36→23:24)
[2017-02-06] MEDS: Polyethylene Glycol 3350* 17 GM PACKET PO SCH (07:36)
[2017-02-06] MEDS: Ferrous Sulfate TAB* 325 MG PO SCH (07:36)
[2017-02-06 07:40] LABS: Hematocrit 28 % (42-52); Mean Corpuscular HGB Conc 32 g/dl (31-36); Mean Corpuscular Hemoglobin 28 pg (27-31); Mean Corpuscular Volume 88 fL (80-94); Mean Platelet Volume 7 um3 (7.4-10.4); Red Blood Count 3.17 10^6/ul (4.0-5.4); Red Cell Distribution Width 21 % (10.5-15)
[2017-02-06 07:56] LABS: BUN/Creatinine Ratio 16.7 (8-20); Calcium 8.7 mg/dL (8.6-10.3); EGFR African American 192.3 (>60); EGFR Non-African American 149.6 (>60); Potassium 3.7 mmol/L (3.5-5.0)
[2017-02-06] MEDS: Insulin LISPRO* 1 UNITS UNIT SUBCUT SCH ×3 (08:24→17:15)
[2017-02-06] MEDS: Cefepime(*) 2 GM in NS 0.9% 50 ML* 50 ML IVPB SCH ×2 (09:52→19:55)
[2017-02-06] MEDS: Morphine INJ* 2 MG/ML 1 ML SYRINGE IV SCH (11:13)
--- NOTE | 2017-02-06 13:48 | PN ---
Subjective Date of Service: 02/06/17 Interval History: HOSPITALIST PROGRESS NOTE Patient seen and examined at bedside. He offers no complaints today. Family History: Unchanged from Admission Social History: Unchanged from Admission Past Medical History: Unchanged from Admission Objective Active Medications: Acetaminophen (Tylenol Tab*) 650 mg PO Q4H PRN PRN Reason: FEVER/PAIN Dextrose (D50w Syringe 50 Ml*) 12.5 gm IV PUSH .FOR FS < 60 - SS PRN PRN Reason: FS < 60 Ferrous Sulfate (Ferrous Sulfate Tab*) 325 mg PO DAILY [facility] Last Admin: 02/06/17 07:36 Dose: 325 mg Heparin Sodium (Porcine) (Heparin Vial(*)) 5,000 units SUBCUT Q8HR [facility] Last Admin: 02/06/17 12:04 Dose: 5,000 units Cefepime HCl 2 gm/ Sodium (Chloride) 50 mls @ 100 mls/hr IVPB Q12H [facility] Last Admin: 02/06/17 09:52 Dose: 100 mls/hr Vancomycin HCl 750 mg/ Sodium (Chloride) 250 mls @ 166.667 mls/hr IVPB Q8H [facility] PRN Reason: Protocol Last Admin: 02/06/17 07:36 Dose: 166.667 mls/hr Metronidazole/Sodium Chloride (Flagyl 500 Mg Ivpb*) 500 mg in 100 mls @ 100 mls /hr IVPB Q8H [facility] Last Admin: 02/06/17 12:09 Dose: 100 mls/hr Insulin Human Lispro (Humalog*) 0 units SUBCUT AC [facility] PRN Reason: Protocol Last Admin: 02/06/17 12:03 Dose: 1 unit Morphine Sulfate (Morphine Inj (Syringe)*) 2 mg IV DAILY [facility] Last Admin: 02/06/17 11:13 Dose: 2 mg Ondansetron HCl (Zofran Inj*) 4 mg IV Q6H PRN PRN Reason: NAUSEA Pharmacy Consult (Vancomycin Per Pharmacy*) 1 note FOLLOW UP . PRN PRN Reason: PER PROTOCOL Pharmacy Profile Note (Vancomycin Trough Check) 1 note FOLLOW UP 0630 ONE Stop: 02/07/17 06:31 Polyethylene Glycol/Electrolytes (Miralax*) 17 gm PO DAILY [facility] Last Admin: 02/06/17 07:36 Dose: 17 gm Vital Signs 02/06/17 02/06/17 02/06/17 08:00 11:13 12:52 Temperature 97.4 F Pulse Rate 115 Respiratory 16 16 Rate Blood Pressure 130/86 (mmHg) O2 Sat by Pulse 96 Oximetry Oxygen Devices in Use Now: Nasal Cannula Appearance: Elderly male lying in bed in NAD. Eyes: No Scleral Icterus Ears/Nose/Mouth/Throat: Mucous Membranes Moist Neck: Trachea Midline Respiratory: Symmetrical Chest Expansion and Respiratory Effort, Clear to Auscultation Cardiovascular: NL Sounds; No Murmurs; No JVD, RRR Abdominal: NL Sounds; No Tenderness; No Distention Skin: - - Stage 4 sacral decubitus looks dry cleaner helper, with less necrosis, no foul smell. Packing has some green discharge Neurological: - - AAOx1 (self) Lines/Tubes/Other Access: Clean, Dry and Intact Peripheral IV Nutrition: Taking PO's Result Diagrams: 02/06/17 07:22 02/06/17 07:22 Assess/Plan/Problems-Billing Assessment: Mr. Ramirez is a 71yo M with PMH of type 2 DM, HTN, HLD, CVA, left maxilla mass, recent admission for severe sepsis, hypernatremia, decubitus infection with Bacteroides bacteremia, presents from [facility], with altered MS and fever. - Patient Problems (1) Sepsis Comment: - Met sepsis criteria on admission with fever and tachycardia. - Source is likely chronic ostemyelitis. CxR shows no infiltrate and UA is negative. (2) Chronic osteomyelitis Comment: - Continue Cefepime, Vanco, and Metronidazole. - Cultures so far show no growth. (3) Decubitus ulcer Comment: - Continue wet to dry dressing. - Wound consult requested. (4) HTN (hypertension) Comment: - Controlled off meds. (5) Diabetes Comment: - Continue Lispro SS. (6) DVT prophylaxis Comment: - SQ heparin. (7) Full code status Status and Disposition: Inpatient. Will contact HCP (daughter - Dorian [phone]) to discuss Palliative care/Hospice.
[2017-02-06] MEDS: Acetaminophen TAB* 325 MG PO PRN (16:08)
[2017-02-06] MEDS: NS 0.9% 1000 ML* 1,000 ML IV SCH (23:33)
--- NOTE | 2017-02-07 04:54 | TRS ---
TRANSFER SUMMARY: DATE OF ADMISSION: 02/04/17 DATE OF TRANSFER: To be defined. PRIMARY CARE PROVIDER: Destiney Can MD DISCHARGE DIAGNOSES: 1. Sepsis, likely secondary to chronic osteomyelitis and infected sacral decubiti. 2. Chronic urinary retention, likely secondary to neurogenic bladder with chronic Ortiz in place. SECONDARY DIAGNOSES: 1. Hypertension. 2. Hyperlipidemia. 3. Type 2 diabetes. 4. Possible history of cerebrovascular accident. 5. Left maxillary sinus pleomorphic adenoma. 6. Underlying dementia. 7. Severe protein-calorie malnutrition. 8. Anemia of chronic disease. HOSPITAL COURSE: Mr. Ramirez is a 71-year-old male with a past medical history as stated above that presented to the emergency room on February 04 sent from [facility] with altered mental status. The patient's history actually goes back to a couple of months ago when he was admitted to [facility] on December with weakness and altered mental status. At that time, he was found to have aspiration pneumonia with dehydration and severe hypernatremia. He had improvement of his symptoms and it was felt that he would benefit of prison placement for rehabilitation, but his girlfriend was adamant that he would not go a prison, so he was discharged home under her care. He returned to the emergency room in January with worsening lethargy and weakness. On that admission, he was found to have significant worsening of his sacral decubitus with significant infection and foul- smelling discharge. On that admission, he was septic with bacteroides septicemia. The wound culture also grew MRSA. He had acute kidney injury, hypernatremia, dehydration, and malnutrition. He was treated with IV antibiotics and at that point, a decision was made to transfer him to rehab and he went to [facility] on January 30. On February 04, he was referred back to the emergency room with once again lethargy and fever. At this point, the impression was that he was probably septic from his chronic sacral osteomyelitis and sacral decubitus infection. Chest x-ray showed no pulmonary disease. Urinalysis was negative. Blood cultures have yielded no growth so far. The patient's family is not local. They actually live in [place] and after discussing his care with his health care proxy (daughter, Gi) phone number [phone]. The family requested that the patient to be transferred to [facility]. I explained to the patient his poor prognosis and his chronic osteomyelitis is probably not curable as well as his stage IV sacral decubitus. The patient had been seen by palliative care on his prior admission in January and the plan was for him to be followed by hospice at the prison, but this has not happened and the family is not interested in pursuing a palliative route at this point. 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 As per records, the patient has known pleomorphic adenoma and he was seen by local ENT who recommended evaluation at tertiary center. The patient's girlfriend was planning to take him to [facility] in [place], but she was unable to as he was frequently admitted here and then too weak to travel, so this has not been addressed and he continues to progress. As per the patient's girlfriend, he had a stroke with residual left hemiparesis, but we do not have this workup in our system. He was admitted with weakness in August 2016, but at that time, an MRI of the brain showed diffuse involutional change with chronic small vessel ischemic changes, but no restricted diffusion to suggest acute infarct. One of the concern is that his neurological symptoms maybe associated with his maxillary tumor, but in any case at this point, the patient is not in condition to have surgery. On prior admission, the patient was found to have urinary tract infection and urinary retention. The impression is that he likely has neurogenic bladder associated with his type 2 diabetes and he has a chronic Ortiz in place. At this point, the patient is being treated with metronidazole, vancomycin, and cefepime and cultures done on this admission showed no growth, but blood cultures on his prior admission grew Bacteroides fragilis. Urine culture grew Enterococcus and wound cultures grew MRSA, Enterococcus faecalis, and bacteroids. At the time of this dictation, the patient is stable and we are awaiting for bed availability at [facility] as per family request. PHYSICAL EXAMINATION: Vital Signs: Temperature 99.5, heart rate is 112, respiratory rate is 24, oxygen saturation 100% on room air, and blood pressure is 128/82. General: The patient is a elderly male, lying in bed, in no acute distress. CVS: Normal S1, S2. Regular rate and rhythm. Chest: Breath sounds present bilaterally with no added sounds. Abdomen: Soft. Bowel sounds are present. Extremities: The patient has very dry skin with multiple scabbed lesions including on his heels. He has stage IV sacral decubitus with tunneled lesions communicating with the other lesions. He also has stage II decubitus to the ischial tuberosity. Neuro: He is alert, awake and oriented x1 to self only. He has left hemiparesis. DIET: Consistent carb diet with a pureed bumpy texture. ACTIVITY: As tolerated. DISPOSITION: [facility]. STATUS WHILE IN THE HOSPITAL: Inpatient. Please keep in mind, this is a summarized version of this patient's complex hospital course. If you need more information, please feel free to call me at or please obtain the full medical records. TIME SPENT: Approximately 50 minutes was spent to complete this discharge. CC: Dr. Can* [id number]/CPS #: [id number] MTDD
[2017-02-07] MEDS: Heparin VIAL(*) 5000 UNITS/ML VIAL (FIVE THOUSAND) SUBCUT SCH ×3 (05:08→21:20)
[2017-02-07] MEDS: metroNIDAZOLE IV 500 MG/100ML* 500 MG/100 ML BAG IVPB SCH ×3 (05:10→21:19)
[2017-02-07] MEDS ORDERED: Vancomycin Trough Check NOTE FOLLOW UP ONE (06:30)
[2017-02-07 07:10] LABS: EGFR African American 173.7 (>60)
[2017-02-07 07:27] LABS: Vancomycin Trough 20.3 mcg/mL
[2017-02-07] MEDS: Vancomycin(*) 750 MG in NS 0.9% 250 ML* 250 ML IVPB SCH ×2 (07:46→15:11)
[2017-02-07] MEDS: Insulin LISPRO* 1 UNITS UNIT SUBCUT SCH ×3 (07:47→17:25)
[2017-02-07] MEDS: Cefepime(*) 2 GM in NS 0.9% 50 ML* 50 ML IVPB SCH ×2 (08:23→19:54)
[2017-02-07] MEDS: Polyethylene Glycol 3350* 17 GM PACKET PO SCH (08:24)
[2017-02-07] MEDS: Ferrous Sulfate TAB* 325 MG PO SCH (08:24)
[2017-02-07] MEDS: Morphine INJ* 2 MG/ML 1 ML SYRINGE IV SCH (08:24)
[2017-02-07] MEDS: NS 0.9% 1000 ML* 1,000 ML IV SCH ×2 (08:26→19:56)
[2017-02-07] MEDS: Acetaminophen TAB* 325 MG PO PRN (11:12)
--- NOTE | 2017-02-07 12:12 | PN ---
Subjective Date of Service: 02/07/17 Interval History: HOSPITALIST PROGRESS NOTE Patient seen and examined at bedside. He offers no complaints today. Family History: Unchanged from Admission Social History: Unchanged from Admission Past Medical History: Unchanged from Admission Objective Active Medications: Acetaminophen (Tylenol Tab*) 650 mg PO Q4H PRN PRN Reason: FEVER/PAIN Last Admin: 02/07/17 11:12 Dose: 650 mg Dextrose (D50w Syringe 50 Ml*) 12.5 gm IV PUSH .FOR FS < 60 - SS PRN PRN Reason: FS < 60 Ferrous Sulfate (Ferrous Sulfate Tab*) 325 mg PO DAILY [facility] Last Admin: 02/07/17 08:24 Dose: 325 mg Heparin Sodium (Porcine) (Heparin Vial(*)) 5,000 units SUBCUT Q8HR [facility] Last Admin: 02/07/17 05:08 Dose: 5,000 units Cefepime HCl 2 gm/ Sodium (Chloride) 50 mls @ 100 mls/hr IVPB Q12H [facility] Last Admin: 02/07/17 08:23 Dose: 100 mls/hr Metronidazole/Sodium Chloride (Flagyl 500 Mg Ivpb*) 500 mg in 100 mls @ 100 mls /hr IVPB Q8H [facility] Last Admin: 02/07/17 05:10 Dose: 100 mls/hr Sodium Chloride (Ns 0.9% 1000 Ml*) 1,000 mls @ 100 mls/hr IV PER RATE [facility] Last Admin: 02/07/17 08:26 Dose: 100 mls/hr Vancomycin HCl 750 mg/ Sodium (Chloride) 250 mls @ 166.667 mls/hr IVPB Q12H [facility] Insulin Human Lispro (Humalog*) 0 units SUBCUT AC [facility] PRN Reason: Protocol Last Admin: 02/07/17 07:47 Dose: Not Given Morphine Sulfate (Morphine Inj (Syringe)*) 2 mg IV DAILY [facility] Last Admin: 02/07/17 08:24 Dose: 2 mg Ondansetron HCl (Zofran Inj*) 4 mg IV Q6H PRN PRN Reason: NAUSEA Pharmacy Consult (Vancomycin Per Pharmacy*) 1 note FOLLOW UP . PRN PRN Reason: PER PROTOCOL Pharmacy Profile Note (Vancomycin Trough Check) 1 note FOLLOW UP ONCE ONE Stop: 02/09/17 14:31 Polyethylene Glycol/Electrolytes (Miralax*) 17 gm PO DAILY [facility] Last Admin: 02/07/17 08:24 Dose: 17 gm Vital Signs 02/07/17 02/07/17 02/07/17 03:37 07:29 08:00 Temperature 98.3 F 98.6 F Pulse Rate 124 110 Respiratory 14 16 Rate Blood Pressure 125/75 116/71 (mmHg) O2 Sat by Pulse 100 100 Oximetry Oxygen Devices in Use Now: Nasal Cannula Appearance: Elderly male lying in bed in NAD. Eyes: No Scleral Icterus Ears/Nose/Mouth/Throat: Mucous Membranes Moist Neck: Trachea Midline Respiratory: Symmetrical Chest Expansion and Respiratory Effort, Clear to Auscultation Cardiovascular: RRR - Normal S1 and S2 Abdominal: NL Sounds; No Tenderness; No Distention Neurological: - - AAOx1 (self) Lines/Tubes/Other Access: Clean, Dry and Intact Peripheral IV Nutrition: Taking PO's Result Diagrams: 02/06/17 07:22 02/07/17 06:47 Assess/Plan/Problems-Billing Assessment: Mr. Ramirez is a 71yo M with PMH of type 2 DM, HTN, HLD, CVA, left maxilla mass, recent admission for severe sepsis, hypernatremia, decubitus infection with Bacteroides bacteremia, presents from [facility], with altered MS and fever. - Patient Problems (1) Sepsis Comment: - Met sepsis criteria on admission with fever and tachycardia. - Source is likely chronic ostemyelitis. CxR shows no infiltrate and UA is negative. (2) Chronic osteomyelitis Comment: - Continue Cefepime, Vanco, and Metronidazole. - Cultures so far show no growth, but wound had green secretions yesterday, suggestive of Pseudomonas - continue Cefepime and follow wound culture. (3) Decubitus ulcer Comment: - Continue wet to dry dressing. - Wound consult requested. (4) HTN (hypertension) Comment: - Controlled off meds. (5) Diabetes Comment: - Continue Lispro SS. (6) DVT prophylaxis Comment: - SQ heparin. (7) Full code status Status and Disposition: Inpatient. Case d/w Dr. Monroe at [facility] - they'll not offer a bed for transfer at this time. His case is closed. Called HCP (daughter - Gi [phone]) and left a message asking her to call me back so we can discuss family wishes.
[2017-02-07 15:37] LABS: Albumin 2.5 g/dL (3.2-5.2); BUN/Creatinine Ratio 16.7 (8-20); C Reactive Protein 9.46 mg/L (< 5.00); Calcium 8.8 mg/dL (8.6-10.3); EGFR African American 192.3 (>60); EGFR Non-African American 149.6 (>60); Globulin 3.6 g/dL (2-4); Potassium 4.8 mmol/L (3.5-5.0); Total Bilirubin 0.4 mg/dL (0.2-1.0); Total Protein 6.1 g/dL (6.4-8.9)
[2017-02-07 16:41] LABS: Hematocrit 28 % (42-52); Hemoglobin 8.9 g/dl (14.0-18.0); Mean Corpuscular HGB Conc 32 g/dl (31-36); Mean Corpuscular Hemoglobin 29 pg (27-31); Mean Corpuscular Volume 89 fL (80-94); Mean Platelet Volume 7 um3 (7.4-10.4); Red Blood Count 3.13 10^6/ul (4.0-5.4); Red Cell Distribution Width 21 % (10.5-15); White Blood Count 7.4 10^3/ul (3.5-10.8)
[2017-02-08] MEDS: Vancomycin(*) 750 MG in NS 0.9% 250 ML* 250 ML IVPB SCH ×2 (03:00→15:43)
[2017-02-08] MEDS: metroNIDAZOLE IV 500 MG/100ML* 500 MG/100 ML BAG IVPB SCH ×3 (04:39→22:09)
[2017-02-08] MEDS: Heparin VIAL(*) 5000 UNITS/ML VIAL (FIVE THOUSAND) SUBCUT SCH ×3 (06:31→22:07)
[2017-02-08 07:15] LABS: Add Diff/Slide Review? Manual Diff Added; Comments Flag Yes; Hematocrit 28 % (42-52); Mean Corpuscular HGB Conc 32 g/dl (31-36); Mean Corpuscular Hemoglobin 29 pg (27-31); Mean Corpuscular Volume 89 fL (80-94); Red Blood Count 3.13 10^6/ul (4.0-5.4); Red Cell Distribution Width 21 % (10.5-15)
[2017-02-08] MEDS: NS 0.9% 1000 ML* 1,000 ML IV SCH ×2 (07:34→17:50)
[2017-02-08 07:43] LABS: White Blood Count 8.7 10^3/ul (3.5-10.8)
[2017-02-08 07:44] LABS: Eosinophils % 2 % (0-6); Hypochromasia 1+; Neutrophil % 68 % (38-83)
[2017-02-08] MEDS: Insulin LISPRO* 1 UNITS UNIT SUBCUT SCH ×3 (08:06→17:44)
[2017-02-08] MEDS: Ferrous Sulfate TAB* 325 MG PO SCH (09:11)
[2017-02-08] MEDS: Cefepime(*) 2 GM in NS 0.9% 50 ML* 50 ML IVPB SCH (09:11)
[2017-02-08] MEDS: Polyethylene Glycol 3350* 17 GM PACKET PO SCH (09:11)
[2017-02-08] MEDS: Acetaminophen TAB* 325 MG PO PRN ×2 (09:57→14:23)
--- NOTE | 2017-02-08 10:10 | PN ---
Subjective Date of Service: 02/08/17 Interval History: Patient seen and examined at bedside. He does track me with his eyes and shakes his head no when asked about pain. No new complaints offered by patient or nursing staff. Family History: Unchanged from Admission Social History: Unchanged from Admission Past Medical History: Unchanged from Admission Objective Active Medications: Acetaminophen (Tylenol Tab*) 650 mg PO Q4H PRN PRN Reason: FEVER/PAIN Last Admin: 02/08/17 09:57 Dose: 650 mg Dextrose (D50w Syringe 50 Ml*) 12.5 gm IV PUSH .FOR FS < 60 - SS PRN PRN Reason: FS < 60 Ferrous Sulfate (Ferrous Sulfate Tab*) 325 mg PO DAILY [facility] Last Admin: 02/08/17 09:11 Dose: 325 mg Heparin Sodium (Porcine) (Heparin Vial(*)) 5,000 units SUBCUT Q8HR [facility] Last Admin: 02/08/17 06:31 Dose: 5,000 units Cefepime HCl 2 gm/ Sodium (Chloride) 50 mls @ 100 mls/hr IVPB Q12H [facility] Last Admin: 02/08/17 09:11 Dose: 100 mls/hr Metronidazole/Sodium Chloride (Flagyl 500 Mg Ivpb*) 500 mg in 100 mls @ 100 mls /hr IVPB Q8H [facility] Last Admin: 02/08/17 04:39 Dose: 100 mls/hr Vancomycin HCl 750 mg/ Sodium (Chloride) 250 mls @ 166.667 mls/hr IVPB Q12H [facility] Last Admin: 02/08/17 03:00 Dose: 166.667 mls/hr Sodium Chloride (Ns 0.9% 1000 Ml*) 1,000 mls @ 150 mls/hr IV PER RATE [facility] Last Admin: 02/08/17 07:34 Dose: 150 mls/hr Insulin Human Lispro (Humalog*) 0 units SUBCUT AC [facility] PRN Reason: Protocol Last Admin: 02/08/17 08:06 Dose: Not Given Morphine Sulfate (Morphine Inj (Syringe)*) 2 mg IV DAILY [facility] Last Admin: 02/07/17 08:24 Dose: 2 mg Ondansetron HCl (Zofran Inj*) 4 mg IV Q6H PRN PRN Reason: NAUSEA Pharmacy Consult (Vancomycin Per Pharmacy*) 1 note FOLLOW UP . PRN PRN Reason: PER PROTOCOL Pharmacy Profile Note (Vancomycin Trough Check) 1 note FOLLOW UP ONCE ONE Stop: 02/09/17 14:31 Polyethylene Glycol/Electrolytes (Miralax*) 17 gm PO DAILY [facility] Last Admin: 02/08/17 09:11 Dose: 17 gm Vital Signs 02/07/17 02/07/17 02/07/17 14:37 15:37 20:00 Temperature 98.8 F 98.9 F Pulse Rate 110 102 Respiratory 18 16 16 Rate Blood Pressure 124/74 122/75 (mmHg) O2 Sat by Pulse 100 100 100 Oximetry 02/07/17 02/08/17 02/08/17 20:08 00:13 04:31 Temperature 97.7 F 99.3 F 98.2 F Pulse Rate 106 109 108 Respiratory 16 16 18 Rate Blood Pressure 124/81 129/79 127/79 (mmHg) O2 Sat by Pulse 100 100 Oximetry 02/08/17 02/08/17 07:32 08:00 Temperature 98.9 F Pulse Rate 114 Respiratory 18 Rate Blood Pressure 119/79 (mmHg) O2 Sat by Pulse 100 100 Oximetry Appearance: Elderly male, lying in bed, NAD Eyes: No Scleral Icterus Ears/Nose/Mouth/Throat: Mucous Membranes Moist Neck: NL Appearance and Movements; NL JVP Respiratory: Symmetrical Chest Expansion and Respiratory Effort, Clear to Auscultation Cardiovascular: NL Sounds; No Murmurs; No JVD, RRR Abdominal: NL Sounds; No Tenderness; No Distention Neurological: - - Difficult to determine, pt non-verbal. Appears alert and oriented to self only Lines/Tubes/Other Access: Clean, Dry and Intact Peripheral IV Nutrition: Taking PO's Result Diagrams: 02/08/17 06:22 02/08/17 06:22 Additional Lab and Data: Lab Results 02/04/17 02/04/17 02/04/17 Range/Units 17:18 17:18 17:18 WBC 10.7 (3.5-10.8) 10^3/ul RBC 3.75 L (4.0-5.4) 10^6/ul Hgb 10.5 L (14.0-18.0) g/dl Hct 33 L (42-52) % MCV 88 (80-94) fL MCH 28 (27-31) pg MCHC 32 (31-36) g/dl RDW 19 H (10.5-15) % Plt Count 416 (150-450) 10^3/ul MPV 7 L (7.4-10.4) um3 Neut % (Auto) 79.3 (38-83) % Lymph % (Auto) 13.4 L (25-47) % Dewitt % (Auto) 6.4 (1-9) % Eos % (Auto) 0.7 (0-6) % Baso % (Auto) 0.2 (0-2) % Absolute Neuts (auto) 8.5 H (1.5-7.7) 10^3/ul Absolute Lymphs (auto) 1.4 (1.0-4.8) 10^3/ul Absolute Monos (auto) 0.7 (0-0.8) 10^3/ul Absolute Eos (auto) 0.1 (0-0.6) 10^3/ul Absolute Basos (auto) 0 (0-0.2) 10^3/ul Absolute Nucleated RBC 0.01 10^3/ul Nucleated RBC % 0.1 INR (Anticoag Therapy) 1.10 (0.89-1.11) APTT 33.0 (26.0-36.3) seconds Sodium 136 (133-145) mmol/L Potassium 4.6 (3.5-5.0) mmol/L Chloride 104 (101-111) mmol/L Carbon Dioxide 24 (22-32) mmol/L Anion Gap 8 (2-11) mmol/L BUN 13 (6-24) mg/dL Creatinine 0.75 (0.67-1.17) mg/dL Est GFR ( Amer) 131.7 (>60) Est GFR (Non-Af Amer) 102.4 (>60) BUN/Creatinine Ratio 17.3 (8-20) Glucose 126 H (70-100) mg/dL Calcium 9.3 (8.6-10.3) mg/dL Total Bilirubin 0.30 (0.2-1.0) mg/dL AST 28 (13-39) U/L ALT 58 H (7-52) U/L Alkaline Phosphatase 105 H (34-104) U/L Troponin I 0.01 (<0.04) ng/mL Total Protein 6.6 (6.4-8.9) g/dL Albumin 2.9 L (3.2-5.2) g/dL Globulin 3.7 (2-4) g/dL Albumin/Globulin Ratio 0.8 L (1-3) Microbiology and Other Data: Microbiology 02/06/17 11:30 Gram Stain - Final Wound Wound Culture - Preliminary Pseudomonas Aeruginosa Assess/Plan/Problems-Billing Assessment: Mr. Ramirez is a 71yo M with PMH of type 2 DM, HTN, HLD, CVA, left maxilla mass, recent admission for severe sepsis, hypernatremia, decubitus infection with Bacteroides bacteremia, presents from [facility], with altered MS and fever. - Patient Problems (1) Altered mental status Code(s): R41.82 - ALTERED MENTAL STATUS, UNSPECIFIED Comment: Suspect secondary to sepsis and hypernatremia. Increased lethargy yesterday MRI brain pending, as patient has known aggressive maxillary tumor (2) Sepsis Comment: Met sepsis criteria on admission with fever and tachycardia. Source is likely chronic ostemyelitis. CxR shows no infiltrate, and UA is negative. (3) Chronic osteomyelitis Code(s): M86.60 - OTHER CHRONIC OSTEOMYELITIS, UNSPECIFIED SITE Comment: Continue Cefepime, Vanco, and Metronidazole. Wound culture showing preliminary pseudomonas growth. Awaiting culture sensitivities. (4) Decubitus ulcer Code(s): L89.90 - PRESSURE ULCER OF UNSPECIFIED SITE, UNSPECIFIED STAGE Comment: Continue wet to dry dressing. Appreciate wound consult. (5) HTN (hypertension) Code(s): I10 - ESSENTIAL (PRIMARY) HYPERTENSION Comment: Normotensive Patient not currently on home medications. (6) Diabetes Code(s): E11.9 - TYPE 2 DIABETES MELLITUS WITHOUT COMPLICATIONS Comment: Continue Lispro SS. (7) DVT prophylaxis Code(s): IBU8053 - Comment: SQ heparin (8) Full code status Code(s): Z78.9 - OTHER SPECIFIED HEALTH STATUS Status and Disposition: Inpatient. MRI pending. Will discuss disposition with patient's daughter and family wishes. Case d/w Dr. Monroe at [facility] - they'll not offer a bed for transfer at this time. His case is closed. [facility] (daughter - Gi [phone])
[2017-02-08 10:15] LABS: BUN/Creatinine Ratio 12.7 (8-20); C Reactive Protein 6.75 mg/L (< 5.00); Calcium 8.6 mg/dL (8.6-10.3); EGFR African American 188.3 (>60); EGFR Non-African American 146.4 (>60); Potassium 4.8 mmol/L (3.5-5.0)
--- NOTE | 2017-02-08 11:40 | RAD ---
HISTORY: Left maxillary tumor with questionable MOTOR VEHICLE PARTS INTERPRETER invasion COMPARISONS: CT dated December 06, 2016, MRI dated August 18, 2016 TECHNIQUE: The following sequences were obtained of the head: Sagittal T1-weighted images, axial T2-weighted images, axial FLAIR images, axial susceptibility weighted images, axial T1-weighted images. Additionally, axial diffusion-weighted images were obtained with calculated apparent diffusion coefficients. FINDINGS: Evaluation is limited by the lack of intravenous contrast and patient motion artifact. HEMORRHAGE/INFARCT: There is no hemorrhage or acute infarct. MASSES/SHIFT: There is no mass or shift. EXTRA-AXIAL SPACES/MENINGES: There are no extra-axial fluid collections. SULCI AND VENTRICLES: There is diffuse and proportional enlargement of the sulci and ventricles. CEREBRUM: There is extensive confluent elevated T2/FLAIR signal in the periventricular and subcortical white matter BRAINSTEM: There are no focal parenchymal abnormalities. CEREBELLUM: There are no focal parenchymal abnormalities. The cerebellar tonsils are normal in size and position. SELLA: The sella is normal. PINEAL: The pineal region is clear. CP ANGLE/TEMPORAL BONES: The labyrinthine structures are grossly normal. VESSELS: Normal flow-voids are noted within the visualized vertebral vasculature. DIFFUSION ABNORMALITIES: There are no diffusion abnormalities. PARANASAL SINUSES/MASTOIDS: Again noted is an expansile mass of the left maxilla. ORBITS: The orbits are unremarkable. BONES AND SOFT TISSUE: No bone or soft tissue abnormalities are noted. OTHER: None IMPRESSION: 1. LIMITED STUDY. 2. AGAIN NOTED IS AN EXPANSILE MASS OF THE LEFT MAXILLA WITHOUT APPRECIABLE MOTOR VEHICLE PARTS INTERPRETER EXTENSION. 3. DIFFUSE INVOLUTIONAL CHANGE WITH ELEVATED T2/FLAIR SIGNAL IN THE PERIVENTRICULAR AND SUBCORTICAL WHITE MATTER, SUGGESTIVE OF ADVANCED CHRONIC SMALL VESSEL ISCHEMIC CHANGE
[2017-02-08 13:12] LABS: PCO2 Arterial 33 mmHg (35-45)
[2017-02-08] MEDS: Morphine INJ* 2 MG/ML 1 ML SYRINGE IV SCH (14:34)
--- NOTE | 2017-02-08 17:22 | PN ---
Hospitalist Progress Note Per daughter's request, I did contact [facility], [facility], [facility], and [facility] in regards to patient transfer. [facility] has no beds available and the other 3 hospitals require the family to establish their father with a local physician in order to facilitate transfer. This was communicated to amanda Angelo's daughter, who will work on this. 50 minutes spent in conversation and coordination.
[2017-02-08] MEDS: Ciprofloxacin 400MG IVPREMIX(* 400 MG/200 ML BAG IVPB SCH (17:47)
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
[2017-02-08 23:42] LABS: Carbon Monoxide 3.5 % (<3.5); Venous Bicarbonate HCO3 26.4 mmol/L (24-28)
[2017-02-09] MEDS: Ciprofloxacin 400MG IVPREMIX(* 400 MG/200 ML BAG IVPB SCH ×2 (00:54→10:56)
[2017-02-09] MEDS: metroNIDAZOLE IV 500 MG/100ML* 500 MG/100 ML BAG IVPB SCH ×3 (04:19→21:08)
[2017-02-09] MEDS: Heparin VIAL(*) 5000 UNITS/ML VIAL (FIVE THOUSAND) SUBCUT SCH ×3 (05:33→21:08)
[2017-02-09] MEDS: NS 0.9% 1000 ML* 1,000 ML IV SCH (07:52)
[2017-02-09] MEDS: Insulin LISPRO* 1 UNITS UNIT SUBCUT SCH ×3 (08:41→17:15)
--- NOTE | 2017-02-09 08:46 | PN ---
Subjective Date of Service: 02/09/17 Interval History: Patient seen and examined at bedside. Patient denies any acute complaints. He is alert and talking and responding appropriately to conversation. Appears to be eating well with nursing assistance. Family History: Unchanged from Admission Social History: Unchanged from Admission Past Medical History: Unchanged from Admission Objective Active Medications: Acetaminophen (Tylenol Tab*) 650 mg PO Q4H PRN PRN Reason: FEVER/PAIN Last Admin: 02/08/17 14:23 Dose: 650 mg Dextrose (D50w Syringe 50 Ml*) 12.5 gm IV PUSH .FOR FS < 60 - SS PRN PRN Reason: FS < 60 Ferrous Sulfate (Ferrous Sulfate Tab*) 325 mg PO DAILY [facility] Last Admin: 02/08/17 09:11 Dose: 325 mg Heparin Sodium (Porcine) (Heparin Vial(*)) 5,000 units SUBCUT Q8HR [facility] Last Admin: 02/09/17 05:33 Dose: 5,000 units Metronidazole/Sodium Chloride (Flagyl 500 Mg Ivpb*) 500 mg in 100 mls @ 100 mls /hr IVPB Q8H [facility] Last Admin: 02/09/17 04:19 Dose: 100 mls/hr Sodium Chloride (Ns 0.9% 1000 Ml*) 1,000 mls @ 150 mls/hr IV PER RATE [facility] Last Admin: 02/09/17 07:52 Dose: 150 mls/hr Ciprofloxacin/Dextrose (Cipro 400 Mg Ivpremix(*)) 400 mg in 200 mls @ 200 mls/ hr IVPB Q8H [facility] Last Admin: 02/09/17 00:54 Dose: 200 mls/hr Insulin Human Lispro (Humalog*) 0 units SUBCUT AC [facility] PRN Reason: Protocol Last Admin: 02/09/17 08:41 Dose: Not Given Morphine Sulfate (Morphine Inj (Syringe)*) 2 mg IV DAILY [facility] Last Admin: 02/08/17 14:34 Dose: 2 mg Ondansetron HCl (Zofran Inj*) 4 mg IV Q6H PRN PRN Reason: NAUSEA Polyethylene Glycol/Electrolytes (Miralax*) 17 gm PO DAILY [facility] Last Admin: 02/08/17 09:11 Dose: 17 gm Vital Signs 02/08/17 02/08/17 02/08/17 14:34 15:34 20:00 Temperature 97.4 F Pulse Rate 108 Respiratory 20 20 20 Rate Blood Pressure 121/84 (mmHg) O2 Sat by Pulse 98 Oximetry 02/08/17 02/08/17 02/09/17 20:08 23:43 04:29 Temperature 98.7 F Pulse Rate 115 109 Respiratory 18 18 18 Rate Blood Pressure 121/76 128/86 (mmHg) O2 Sat by Pulse 100 100 Oximetry 02/09/17 08:32 Temperature Pulse Rate Respiratory Rate Blood Pressure (mmHg) O2 Sat by Pulse 100 Oximetry Appearance: Elderly male, lying in bed, NAD Eyes: No Scleral Icterus Ears/Nose/Mouth/Throat: Mucous Membranes Moist Neck: NL Appearance and Movements; NL JVP Respiratory: Symmetrical Chest Expansion and Respiratory Effort, Clear to Auscultation Cardiovascular: NL Sounds; No Murmurs; No JVD, RRR Abdominal: NL Sounds; No Tenderness; No Distention Neurological: - - Alert, oriented to self. Nutrition: Taking PO's Result Diagrams: 02/08/17 06:22 02/08/17 06:22 Additional Lab and Data: Lab Results 02/04/17 02/04/17 02/04/17 Range/Units 17:18 17:18 17:18 WBC 10.7 (3.5-10.8) 10^3/ul RBC 3.75 L (4.0-5.4) 10^6/ul Hgb 10.5 L (14.0-18.0) g/dl Hct 33 L (42-52) % MCV 88 (80-94) fL MCH 28 (27-31) pg MCHC 32 (31-36) g/dl RDW 19 H (10.5-15) % Plt Count 416 (150-450) 10^3/ul MPV 7 L (7.4-10.4) um3 Neut % (Auto) 79.3 (38-83) % Lymph % (Auto) 13.4 L (25-47) % Worth % (Auto) 6.4 (1-9) % Eos % (Auto) 0.7 (0-6) % Baso % (Auto) 0.2 (0-2) % Absolute Neuts (auto) 8.5 H (1.5-7.7) 10^3/ul Absolute Lymphs (auto) 1.4 (1.0-4.8) 10^3/ul Absolute Monos (auto) 0.7 (0-0.8) 10^3/ul Absolute Eos (auto) 0.1 (0-0.6) 10^3/ul Absolute Basos (auto) 0 (0-0.2) 10^3/ul Absolute Nucleated RBC 0.01 10^3/ul Nucleated RBC % 0.1 INR (Anticoag Therapy) 1.10 (0.89-1.11) APTT 33.0 (26.0-36.3) seconds Sodium 136 (133-145) mmol/L Potassium 4.6 (3.5-5.0) mmol/L Chloride 104 (101-111) mmol/L Carbon Dioxide 24 (22-32) mmol/L Anion Gap 8 (2-11) mmol/L BUN 13 (6-24) mg/dL Creatinine 0.75 (0.67-1.17) mg/dL Est GFR ( Amer) 131.7 (>60) Est GFR (Non-Af Amer) 102.4 (>60) BUN/Creatinine Ratio 17.3 (8-20) Glucose 126 H (70-100) mg/dL Calcium 9.3 (8.6-10.3) mg/dL Total Bilirubin 0.30 (0.2-1.0) mg/dL AST 28 (13-39) U/L ALT 58 H (7-52) U/L Alkaline Phosphatase 105 H (34-104) U/L Troponin I 0.01 (<0.04) ng/mL Total Protein 6.6 (6.4-8.9) g/dL Albumin 2.9 L (3.2-5.2) g/dL Globulin 3.7 (2-4) g/dL Albumin/Globulin Ratio 0.8 L (1-3) Microbiology and Other Data: Microbiology 02/06/17 11:30 Gram Stain - Final Wound Wound Culture - Preliminary Pseudomonas Aeruginosa Assess/Plan/Problems-Billing Assessment: Mr. Ramirez is a 71yo M with PMH of type 2 DM, HTN, HLD, CVA, left maxilla mass, recent admission for severe sepsis, hypernatremia, decubitus infection with Bacteroides bacteremia, presents from [facility], with altered MS and fever. - Patient Problems (1) Altered mental status Code(s): R41.82 - ALTERED MENTAL STATUS, UNSPECIFIED Comment: Suspect secondary to sepsis and hypernatremia. Improving ABG shows respiratory alkalosis, suspect from hyperventilation and potentially pain. 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 (2) Sepsis Comment: Met sepsis criteria on admission with fever and tachycardia. Source is likely chronic ostemyelitis. CxR shows no infiltrate, and UA is negative. (3) Chronic osteomyelitis Code(s): M86.60 - OTHER CHRONIC OSTEOMYELITIS, UNSPECIFIED SITE Comment: Pseudomonas on wound culture with multiple resistances. Cefepime switched to ciprofloxacin. Continue metronidazole. ID consult requested. (4) Decubitus ulcer Code(s): L89.90 - PRESSURE ULCER OF UNSPECIFIED SITE, UNSPECIFIED STAGE Comment: Continue wet to dry dressing. Appreciate wound consult. (5) HTN (hypertension) Code(s): I10 - ESSENTIAL (PRIMARY) HYPERTENSION Comment: Normotensive Patient not currently on home medications. (6) Diabetes Code(s): E11.9 - TYPE 2 DIABETES MELLITUS WITHOUT COMPLICATIONS Comment: Continue Lispro SS. (7) DVT prophylaxis Code(s): VOC1879 - Comment: SQ heparin (8) Full code status Code(s): Z78.9 - OTHER SPECIFIED HEALTH STATUS Status and Disposition: Inpatient. ID consult. Plan for discharge to [facility] unless family finds a location in [facility]/ Case d/w Dr. Monroe at [facility] - they'll not offer a bed for transfer at this time. His case is closed. HCP (daughter - Gi [phone])
[2017-02-09] MEDS ORDERED: NS 0.9% 1000 ML* 1,000 ML IV SCH (09:18)
[2017-02-09] MEDS: Ferrous Sulfate TAB* 325 MG PO SCH (10:55)
[2017-02-09] MEDS: Morphine INJ* 2 MG/ML 1 ML SYRINGE IV SCH (10:55)
[2017-02-09] MEDS: Polyethylene Glycol 3350* 17 GM PACKET PO SCH (13:16)
[2017-02-09] MEDS ORDERED: Vancomycin Trough Check NOTE FOLLOW UP ONE (14:30)
[2017-02-09] MEDS: cefTRIAXone VIAL(*) 1,000 MG in NS 0.9% 50 ML* 50 ML IVPB SCH (17:08)
--- NOTE | 2017-02-09 17:26 | PN ---
Hospitalist Progress Note Sacral decubitus ulcer 02/09/17
[2017-02-09 20:42] LABS: Hematocrit 26 % (42-52); Hemoglobin 8.5 g/dl (14.0-18.0); Mean Corpuscular HGB Conc 32 g/dl (31-36); Mean Corpuscular Hemoglobin 29 pg (27-31); Mean Corpuscular Volume 89 fL (80-94); Mean Platelet Volume 7 um3 (7.4-10.4); Red Blood Count 2.97 10^6/ul (4.0-5.4); Red Cell Distribution Width 21 % (10.5-15); White Blood Count 8.3 10^3/ul (3.5-10.8)
[2017-02-09 20:56] LABS: Albumin 2.4 g/dL (3.2-5.2); BUN/Creatinine Ratio 15.1 (8-20); Calcium 8.4 mg/dL (8.6-10.3); EGFR African American 196.5 (>60); EGFR Non-African American 152.8 (>60); Potassium 3.9 mmol/L (3.5-5.0); Total Bilirubin 0.3 mg/dL (0.2-1.0); Total Protein 5.4 g/dL (6.4-8.9)
[2017-02-09 22:44] LABS: PCO2 Arterial 33 mmHg (35-45)
[2017-02-09] MEDS: Acetaminophen TAB* 325 MG PO PRN (23:50)
--- NOTE | 2017-02-10 03:37 | CONS ---
CONSULTATION REPORT: DATE OF CONSULTATION: 02/09/17 REQUESTING PROVIDER: Jen Mackenzie NP CONSULTING SERVICE: Infectious Disease. REASON FOR CONSULTATION: Sacral wound infection and encephalopathy. IMPRESSION: 1. Encephalopathy, present on admission, in the setting of baseline dementia, likely vascular in nature. 2. Diabetes. 3. Large sacral decubitus ulcer, chronic with osteomyelitis and Pseudomonas growing in the wound, which I think is colonization and not infection, as there is no outward appearance of infection including no foul odor, significant drainage or surrounding erythema. He had previously grown Enterococcus and Bacteroides as well. What is also known is chronic osteomyelitis due to this ulceration. 4. Debilitation and hypoalbuminemia. RECOMMENDATION: I will stop the Cipro and go back to ceftriaxone, which he had tolerated well. Continue Flagyl and follow his course here as far as trying to make another long-term antibiotic plan for him. HISTORY OF PRESENT ILLNESS: Encephalopathy, present on admission, slight improvement in the setting of baseline dementia. He was recently at [facility] with sepsis from a decubitus ulcer infection with chronic osteomyelitis. The blood cultures at that time grew Bacteroides fragilis and a buttock culture grew Enterococcus faecalis and Bacteroides fragilis. He was discharged on oral antibiotics after an initial IV course. He was readmitted on 02/04/17. He cannot provide any history given his mental status, which was obtained instead from review of the medical record. He has been on Flagyl and doxycycline, currently tolerating it well and then he has had become less verbal and more lethargic with fever on the and 4th and so he is brought into the hospital. Brain MRI showed no new changes, showed old maxillary mass. He had no leukocytosis when he came to the hospital. He was tachycardic and febrile. He was started on IV antibiotics, initially ceftriaxone and vancomycin and cefepime, which was changed to Flagyl and ciprofloxacin, which he is on now through the IV and apparently tolerating well. There was a plan for transfer to a hospital in [facility] to be [facility] but that fell through and apparently electing to go back to [facility] now. A wound culture was taken here, Gram stain showed no organisms and it has grown 1+ Pseudomonas, which is resistant to cefepime and Zosyn and intermediate to Levaquin. He is on Cipro here. Sensitive to tobramycin. He has had no recurrence of fever. He cannot provide any input on whether or not there is pain. PAST MEDICAL HISTORY: 1. History of stroke. 2. Maxillary adenoma. 3. Hypertension. 4. hyperlipidemia. 5. Diabetes, type II. 6. Neurogenic bladder. MEDICATIONS: 1. Tylenol. 2. Cipro 400 mg every 8 hours. 3. Ferrous sulfate. 4. Heparin subcutaneous injection. 5. Flagyl 500 mg every 8 hours. ALLERGIES: No known drug allergies. FAMILY HISTORY: Unobtainable given his mental status. SOCIAL HISTORY: He has been living at [facility]. Surrogate decision maker is his girlfriend. REVIEW OF SYSTEMS: Unobtainable given his mental status. PHYSICAL EXAM: Vital Signs: Temperature is 37, heart rate 100, respiratory rate of 16, blood pressure 120/70, O2 sat 98% on room air. In general, he is awake, does not answer questions, or regard, or follow commands. HEENT: There is no conjunctival hemorrhage. Oropharynx without lesions. Neck is supple without nuchal rigidity. Heart is regular and tachycardic without murmurs. Lungs show decreased breath sounds throughout. No wheezes, rales or rhonchi. Abdomen is soft, nontender, nondistended. Skin: There is no rash or splinter hemorrhages. Musculoskeletal: There is no spinal tenderness to palpation. There are multiple decubitus ulcers on the sacrum and then 2 unstageable ulcers on his heels bilaterally. The sacral decubitus ulcers do not have surrounding erythema or drainage. The right buttock wound is deep. There is no visible bone. LABORATORY DATA: White blood cell count 8, hemoglobin 9, platelets 390, creatinine is 0.5. CRP was 6, down from 9. Please see impressions and recommendations outlined above. Thank you for asking me to see, Mr. Dar Ramirez in consultation. [id number]/[facility] #: [id number] ATUL
[2017-02-10] MEDS: Heparin VIAL(*) 5000 UNITS/ML VIAL (FIVE THOUSAND) SUBCUT SCH ×3 (05:51→21:03)
[2017-02-10 06:26] LABS: Hematocrit 27 % (42-52); Hemoglobin 8.7 g/dl (14.0-18.0); Mean Corpuscular HGB Conc 33 g/dl (31-36); Mean Corpuscular Hemoglobin 29 pg (27-31); Mean Corpuscular Volume 89 fL (80-94); Mean Platelet Volume 7 um3 (7.4-10.4); Red Blood Count 3.01 10^6/ul (4.0-5.4); Red Cell Distribution Width 22 % (10.5-15); White Blood Count 7.8 10^3/ul (3.5-10.8)
[2017-02-10 06:45] LABS: BUN/Creatinine Ratio 13.5 (8-20); Calcium 8.6 mg/dL (8.6-10.3); EGFR African American 200.9 (>60); EGFR Non-African American 156.2 (>60); Potassium 4.1 mmol/L (3.5-5.0)
[2017-02-10 07:46] LABS: C Reactive Protein 4.18 mg/L (< 5.00)
--- NOTE | 2017-02-10 08:12 | RAD ---
HISTORY: Hypoxia, altered mental status COMPARISONS: February 04, 2017 VIEWS:1: Single frontal portable view of the chest at 7:55 AM FINDINGS: LINES AND TUBES: None. CARDIOMEDIASTINAL SILHOUETTE: The cardiomediastinal silhouette is normal for portable technique. PLEURA: The costophrenic angles are sharp. No pleural abnormalities are noted. LUNG PARENCHYMA: There is minimal linear opacification of the right lung base ABDOMEN: The upper abdomen is clear. There is no subphrenic gas. BONES AND SOFT TISSUES: No bone or soft tissue abnormalities are noted. IMPRESSION: THERE IS LINEAR ATELECTASIS OF THE RIGHT LUNG BASE
[2017-02-10] MEDS: Insulin LISPRO* 1 UNITS UNIT SUBCUT SCH ×3 (09:18→17:40)
[2017-02-10] MEDS: metroNIDAZOLE IV 500 MG/100ML* 500 MG/100 ML BAG IVPB SCH ×2 (09:18→21:03)
[2017-02-10] MEDS: Ferrous Sulfate TAB* 325 MG PO SCH (09:18)
[2017-02-10] MEDS: Polyethylene Glycol 3350* 17 GM PACKET PO SCH (09:19)
[2017-02-10] MEDS: Morphine INJ* 2 MG/ML 1 ML SYRINGE IV SCH (09:19)
[2017-02-10] MEDS: NS 0.9% 1000 ML* 1,000 ML IV SCH ×2 (09:20→16:13)
[2017-02-10] MEDS ORDERED: Albuterol 2.5 MG/3 ML NEB.SOL* (0.083%) INH ONE (09:32)
[2017-02-10] MEDS ORDERED: Albuterol 2.5 MG/3 ML NEB.SOL* (0.083%) INH PRN (09:32)
--- NOTE | 2017-02-10 09:37 | PN ---
Subjective Date of Service: 02/10/17 Interval History: Patient seen and examined at bedside. He is alert. When asked how he is feeling , he responds "OK, how are you feeling?" He shakes his head no if asked if anything hurts or bothers him. He appears pleasantly confused. Unable to follow direct commands. Patient's son, Jr. Dar, is at bedside. Family History: Unchanged from Admission Social History: Unchanged from Admission Past Medical History: Unchanged from Admission Objective Active Medications: Acetaminophen (Tylenol Tab*) 650 mg PO Q4H PRN PRN Reason: FEVER/PAIN Last Admin: 02/08/17 14:23 Dose: 650 mg Albuterol (Ventolin 2.5 Mg/3 Ml Neb.Preethi*) 2.5 mg INH Q6H PRN PRN Reason: SOB/WHEEZING Dextrose (D50w Syringe 50 Ml*) 12.5 gm IV PUSH .FOR FS < 60 - SS PRN PRN Reason: FS < 60 Ferrous Sulfate (Ferrous Sulfate Tab*) 325 mg PO DAILY [facility] Last Admin: 02/10/17 09:18 Dose: 325 mg Heparin Sodium (Porcine) (Heparin Vial(*)) 5,000 units SUBCUT Q8HR [facility] Last Admin: 02/10/17 05:51 Dose: 5,000 units Ceftriaxone Sodium 1,000 mg/ (Sodium Chloride) 50 mls @ 200 mls/hr IVPB Q24H [facility] Last Admin: 02/09/17 17:08 Dose: 200 mls/hr Metronidazole/Sodium Chloride (Flagyl 500 Mg Ivpb*) 500 mg in 100 mls @ 100 mls /hr IVPB Q12HR [facility] Last Admin: 02/10/17 09:18 Dose: 100 mls/hr Sodium Chloride (Ns 0.9% 1000 Ml*) 1,000 mls @ 125 mls/hr IV PER RATE [facility] Last Admin: 02/10/17 09:20 Dose: 125 mls/hr Insulin Human Lispro (Humalog*) 0 units SUBCUT AC [facility] PRN Reason: Protocol Last Admin: 02/10/17 09:18 Dose: 1 unit Morphine Sulfate (Morphine Inj (Syringe)*) 2 mg IV DAILY [facility] Last Admin: 02/10/17 09:19 Dose: 2 mg Ondansetron HCl (Zofran Inj*) 4 mg IV Q6H PRN PRN Reason: NAUSEA Polyethylene Glycol/Electrolytes (Miralax*) 17 gm PO DAILY [facility] Last Admin: 02/10/17 09:19 Dose: 17 gm Vital Signs 02/09/17 02/09/17 02/09/17 10:55 15:55 19:42 Temperature 99.1 F 99.8 F Pulse Rate 113 124 Respiratory 14 20 24 Rate Blood Pressure 112/73 116/69 (mmHg) O2 Sat by Pulse 97 92 Oximetry 02/09/17 02/09/17 02/10/17 20:00 23:39 00:43 Temperature 100.3 F Pulse Rate 121 Respiratory 24 22 Rate Blood Pressure 135/77 (mmHg) O2 Sat by Pulse 92 95 98 Oximetry 02/10/17 02/10/17 02/10/17 03:30 08:10 09:19 Temperature 99.5 F 97.7 F Pulse Rate 121 113 Respiratory 18 20 Rate Blood Pressure 110/74 130/86 (mmHg) O2 Sat by Pulse 96 99 Oximetry Oxygen Devices in Use Now: Nasal Cannula Appearance: Elderly male, lying in bed, NAD Eyes: No Scleral Icterus Ears/Nose/Mouth/Throat: Mucous Membranes Moist Neck: NL Appearance and Movements; NL JVP Respiratory: Symmetrical Chest Expansion and Respiratory Effort, - - coarse breath sounds with rhonchi Cardiovascular: NL Sounds; No Murmurs; No JVD, RRR Abdominal: NL Sounds; No Tenderness; No Distention Extremities: No Edema Skin: - - sacral pressure ulcer wounds - chronic, bilateral foot wounds Neurological: - - Alert, oriented to self Lines/Tubes/Other Access: Clean, Dry and Intact Peripheral IV Nutrition: Taking PO's Result Diagrams: 02/10/17 05:58 02/10/17 05:58 Additional Lab and Data: Lab Results 02/04/17 02/04/17 02/04/17 Range/Units 17:18 17:18 17:18 WBC 10.7 (3.5-10.8) 10^3/ul RBC 3.75 L (4.0-5.4) 10^6/ul Hgb 10.5 L (14.0-18.0) g/dl Hct 33 L (42-52) % MCV 88 (80-94) fL MCH 28 (27-31) pg MCHC 32 (31-36) g/dl RDW 19 H (10.5-15) % Plt Count 416 (150-450) 10^3/ul MPV 7 L (7.4-10.4) um3 Neut % (Auto) 79.3 (38-83) % Lymph % (Auto) 13.4 L (25-47) % [place] % (Auto) 6.4 (1-9) % Eos % (Auto) 0.7 (0-6) % Baso % (Auto) 0.2 (0-2) % Absolute Neuts (auto) 8.5 H (1.5-7.7) 10^3/ul Absolute Lymphs (auto) 1.4 (1.0-4.8) 10^3/ul Absolute Monos (auto) 0.7 (0-0.8) 10^3/ul Absolute Eos (auto) 0.1 (0-0.6) 10^3/ul Absolute Basos (auto) 0 (0-0.2) 10^3/ul Absolute Nucleated RBC 0.01 10^3/ul Nucleated RBC % 0.1 INR (Anticoag Therapy) 1.10 (0.89-1.11) APTT 33.0 (26.0-36.3) seconds Sodium 136 (133-145) mmol/L Potassium 4.6 (3.5-5.0) mmol/L Chloride 104 (101-111) mmol/L Carbon Dioxide 24 (22-32) mmol/L Anion Gap 8 (2-11) mmol/L BUN 13 (6-24) mg/dL Creatinine 0.75 (0.67-1.17) mg/dL Est GFR ( Amer) 131.7 (>60) Est GFR (Non-Af Amer) 102.4 (>60) BUN/Creatinine Ratio 17.3 (8-20) Glucose 126 H (70-100) mg/dL Calcium 9.3 (8.6-10.3) mg/dL Total Bilirubin 0.30 (0.2-1.0) mg/dL AST 28 (13-39) U/L ALT 58 H (7-52) U/L Alkaline Phosphatase 105 H (34-104) U/L Troponin I 0.01 (<0.04) ng/mL Total Protein 6.6 (6.4-8.9) g/dL Albumin 2.9 L (3.2-5.2) g/dL Globulin 3.7 (2-4) g/dL Albumin/Globulin Ratio 0.8 L (1-3) Microbiology and Other Data: Microbiology 02/06/17 11:30 Gram Stain - Final Wound Wound Culture - Preliminary Pseudomonas Aeruginosa Assess/Plan/Problems-Billing Assessment: Mr. Ramirez is a 71yo M with PMH of type 2 DM, HTN, HLD, CVA, left maxilla mass, recent admission for severe sepsis, hypernatremia, decubitus infection with Bacteroides bacteremia, presents from [facility], with altered MS and fever. - Patient Problems (1) Altered mental status Code(s): R41.82 - ALTERED MENTAL STATUS, UNSPECIFIED Comment: Episode of lethargy last evening, pt found to have low O2 Now improved - CXR shows atelectasis. Encourage pulmonary toileting (difficult with patient's dementia) Sepsis and hypernatremia likely contributing ABG shows respiratory alkalosis, suspect from hyperventilation and potentially pain. 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 (2) Sepsis Comment: Met sepsis criteria on admission with fever and tachycardia. Source is likely chronic ostemyelitis. CxR shows no infiltrate, and UA is negative. (3) Chronic osteomyelitis Code(s): M86.60 - OTHER CHRONIC OSTEOMYELITIS, UNSPECIFIED SITE Comment: Pseudomonas on wound culture with multiple resistances. Appreciate ID input - continue ceftriaxone and metronidazole per ID. (4) Decubitus ulcer Code(s): L89.90 - PRESSURE ULCER OF UNSPECIFIED SITE, UNSPECIFIED STAGE Comment: Continue wet to dry dressing. Appreciate wound consult. (5) HTN (hypertension) Code(s): I10 - ESSENTIAL (PRIMARY) HYPERTENSION Comment: Normotensive Patient not currently on home medications. (6) Diabetes Code(s): E11.9 - TYPE 2 DIABETES MELLITUS WITHOUT COMPLICATIONS Comment: Continue Lispro SS. (7) DVT prophylaxis Code(s): TAY1788 - Comment: SQ heparin (8) Full code status Code(s): Z78.9 - OTHER SPECIFIED HEALTH STATUS Status and Disposition: Inpatient. ID consult. Plan for discharge to [facility] unless family finds a location in [facility]/ Case d/w Dr. Monroe at [facility] - they'll not offer a bed for transfer at this time. His case is closed. HCP (daughter - Gi [phone])
--- NOTE | 2017-02-10 15:53 | PN ---
Hospitalist Progress Note Received notification from SW team that Gi, pt's daughter, has obtained an accepting attending physician, Dr. Kp Montilla , for transfer to [facility]. Spoke with admissions staff regarding bed assignment and was informed that a MILVIA would need to be faxed prior to receiving bed offer. CM/SW team notified. I did speak with Dr. Montilla, who confirmed he would receive the patient onto his service and asked that all appropriate medical records be sent with patient. Awaiting notification from [facility] following receipt of MILVIA.
[2017-02-10] MEDS: cefTRIAXone VIAL(*) 1,000 MG in NS 0.9% 50 ML* 50 ML IVPB SCH (16:13)
[2017-02-11 05:32] LABS: Hematocrit 27 % (42-52); Hemoglobin 8.5 g/dl (14.0-18.0); Mean Corpuscular HGB Conc 32 g/dl (31-36); Mean Corpuscular Hemoglobin 29 pg (27-31); Mean Corpuscular Volume 89 fL (80-94); Mean Platelet Volume 7 um3 (7.4-10.4); Red Cell Distribution Width 22 % (10.5-15); White Blood Count 7.9 10^3/ul (3.5-10.8)
[2017-02-11] MEDS: Heparin VIAL(*) 5000 UNITS/ML VIAL (FIVE THOUSAND) SUBCUT SCH ×2 (05:38→15:26)
[2017-02-11 05:47] LABS: BUN/Creatinine Ratio 20.9 (8-20); Calcium 8.6 mg/dL (8.6-10.3); EGFR African American 250.2 (>60); EGFR Non-African American 194.5 (>60); Potassium 4.3 mmol/L (3.5-5.0)
[2017-02-11] MEDS: Insulin LISPRO* 1 UNITS UNIT SUBCUT SCH ×3 (08:46→17:43)
[2017-02-11] MEDS: Ferrous Sulfate TAB* 325 MG PO SCH (08:48)
[2017-02-11] MEDS: metroNIDAZOLE IV 500 MG/100ML* 500 MG/100 ML BAG IVPB SCH ×4 (08:48→22:52)
[2017-02-11] MEDS: Polyethylene Glycol 3350* 17 GM PACKET PO SCH (08:49)
--- NOTE | 2017-02-11 11:35 | PN ---
Subjective Date of Service: 02/11/17 Interval History: Patient seen and examined at bedside. He is alert. He responds appropriately when asked "how are you feeling?" He denies CP, SOB, states "I feel fine." Patient does not respond when asked more complex questions and when asked about the plan to transfer to [facility]. He does shakes his head yes when asked if Gi is his daughter. Family History: Unchanged from Admission Social History: Unchanged from Admission Past Medical History: Unchanged from Admission Objective Active Medications: Acetaminophen (Tylenol Tab*) 650 mg PO Q4H PRN PRN Reason: FEVER/PAIN Last Admin: 02/09/17 23:50 Dose: 650 mg Albuterol (Ventolin 2.5 Mg/3 Ml Neb.Preethi*) 2.5 mg INH Q6H PRN PRN Reason: SOB/WHEEZING Dextrose (D50w Syringe 50 Ml*) 12.5 gm IV PUSH .FOR FS < 60 - SS PRN PRN Reason: FS < 60 Ferrous Sulfate (Ferrous Sulfate Tab*) 325 mg PO DAILY [facility] Last Admin: 02/11/17 08:48 Dose: 325 mg Heparin Sodium (Porcine) (Heparin Vial(*)) 5,000 units SUBCUT Q8HR [facility] Last Admin: 02/11/17 05:38 Dose: 5,000 units Ceftriaxone Sodium 1,000 mg/ (Sodium Chloride) 50 mls @ 200 mls/hr IVPB Q24H [facility] Last Admin: 02/10/17 16:13 Dose: 200 mls/hr Metronidazole/Sodium Chloride (Flagyl 500 Mg Ivpb*) 500 mg in 100 mls @ 100 mls /hr IVPB Q12HR [facility] Last Admin: 02/11/17 09:26 Dose: 100 mls/hr Insulin Human Lispro (Humalog*) 0 units SUBCUT AC [facility] PRN Reason: Protocol Last Admin: 02/11/17 08:46 Dose: 1 unit Morphine Sulfate (Morphine Inj (Syringe)*) 2 mg IV DAILY [facility] Last Admin: 02/10/17 09:19 Dose: 2 mg Ondansetron HCl (Zofran Inj*) 4 mg IV Q6H PRN PRN Reason: NAUSEA Polyethylene Glycol/Electrolytes (Miralax*) 17 gm PO DAILY [facility] Last Admin: 02/11/17 08:49 Dose: 17 gm Vital Signs 0502/10/17 02/10/17 15:27 19:44 20:00 Temperature 100.6 F 99.5 F Pulse Rate 118 124 Respiratory 24 20 20 Rate Blood Pressure 121/75 114/66 (mmHg) O2 Sat by Pulse 100 100 100 Oximetry 02/10/17 02/11/17 02/11/17 23:13 03:43 07:38 Temperature 98.8 F 98.1 F 97.5 F Pulse Rate 114 116 112 Respiratory 18 20 Rate Blood Pressure 123/76 124/94 134/88 (mmHg) O2 Sat by Pulse 98 100 100 Oximetry 02/11/17 02/11/17 08:00 10:05 Temperature 99.0 F Pulse Rate 115 Respiratory 18 Rate Blood Pressure 125/79 (mmHg) O2 Sat by Pulse 100 100 Oximetry Oxygen Devices in Use Now: Nasal Cannula Appearance: Elderly male, lying in bed, sleeping but arouses easily, NAD Eyes: No Scleral Icterus Ears/Nose/Mouth/Throat: Mucous Membranes Moist Neck: NL Appearance and Movements; NL JVP Respiratory: Symmetrical Chest Expansion and Respiratory Effort, Clear to Auscultation Cardiovascular: NL Sounds; No Murmurs; No JVD, RRR - tachycardic Abdominal: NL Sounds; No Tenderness; No Distention Skin: - - sacral dressing to pressure ulcer - c/d/i Neurological: - - Alert, oriented to self. Not oriented to time/place/situation. Lines/Tubes/Other Access: Clean, Dry and Intact Peripheral IV Nutrition: Taking PO's Result Diagrams: 02/11/17 05:20 02/11/17 05:20 Additional Lab and Data: Lab Results 02/04/17 02/04/17 02/04/17 Range/Units 17:18 17:18 17:18 WBC 10.7 (3.5-10.8) 10^3/ul RBC 3.75 L (4.0-5.4) 10^6/ul Hgb 10.5 L (14.0-18.0) g/dl Hct 33 L (42-52) % MCV 88 (80-94) fL MCH 28 (27-31) pg MCHC 32 (31-36) g/dl RDW 19 H (10.5-15) % Plt Count 416 (150-450) 10^3/ul MPV 7 L (7.4-10.4) um3 Neut % (Auto) 79.3 (38-83) % Lymph % (Auto) 13.4 L (25-47) % [place] % (Auto) 6.4 (1-9) % Eos % (Auto) 0.7 (0-6) % Baso % (Auto) 0.2 (0-2) % Absolute Neuts (auto) 8.5 H (1.5-7.7) 10^3/ul Absolute Lymphs (auto) 1.4 (1.0-4.8) 10^3/ul Absolute Monos (auto) 0.7 (0-0.8) 10^3/ul Absolute Eos (auto) 0.1 (0-0.6) 10^3/ul Absolute Basos (auto) 0 (0-0.2) 10^3/ul Absolute Nucleated RBC 0.01 10^3/ul Nucleated RBC % 0.1 INR (Anticoag Therapy) 1.10 (0.89-1.11) APTT 33.0 (26.0-36.3) seconds Sodium 136 (133-145) mmol/L Potassium 4.6 (3.5-5.0) mmol/L Chloride 104 (101-111) mmol/L Carbon Dioxide 24 (22-32) mmol/L Anion Gap 8 (2-11) mmol/L BUN 13 (6-24) mg/dL Creatinine 0.75 (0.67-1.17) mg/dL Est GFR ( Amer) 131.7 (>60) Est GFR (Non-Af Amer) 102.4 (>60) BUN/Creatinine Ratio 17.3 (8-20) Glucose 126 H (70-100) mg/dL Calcium 9.3 (8.6-10.3) mg/dL Total Bilirubin 0.30 (0.2-1.0) mg/dL AST 28 (13-39) U/L ALT 58 H (7-52) U/L Alkaline Phosphatase 105 H (34-104) U/L Troponin I 0.01 (<0.04) ng/mL Total Protein 6.6 (6.4-8.9) g/dL Albumin 2.9 L (3.2-5.2) g/dL Globulin 3.7 (2-4) g/dL Albumin/Globulin Ratio 0.8 L (1-3) Microbiology and Other Data: Microbiology 02/06/17 11:30 Gram Stain - Final Wound Wound Culture - Preliminary Pseudomonas Aeruginosa Assess/Plan/Problems-Billing Assessment: Mr. Ramirez is a 71yo M with PMH of type 2 DM, HTN, HLD, CVA, left maxilla mass, recent admission for severe sepsis, hypernatremia, decubitus infection with Bacteroides bacteremia, presents from [facility], with altered MS and fever. - Patient Problems (1) Altered mental status Code(s): R41.82 - ALTERED MENTAL STATUS, UNSPECIFIED Comment: Appears improved CXR shows atelectasis. Encourage pulmonary toileting (difficult with patient's dementia) ? of PE with persistent tachycardia and new hypoxia - check CTA Sepsis and hypernatremia likely contributing ABG shows respiratory alkalosis, suspect from hyperventilation and potentially pain. 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 (2) Sepsis Comment: Met sepsis criteria on admission with fever and tachycardia. Source is likely chronic ostemyelitis. Initial CxR shows no infiltrate, and UA is negative. (3) Chronic osteomyelitis Code(s): M86.60 - OTHER CHRONIC OSTEOMYELITIS, UNSPECIFIED SITE Comment: Pseudomonas on wound culture with multiple resistances. Appreciate ID input - continue ceftriaxone and metronidazole per ID. (4) Decubitus ulcer Code(s): L89.90 - PRESSURE ULCER OF UNSPECIFIED SITE, UNSPECIFIED STAGE Comment: Continue wet to dry dressing. Appreciate wound consult. (5) HTN (hypertension) Code(s): I10 - ESSENTIAL (PRIMARY) HYPERTENSION Comment: Normotensive Patient not currently on home medications. (6) Diabetes Code(s): E11.9 - TYPE 2 DIABETES MELLITUS WITHOUT COMPLICATIONS Comment: Continue Lispro SS. (7) DVT prophylaxis Code(s): GBI0717 - Comment: SQ heparin (8) Full code status Code(s): Z78.9 - OTHER SPECIFIED HEALTH STATUS Status and Disposition: Inpatient. Plan for transfer to [facility], pending CTA results. Awaiting bed availability. HCP (daughter Liliana Angelo [phone])
[2017-02-11] MEDS ORDERED: Iodixanol* (CONTRAST) 320 MG/ML 100 ML SDV IV ONE (11:44)
[2017-02-11] MEDS: Morphine INJ* 2 MG/ML 1 ML SYRINGE IV SCH (14:01)
[2017-02-11] MEDS: cefTRIAXone VIAL(*) 1,000 MG in NS 0.9% 50 ML* 50 ML IVPB SCH ×2 (16:24→22:52)
[2017-02-11] MEDS: Enoxaparin(*) 80 MG/0.8 ML SYR SUBCUT SCH (21:03)
--- NOTE | 2017-02-11 22:57 | RAD ---
INDICATION: Tachycardia. Hypoxia. COMPARISON: February 10, 2017 chest radiograph and January 24, 2017 CT abdomen. TECHNIQUE: Exam repeated after earlier failed attempts due to IV line infiltration. Multidetector CT images were obtained from the lung apices to the upper abdomen with 69 mL Visipaque 320 IV contrast. Pulmonary angiogram protocol. Multiplanar reformation including with maximum intensity projection. REPORT: Mild patchy alveolar consolidation at the posterior and lateral basal segments of the RIGHT lower lobe is concerning for mild inflammatory infiltrate. Mild bibasilar subsegmental atelectasis. Negative for pleural effusions. Negative for pneumothorax. Enlarged thyroid lobes with extension to the superior mediastinum. Negative for thoracic lymphadenopathy, cardiomegaly, or significant pericardial effusion. Normal diameter thoracic aorta with mild atherosclerotic plaque. Negative for aortic dissection. Motion artifact limits the CT pulmonary angiogram. Suggestion of a filling defects at the segmental pulmonary artery to the posterior basal segment of the RIGHT lower lobe. No additional main to segmental or subsegmental pulmonary artery filling defects evident. Limited images through the upper abdomen are remarkable for residual pyelographic phase contrast from an earlier contrast injection. Negative for suspicious thoracic osseous lesions. IMPRESSION: 1. A solitary small filling defects identified within the segmental pulmonary artery to the posterior basal segment of the RIGHT lower lobe. [place] is concerning for pulmonary embolism the exam is limited due to motion artifact. Absence of additional pulmonary artery filling defects for confirmation suggest that the finding may be artifact. Nonetheless if it is a true pulmonary embolism the burden of PE is low. 2. Patchy consolidation at the posterior lateral basal segments of the RIGHT lower lobe is concerning for pneumonia.
[2017-02-12] MEDS: cefTRIAXone VIAL(*) 1,000 MG in NS 0.9% 50 ML* 50 ML IVPB SCH (00:11)
[2017-02-12] MEDS: Enoxaparin(*) 80 MG/0.8 ML SYR SUBCUT SCH ×2 (06:25→18:32)
[2017-02-12] MEDS: Morphine INJ* 2 MG/ML 1 ML SYRINGE IV SCH (08:40)
[2017-02-12] MEDS: Ferrous Sulfate TAB* 325 MG PO SCH (08:40)
[2017-02-12] MEDS: Insulin LISPRO* 1 UNITS UNIT SUBCUT SCH ×3 (08:40→17:26)
[2017-02-12] MEDS: Polyethylene Glycol 3350* 17 GM PACKET PO SCH (08:40)
--- NOTE | 2017-02-12 08:54 | PN ---
Subjective Date of Service: 02/12/17 Interval History: Patient seen and examined at bedside. Patient is pleasantly confused and nods at all conversation. When asked about specific complaints, he states, "I feel fine." Patient is OOB to chair and off oxygen. No new concerns or complaints. Family History: Unchanged from Admission Social History: Unchanged from Admission Past Medical History: Unchanged from Admission Objective Active Medications: Acetaminophen (Tylenol Tab*) 650 mg PO Q4H PRN PRN Reason: FEVER/PAIN Last Admin: 02/09/17 23:50 Dose: 650 mg Albuterol (Ventolin 2.5 Mg/3 Ml Neb.Preethi*) 2.5 mg INH Q6H PRN PRN Reason: SOB/WHEEZING Dextrose (D50w Syringe 50 Ml*) 12.5 gm IV PUSH .FOR FS < 60 - SS PRN PRN Reason: FS < 60 Enoxaparin Sodium (Lovenox(*)) 70 mg SUBCUT Q12H [facility] Last Admin: 02/12/17 06:25 Dose: 70 mg Ferrous Sulfate (Ferrous Sulfate Tab*) 325 mg PO DAILY [facility] Last Admin: 02/12/17 08:40 Dose: 325 mg Ceftriaxone Sodium 1,000 mg/ (Sodium Chloride) 50 mls @ 200 mls/hr IVPB 0000 [facility] Last Admin: 02/12/17 00:11 Dose: 200 mls/hr Metronidazole/Sodium Chloride (Flagyl 500 Mg Ivpb*) 500 mg in 100 mls @ 100 mls /hr IVPB 1100,2300 [facility] Last Admin: 02/11/17 22:46 Dose: 100 mls/hr Insulin Human Lispro (Humalog*) 0 units SUBCUT AC [facility] PRN Reason: Protocol Last Admin: 02/12/17 08:40 Dose: 1 unit Morphine Sulfate (Morphine Inj (Syringe)*) 2 mg IV DAILY [facility] Last Admin: 02/12/17 08:40 Dose: 2 mg Ondansetron HCl (Zofran Inj*) 4 mg IV Q6H PRN PRN Reason: NAUSEA Polyethylene Glycol/Electrolytes (Miralax*) 17 gm PO DAILY [facility] Last Admin: 02/12/17 08:40 Dose: 17 gm Vital Signs 02/11/17 02/11/17 02/11/17 10:05 12:49 14:01 Temperature 99.0 F Pulse Rate 115 103 Respiratory 18 20 Rate Blood Pressure 125/79 (mmHg) O2 Sat by Pulse 100 100 Oximetry 02/11/17 02/11/17 02/11/17 15:01 16:56 20:00 Temperature 99.5 F 99.9 F Pulse Rate 115 Respiratory 18 20 16 Rate Blood Pressure 128/84 (mmHg) O2 Sat by Pulse 100 100 Oximetry 02/11/17 02/11/17 02/12/17 20:26 23:19 03:29 Temperature 99.6 F 98.4 F Pulse Rate 116 106 115 Respiratory 16 16 Rate Blood Pressure 132/73 134/85 126/83 (mmHg) O2 Sat by Pulse 100 100 100 Oximetry 02/12/17 08:40 Temperature Pulse Rate Respiratory 16 Rate Blood Pressure (mmHg) O2 Sat by Pulse Oximetry Oxygen Devices in Use Now: Nasal Cannula Appearance: Elderly male, sitting up in chair, NAD Eyes: PERRLA Ears/Nose/Mouth/Throat: Mucous Membranes Moist Neck: NL Appearance and Movements; NL JVP Respiratory: Symmetrical Chest Expansion and Respiratory Effort, - - diminished bases, fair aeration throughout Cardiovascular: NL Sounds; No Murmurs; No JVD, RRR - tachycardic Abdominal: NL Sounds; No Tenderness; No Distention Neurological: - - Alert, oriented to self Lines/Tubes/Other Access: Clean, Dry and Intact Peripheral IV Nutrition: Taking PO's Result Diagrams: 02/11/17 05:20 02/11/17 05:20 Additional Lab and Data: Lab Results 02/04/17 02/04/17 02/04/17 Range/Units 17:18 17:18 17:18 WBC 10.7 (3.5-10.8) 10^3/ul RBC 3.75 L (4.0-5.4) 10^6/ul Hgb 10.5 L (14.0-18.0) g/dl Hct 33 L (42-52) % MCV 88 (80-94) fL MCH 28 (27-31) pg MCHC 32 (31-36) g/dl RDW 19 H (10.5-15) % Plt Count 416 (150-450) 10^3/ul MPV 7 L (7.4-10.4) um3 Neut % (Auto) 79.3 (38-83) % Lymph % (Auto) 13.4 L (25-47) % [place] % (Auto) 6.4 (1-9) % Eos % (Auto) 0.7 (0-6) % Baso % (Auto) 0.2 (0-2) % Absolute Neuts (auto) 8.5 H (1.5-7.7) 10^3/ul Absolute Lymphs (auto) 1.4 (1.0-4.8) 10^3/ul Absolute Monos (auto) 0.7 (0-0.8) 10^3/ul Absolute Eos (auto) 0.1 (0-0.6) 10^3/ul Absolute Basos (auto) 0 (0-0.2) 10^3/ul Absolute Nucleated RBC 0.01 10^3/ul Nucleated RBC % 0.1 INR (Anticoag Therapy) 1.10 (0.89-1.11) APTT 33.0 (26.0-36.3) seconds Sodium 136 (133-145) mmol/L Potassium 4.6 (3.5-5.0) mmol/L Chloride 104 (101-111) mmol/L Carbon Dioxide 24 (22-32) mmol/L Anion Gap 8 (2-11) mmol/L BUN 13 (6-24) mg/dL Creatinine 0.75 (0.67-1.17) mg/dL Est GFR ( Amer) 131.7 (>60) Est GFR (Non-Af Amer) 102.4 (>60) BUN/Creatinine Ratio 17.3 (8-20) Glucose 126 H (70-100) mg/dL Calcium 9.3 (8.6-10.3) mg/dL Total Bilirubin 0.30 (0.2-1.0) mg/dL AST 28 (13-39) U/L ALT 58 H (7-52) U/L Alkaline Phosphatase 105 H (34-104) U/L Troponin I 0.01 (<0.04) ng/mL Total Protein 6.6 (6.4-8.9) g/dL Albumin 2.9 L (3.2-5.2) g/dL Globulin 3.7 (2-4) g/dL Albumin/Globulin Ratio 0.8 L (1-3) Microbiology and Other Data: Microbiology 02/06/17 11:30 Gram Stain - Final Wound Wound Culture - Preliminary Pseudomonas Aeruginosa Assess/Plan/Problems-Billing Assessment: Mr. Ramirez is a 71yo M with PMH of type 2 DM, HTN, HLD, CVA, left maxilla mass, recent admission for severe sepsis, hypernatremia, decubitus infection with Bacteroides bacteremia, presents from [facility], with altered MS and fever. - Patient Problems (1) Tachycardia Code(s): R00.0 - TACHYCARDIA, UNSPECIFIED Comment: Present since admission and has not responded to IVF or antibiotics Hypoxia noted on 02/10 overnight, patient now on RA again CTA chest with questionable segmental PE (may be artifact) and RLL pneumonia Patient has been on multiple antibiotics since admission. Will discuss with ID antibiotic choice with this new finding. Patient now on RA and mentating at baseline. EKG shows sinus tachycardia. (2) Altered mental status Code(s): R41.82 - ALTERED MENTAL STATUS, UNSPECIFIED Comment: Back to baseline mental state. 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 (3) Sepsis Comment: Met sepsis criteria on admission with fever and tachycardia. Source is likely chronic ostemyelitis. Initial CxR shows no infiltrate, and UA is negative. (4) Chronic osteomyelitis Code(s): M86.60 - OTHER CHRONIC OSTEOMYELITIS, UNSPECIFIED SITE Comment: Pseudomonas on wound culture with multiple resistances. Appreciate ID input - continue ceftriaxone and metronidazole per ID. (5) Decubitus ulcer Code(s): L89.90 - PRESSURE ULCER OF UNSPECIFIED SITE, UNSPECIFIED STAGE Comment: Continue wet to dry dressing. Appreciate wound consult. (6) HTN (hypertension) Code(s): I10 - ESSENTIAL (PRIMARY) HYPERTENSION Comment: Normotensive Patient not currently on home medications. (7) Diabetes Code(s): E11.9 - TYPE 2 DIABETES MELLITUS WITHOUT COMPLICATIONS Comment: Continue Lispro SS. (8) DVT prophylaxis Code(s): OUS9393 - Comment: SQ heparin (9) Full code status Code(s): Z78.9 - OTHER SPECIFIED HEALTH STATUS Status and Disposition: Inpatient. Plan for transfer to [facility], pending CTA results. Awaiting bed availability. HCP (daughter Liliana Angelo [phone])
--- NOTE | 2017-02-12 10:26 | PN ---
Progress Note - Progress Note SOAP: Subjective: DOS: 02/12/17 CC: ulcer HPI: 71 yo man with hx CVA, nonverbal admitted with fever; his decubitus ulcer was improved compared to discharge, he had ongoing fever and tachycardia while on IV antibiotics. No fever in 48 hours. He cannot provide any history Objective: [] Vital Signs Temp 36.7 C 02/12/17 07:34 Pulse 110 02/12/17 10:04 Resp 16 02/12/17 10:04 BP 121/74 02/12/17 07:34 Pulse Ox 96 02/12/17 10:04 Intake & Output 02/11/17 02/12/17 02/12/17 18:59 06:59 18:59 Intake Total 1190 130 360 Output Total 875 1850 Balance 315 -1720 360 Weight 153 lb Intake: IV Fluids 20 20 NS (0.9%) 20 20 IVPB 110 110 flagyl 110 110 Oral 1060 0 360 Output: Ortiz 875 1850 Other: # Bowel Movements 1 Estimated Stool Amount Small Large Gen:no distress Neuro:awake, nods head to some questions HEENT:PERRL, MMM Neck:supple Heart:RRR no murmur Lungs:decr BS at bases no wheeze Abd:+BS NTND soft Skin: no rash MSK: multiple sacral decubitus ulcers; no surrounding erythema Laboratory Results - last 24 hr 02/11/17 02/11/17 02/11/17 11:44 16:59 22:05 D-Dimer, Quantitative 955 H POC Glucose (mg/dL) 144 H 171 H 02/12/17 08:14 D-Dimer, Quantitative POC Glucose (mg/dL) [address] chest: small infiltrate right lung base; per radiology there is also a possible PE Assessment: 1. Decubitus ulcer, with chronic osteomyelitis due to MSSA; Pseudomonas growing now is colonization given so local sign of infection 2. Pneumonia, suspect aspiration 3. PE 4. Hx CVA 5. diabetes Plan: 1. continue ceftriaxone 1 gm daily and flagyl 500 mg Q12hrs (will change to PO) , will plan on 4 week course; attention to wound care and off loading 2. anticoagulation per hospitalists Discussed with Jen Mackenzie NP
[2017-02-12] MEDS: metroNIDAZOLE IV 500 MG/100ML* 500 MG/100 ML BAG IVPB SCH ×2 (11:10→18:35)
--- NOTE | 2017-02-12 13:45 | PN ---
Hospitalist Progress Note [facility] contacted this morning at 8:30am; admissions requested that I contact Dr. Montilla. A message was left for Dr. Montilla ( accepting physician) at this time. Repeat phone call made at 1130. Admissions at the hospital unwilling to give bed assignment until they speak with Dr. Montilla, who is not working today. I did ask to speak with one of his colleagues but apparently he does not have a colleague who can accept the patient in his place.
--- NOTE | 2017-02-12 18:28 | DS ---
TRANSFER SUMMARY DATE OF ADMISSION: 02/04/2017 DATE OF DISCHARGE: 02/13/2017 PROVIDER: Jakob Hoyt NP. ATTENDING PHYSICIAN: Dr. Arnoldo Chavira *(as dictated by Jakob Hoyt NP). CONSULTING PHYSICIANS: Dr. Alia Castro, Palliative Care Services; Dr. Narendra Dasilva, Infectious Disease PRIMARY CARE PHYSICIAN: Destiney Can MD PRIMARY DISCHARGE DIAGNOSES: 1. Sepsis, suspect secondary to chronic osteomyelitis with infected sacral decubitus. 2. Chronic urinary retention, likely secondary to neurogenic bladder, with chronic Ortiz in place. 3. Tachycardia, suspect secondary to small segmental pulmonary embolus and right lower lobe pneumonia. SECONDARY DISCHARGE DIAGNOSES: 1. Hypertension. 2. Type 2 diabetes. 3. Hyperlipidemia. 4. Possible history of cerebrovascular accident. 5. Left maxillary sinus pleomorphic adenoma. 6. Dementia. 7. Severe protein calorie malnutrition. 8. Anemia of chronic disease. DIAGNOSTIC TESTING DURING THIS ADMISSION: 1. CT of the chest and thorax. Impression: (1) trace small filling defect is identified within the segmental pulmonary artery to the posterior basal segment of the right lower lobe. This is concerning for pulmonary embolus, the exam was limited due to motion artifact. Absence of additional pulmonary artery filling defect for confirmation suggests that the finding may be artifact. Nevertheless if it is a true pulmonary embolus burden of PE is low. (2) patchy consolidation of the posterior lateral basal segment of the right lower lobe is concerning for pneumonia. 2. MRI of the brain. Impression: (1) Limited study. (2) Noted is an expansile mass of the left maxilla without appreciable PROGRAM ARRANGER extension. (3) Diffuse involutional changes elevated T2/3 in the periventricular and subcortical white matter, suggestive of advanced chronic small vessel ischemic change. HOSPITAL COURSE OF STAY: This is an addendum to the original transfer summary provided by Dr. Story on 02/06/17. Please also refer to the H&P provided by nurse practitioner, Donnell Burton on 02/04/17. In summary, Mr. Ramirez is a 71-year- old male patient who presented to the ER on 02/04/17. He was [facility] by [facility] with concern for altered mental status. Patient has had previous admissions recurrently over the past several months. A few months ago, when the patient was admitted in December, patient was found to have aspiration pneumonia, dehydration, and severe hypernatremia with improvement following treatment. Patient was recommended to go to a care home for rehabilitation, but his girlfriend was adamant that he not be sent to a care home, so he was discharged to home under her care. The patient was readmitted in January with worsening lethargy and weakness, and was found to have significant worsening of his sacral decubitus ulcer with significant infection and foul smelling discharge. The patient was found to be septic with bacteroides septicemia, as well as a wound culture positive for MRSA. For further details please refer to the Transfer Summary dictated by Dr. Story on 02/04/17. After receiving treatment, [facility] Then was referred back to the emergency room once again with lethargy and fever on 02/04/17 where it was determined that this admission he was most likely septic from his chronic sacral osteomyelitis, as well as a sacral decubitus infection. The family dynamics are multifactorial and in depth. The patient has 2 daughters , 1 who lives in [place] and another 1 who lives in [facility], as well as a son who also lives in [facility]. His children have requested that the patient be transferred to a hospital local to them so that they can be more attentive to his care. We did have Palliative Care consult on the patient and discuss his code status with the family. At this time they decline any palliative care and wish for their father to remain a full code until he is transferred to a local [facility] hospital where they can personally assess his medical status and further decide on his code status there. The patient also has a known history of maxillary sinus neoplasm and has been seen by local ENT. The patient was previously referred to a tertiary center but was unable to make it due to frequent admissions and inability to travel. Per the patient's girlfriend, the patient reportedly had a stroke with left-sided hemiparesis, but there is no evidence of this in our computer system. There is concern that his neurologic symptoms may be associated with his maxillary tumor , but this patient is currently not in stable condition to survive or tolerate a surgery. A recent MRI does not show any definitive extension of the tumor. With this admission, the patient was initially treated with metronidazole, vancomycin and cefepime. His wound cultures came back positive for pseudomonas which was showed resistance to cefepime. At this point the patient was switched to ciprofloxacin and metronidazole, per the susceptibility report. ID was reconsulted who switched the patient back to ceftriaxone and Flagyl. Our ID specialist is familiar with the patient. He feels that the pseudomonas growing in the wound is most likely a colonization and not an acute infection as there is no outward appearance of infection, including no foul odor, significant drainage or surrounding erythema. Patient had previously grown enterococcus and bacteroides in the wound, and so he has continued Flagyl and ceftriaxone for treatment of the patient. The patient's daughter, Gi Cardenas, who is acting as the decision maker, initially requested the patient be transferred to [facility]; however , they declined to accept the patient. He has been continued here as an inpatient. In this time, the patient has demonstrated waxing and waning mental status, but has recently improved. His baseline has been alert and awake, oriented to self, with the ability to answer simple questions. He is minimally verbal. He was found to be hypoxic overnight on 02/10/17 and required supplemental O2, which is new for him. Additionally, since admission, the patient has been tachycardic. His EKG showed sinus tachycardia. In review of old records, it appears the patient has had a history of tachycardia for quite some time. However, with concern for sepsis on admission, we had the patient on aggressive hydration and antibiotics, which did not make any significant difference in the patient's heart rate. With the hypoxia, there was concern the patient may have a pulmonary embolus, as he has multiple risk factors, including bedbound status and maxillary tumor. The patient's D-dimer was 955. Patient was started on b.i.d. Lovenox, which we felt is reasonable to continue as the patient is at high risk for PE, even with the questionable finding of PE (versus artifact) on the CTA. As of 02/12/17, the patient is more stable and at his baseline mental state. He has been weaned off of oxygen and has saturation levels greater than 93% on room air. He is alert and was able to minimally converse with simple sentences and words. He is stable and he has a bed offer at [facility] per the family request. PHYSICAL EXAMINATION: Vital signs: Temperature 98.0, heart rate 110, respiratory rate 18, blood pressure 122/82, O2 saturation is 96% on room air. General: Mr. Ramirez is an elderly male who is out of bed to chair. He is in no acute distress. Cardiac: S1, S2. Heart sounds regular rate and rhythm. Respiratory: Lungs are clear to auscultation, though slightly diminished. Breath sounds are present in all lung benoit with fair aeration. Abdomen: Soft, nontender. Bowel sounds are present. Extremities: Patient has multiple scabbed lesions to the lower extremities, as well as the dorsal surfaces and soles of his feet. There is a stage 4 decubitus ulcer with tunneled lesions that are communicating with other lesions. He also has a stage 2 decubitus to the ischial tuberosity. Neuro: The patient is alert and oriented to self only. He is able to respond to questions with "yes" and "no", and simple sentences. There is left hemiparesis present. He has a Ortiz catheter draining clear rsoalee urine. CONCERNS AT DISCHARGE: Mr. Ramirez will be discharged on 02/13/17 to [facility]. The accepting physician is Dr. Kp Montilla. WOUND CARE RECOMMENDATIONS: Patient has sacral ulcer, measuring 7 cm x 12.2 cm x 2 cm with undermining from 5:00 position to 2:00 position with maximum depth of undermining at 5:00 position of 3.8 cm. Ulcer communicates with a secondary ulcer on the right upper gluteus that measures 2.1 cm x 4.8 cm x 1.2 cm. Main ulcer has medium red granulation and medium yellow slough, secondary ulcer is large amount of red granulation. Recommend continuation of wet to dry dressing changes daily. DIET: Consistent carbohydrate diet with a pureed bumpy texture. ACTIVITY: As tolerated. MEDICATIONS AT DISCHARGE: 1. Acetaminophen 650 mg every 4 hours p.r.n. 2. Albuterol 2.5 mg inhaled every 6 hours p.r.n. 3. Ceftriaxone 1 g every 24 hours. 4. Lovenox 70 mg subcu every 12 hours. 5. Ferrous sulfate 325 mg daily. 6. Lispro sliding scale insulin before meals. 7. Metronidazole 500 mg every 12 hours. 8. Morphine 2 mg IV daily prior to dressing change. 9. Zofran 4 mg IV every 6 hours p.r.n. 10. MiraLax 17 g daily. DISPOSITION: To [facility]. STATUS WHILE IN THE HOSPITAL: Inpatient. This is only a brief summary of the patient's hospital course of stay. This is also an addendum to the original Transfer Summary that was provided by Dr. Story on 02/06/17. For more information please refer the History and Physical, Consultations, and Radiology records. Please feel free to contact me at [phone] for further questions or concerns. Please obtain the full medical records for any further information. TIME SPENT: A 55 minutes in completion of this discharge and transfer. JAKOB HOYT NP CC: Dr. Destiney Can * [id number]/CPS #: [id number] LAINEYD
[2017-02-13] MEDS: cefTRIAXone VIAL(*) 1,000 MG in NS 0.9% 50 ML* 50 ML IVPB SCH (01:14)
[2017-02-13 05:02] VITALS: BP 135/87
[2017-02-13] MEDS: metroNIDAZOLE IV 500 MG/100ML* 500 MG/100 ML BAG IVPB SCH (06:06)
[2017-02-13] MEDS: Enoxaparin(*) 80 MG/0.8 ML SYR SUBCUT SCH (06:06)
--- NOTE | 2017-02-13 07:15 | DCNOTE ---
Subjective Date of Service: 02/13/17 Interval History: Patient seen and examined at bedside. No verbalization this morning but he nods his head yes when asked if he feels okay. No acute concerns overnight or this morning. Patient receiving morning dose of IV antibiotics and has eaten breakfast. Plan for transfer via [facility] this AM to [facility], per family's wishes. Family History: Unchanged from Admission Social History: Unchanged from Admission Past Medical History: Unchanged from Admission Objective Active Medications: Acetaminophen (Tylenol Tab*) 650 mg PO Q4H PRN PRN Reason: FEVER/PAIN Last Admin: 02/09/17 23:50 Dose: 650 mg Albuterol (Ventolin 2.5 Mg/3 Ml Neb.Preethi*) 2.5 mg INH Q6H PRN PRN Reason: SOB/WHEEZING Dextrose (D50w Syringe 50 Ml*) 12.5 gm IV PUSH .FOR FS < 60 - SS PRN PRN Reason: FS < 60 Enoxaparin Sodium (Lovenox(*)) 70 mg SUBCUT Q12H [facility] Last Admin: 02/13/17 06:06 Dose: 70 mg Ferrous Sulfate (Ferrous Sulfate Tab*) 325 mg PO DAILY [facility] Last Admin: 02/12/17 08:40 Dose: 325 mg Ceftriaxone Sodium 1,000 mg/ (Sodium Chloride) 50 mls @ 200 mls/hr IVPB 0000 [facility] Last Admin: 02/13/17 01:14 Dose: 200 mls/hr Metronidazole/Sodium Chloride (Flagyl 500 Mg Ivpb*) 500 mg in 100 mls @ 100 mls /hr IVPB 0700,1900 [facility] Last Admin: 02/13/17 06:06 Dose: 100 mls/hr Insulin Human Lispro (Humalog*) 0 - 10 units SUBCUT AC [facility] PRN Reason: Protocol Morphine Sulfate (Morphine Inj (Syringe)*) 2 mg IV DAILY [facility] Last Admin: 02/12/17 08:40 Dose: 2 mg Ondansetron HCl (Zofran Inj*) 4 mg IV Q6H PRN PRN Reason: NAUSEA Polyethylene Glycol/Electrolytes (Miralax*) 17 gm PO DAILY [facility] Last Admin: 02/12/17 08:40 Dose: 17 gm Vital Signs 02/12/17 02/12/17 02/12/17 07:34 08:00 08:40 Temperature 98.0 F Pulse Rate 111 Respiratory 16 16 Rate Blood Pressure 121/74 (mmHg) O2 Sat by Pulse 97 96 Oximetry 02/12/17 02/12/17 02/12/17 09:40 10:04 16:08 Temperature 99.1 F Pulse Rate 110 116 Respiratory 18 16 18 Rate Blood Pressure 122/82 (mmHg) O2 Sat by Pulse 96 100 Oximetry 02/12/17 02/12/17 02/12/17 19:46 20:00 23:15 Temperature 100.7 F 97.6 F Pulse Rate 117 114 Respiratory 22 22 17 Rate Blood Pressure 120/78 120/74 (mmHg) O2 Sat by Pulse 100 100 99 Oximetry 02/13/17 04:52 Temperature 97.5 F Pulse Rate 104 Respiratory 17 Rate Blood Pressure 135/87 (mmHg) O2 Sat by Pulse 86 Oximetry Oxygen Devices in Use Now: Nasal Cannula Appearance: Elderly male, sitting up in bed, NAD Ears/Nose/Mouth/Throat: Mucous Membranes Moist Neck: NL Appearance and Movements; NL JVP Respiratory: Symmetrical Chest Expansion and Respiratory Effort, Clear to Auscultation Cardiovascular: NL Sounds; No Murmurs; No JVD, RRR - tachycardic Abdominal: NL Sounds; No Tenderness; No Distention Neurological: - - Alert, awake, non-verbal this AM, oriented to self only Lines/Tubes/Other Access: Clean, Dry and Intact Peripheral IV Nutrition: Taking PO's Result Diagrams: 02/11/17 05:20 02/11/17 05:20 Additional Lab and Data: Lab Results 02/04/17 02/04/17 02/04/17 Range/Units 17:18 17:18 17:18 WBC 10.7 (3.5-10.8) 10^3/ul RBC 3.75 L (4.0-5.4) 10^6/ul Hgb 10.5 L (14.0-18.0) g/dl Hct 33 L (42-52) % MCV 88 (80-94) fL MCH 28 (27-31) pg MCHC 32 (31-36) g/dl RDW 19 H (10.5-15) % Plt Count 416 (150-450) 10^3/ul MPV 7 L (7.4-10.4) um3 Neut % (Auto) 79.3 (38-83) % Lymph % (Auto) 13.4 L (25-47) % Esmeralda % (Auto) 6.4 (1-9) % Eos % (Auto) 0.7 (0-6) % Baso % (Auto) 0.2 (0-2) % Absolute Neuts (auto) 8.5 H (1.5-7.7) 10^3/ul Absolute Lymphs (auto) 1.4 (1.0-4.8) 10^3/ul Absolute Monos (auto) 0.7 (0-0.8) 10^3/ul Absolute Eos (auto) 0.1 (0-0.6) 10^3/ul Absolute Basos (auto) 0 (0-0.2) 10^3/ul Absolute Nucleated RBC 0.01 10^3/ul Nucleated RBC % 0.1 INR (Anticoag Therapy) 1.10 (0.89-1.11) APTT 33.0 (26.0-36.3) seconds Sodium 136 (133-145) mmol/L Potassium 4.6 (3.5-5.0) mmol/L Chloride 104 (101-111) mmol/L Carbon Dioxide 24 (22-32) mmol/L Anion Gap 8 (2-11) mmol/L BUN 13 (6-24) mg/dL Creatinine 0.75 (0.67-1.17) mg/dL Est GFR ( Amer) 131.7 (>60) Est GFR (Non-Af Amer) 102.4 (>60) BUN/Creatinine Ratio 17.3 (8-20) Glucose 126 H (70-100) mg/dL Calcium 9.3 (8.6-10.3) mg/dL Total Bilirubin 0.30 (0.2-1.0) mg/dL AST 28 (13-39) U/L ALT 58 H (7-52) U/L Alkaline Phosphatase 105 H (34-104) U/L Troponin I 0.01 (<0.04) ng/mL Total Protein 6.6 (6.4-8.9) g/dL Albumin 2.9 L (3.2-5.2) g/dL Globulin 3.7 (2-4) g/dL Albumin/Globulin Ratio 0.8 L (1-3) Microbiology and Other Data: Microbiology 02/06/17 11:30 Gram Stain - Final Wound Wound Culture - Preliminary Pseudomonas Aeruginosa Assess/Plan/Problems-Billing Assessment: Mr. Ramirez is a 71yo M with PMH of type 2 DM, HTN, HLD, CVA, left maxilla mass, recent admission for severe sepsis, hypernatremia, decubitus infection with Bacteroides bacteremia, presents from [facility], with altered MS and fever. - Patient Problems (1) Tachycardia Code(s): R00.0 - TACHYCARDIA, UNSPECIFIED Comment: Present since admission and has not responded to IVF or antibiotics Hypoxia noted on 02/10 overnight, patient now on RA again CTA chest with questionable segmental PE (may be artifact) and RLL pneumonia Continue current antibiotic regimen, as patient has been on multiple antibiotics since admission. Will be covered since he is being treated for 4 week course for sepsis/infected decubitus. Patient now on RA and mentating at baseline. EKG shows sinus tachycardia. (2) Altered mental status Code(s): R41.82 - ALTERED MENTAL STATUS, UNSPECIFIED Comment: Back to baseline mental state. 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 (3) Sepsis Comment: Met sepsis criteria on admission with fever and tachycardia. Source is likely chronic ostemyelitis and RLL pneumonia. UA is negative. (4) Chronic osteomyelitis Code(s): M86.60 - OTHER CHRONIC OSTEOMYELITIS, UNSPECIFIED SITE Comment: Pseudomonas on wound culture with multiple resistances. Appreciate ID input - continue ceftriaxone and metronidazole per ID. (5) Decubitus ulcer Code(s): L89.90 - PRESSURE ULCER OF UNSPECIFIED SITE, UNSPECIFIED STAGE Comment: Continue wet to dry dressing. Appreciate wound consult. (6) HTN (hypertension) Code(s): I10 - ESSENTIAL (PRIMARY) HYPERTENSION Comment: Normotensive Patient not currently on home medications. (7) Diabetes Code(s): E11.9 - TYPE 2 DIABETES MELLITUS WITHOUT COMPLICATIONS Comment: Continue Lispro SS. Hold AM dose in anticipation of transfer. (8) DVT prophylaxis Code(s): ZGJ2099 - Comment: SQ heparin (9) Full code status Code(s): Z78.9 - OTHER SPECIFIED HEALTH STATUS Status and Disposition: Inpatient. Plan for transfer to [facility] this morning. HCP (daughter Liliana Angelo [phone])
[2017-02-13] MEDS: Morphine INJ* 2 MG/ML 1 ML SYRINGE IV SCH (07:19)
[2017-02-13] MEDS: Ferrous Sulfate TAB* 325 MG PO SCH (07:19)
[2017-02-13] MEDS: Polyethylene Glycol 3350* 17 GM PACKET PO SCH (07:20)
[2017-02-13] MEDS ORDERED: Insulin LISPRO* 1 UNITS UNIT SUBCUT SCH (11:30)
== END 2017-02-13 08:25 | disposition short-term general hospital (02) | DRG 871 ==
LOC: ED 16:37 → MED 19:39
PROVIDERS: ADMIT Internal Medicine; ATTEND Internal Medicine
DX: A41.9 Sepsis, unspecified organism (principal); L89.154 Pressure ulcer of sacral region, stage 4; I26.99 Other pulmonary embolism without acute cor pulmonale; E43 Unspecified severe protein-calorie malnutrition; G93.40 Encephalopathy, unspecified; L89.312 Pressure ulcer of right buttock, stage 2; E87.3 Alkalosis; J18.9 Pneumonia, unspecified organism; E11.69 Type 2 diabetes mellitus with other specified complication; M46.28 Osteomyelitis of vertebra, sacral and sacrococcygeal region; I69.354 Hemiplegia and hemiparesis following cerebral infarction affecting left non-dominant side; I10 Essential (primary) hypertension; R40.2412 Glasgow coma scale score 13-15, at arrival to emergency department; E78.5 Hyperlipidemia, unspecified; N31.9 Neuromuscular dysfunction of bladder, unspecified; L89.620 Pressure ulcer of left heel, unstageable; L89.610 Pressure ulcer of right heel, unstageable; E88.09 Other disorders of plasma-protein metabolism, not elsewhere classified; D63.8 Anemia in other chronic diseases classified elsewhere; F01.50 Vascular dementia, unspecified severity, without behavioral disturbance, psychotic disturbance, mood disturbance, and anxiety; Z51.5 Encounter for palliative care; D14.0 Benign neoplasm of middle ear, nasal cavity and accessory sinuses; B95.2 Enterococcus as the cause of diseases classified elsewhere; B96.89 Other specified bacterial agents as the cause of diseases classified elsewhere; R09.02 Hypoxemia; Z87.891 Personal history of nicotine dependence; Z87.440 Personal history of urinary (tract) infections; Z68.22 Body mass index [BMI] 22.0-22.9, adult; Z16.19 Resistance to other specified beta lactam antibiotics; Z22.39 Carrier of other specified bacterial diseases; Z74.01 Bed confinement status
CPT/HCPCS: 36415; 36600; 70551; 71010; 71275; 80048; 80053; 80202; 81003; 81015; 82140; 82375; 82565; 82803; 83605; 84484; 84520; 85025; 85379; 85610; 85730; 86140; 87040; 87070; 87077; 87086; 87181; 87186; 87205; 93005; 94640; 94760; A9270-GY; J0692; J0696; J0744; J1644; J1650; J2270; J3370; Q9967